=== PATIENT | male | born 1950 | race African-American/Black ===

== ENCOUNTER 2016-04-21 14:08 | Observation (INO) | payer OTHER ==
--- NOTE | 2016-04-21 14:18 | PDOC ---
History of Present Illness - History of Present Illness Initial Comments: 04/21/16 14:46 The patient is a 66 year old male with a past medical hx of IDDM, HTN who presents to the ED via EMS for evaluation of hyperglycemia. The patient states he has been eating a lot of candy since last night. He also reports he has been eating a lot of food. He reports his aide took his blood sugar levels this morning. She saw the level was very high and though he did not look well so called 911. He reports he feels fine while in the ED. The patient denies chest pain, SOB The patient denies headache, paresthesias, dizziness The patient denies nausea, vomiting, diarrhea PCP: Dr armani wellington <Mili Burris - Last Filed: 04/21/16 15:46> <Lucy Martell - Last Filed: 04/22/16 06:26> - General History Source: Patient Exam Limitations: No Limitations <Jess Terry - Last Filed: 04/23/16 11:39> - General Stated Complaint: HYPERGLYCEMIA Time Seen by Provider: 04/21/16 14:18 Past History <Mili Burris - Last Filed: 04/21/16 15:46> <Lucy Martell - Last Filed: 04/22/16 06:26> - Past Medical History Anemia: No Asthma: No Cancer: No Cardiac Disorders: Yes CVA: No COPD: No CHF: No DVT: No Dementia: No Diabetes: Yes Dialysis: No GI Disorders: No Disorders: No HTN: Yes Hypercholesterolemia: Yes Liver Disease: No Seizures: No Thyroid Disease: No - Surgical History Abdominal Surgery: No Appendectomy: No Cardiac Surgery: Yes (CARDIAC STENT) Cholecystectomy: No Lung Surgery: No Neurologic Surgery: No Orthopedic Surgery: No - Immunization History Immunization Up to Date: Yes - Psycho/Social/Smoking Cessation Hx Anxiety: No Suicidal Ideation: No Smoking Status: Yes Smoking History: Never smoked Have you smoked in the past 12 months: Yes Number of Cigarettes Smoked Daily: 4 Cigars Per Day: 0 'Breaking Loose' booklet given: 09/08/11 Hx Alcohol Use: No Drug/Substance Use Hx: No Substance Use Type: Alcohol, Cocaine, Marijuana Hx Substance Use Treatment: No <Jess Terry - Last Filed: 04/23/16 11:39> - Past Medical History Allergies/Adverse Reactions: Allergies Allergy/AdvReac Type Severity Reaction Status Date / Time No Known Allergies Allergy Verified 04/21/16 22:04 Home Medications: Ambulatory Orders Amlodipine Besylate [Norvasc -] 5 mg PO DAILY 07/16/13 Aspirin [ASA -] 81 mg PO DAILY 07/16/13 Carvedilol 3.125 mg PO DAILY 07/16/13 Furosemide [Lasix -] 40 mg PO DAILY 07/16/13 Lisinopril [Prinivil] 20 mg PO DAILY 07/16/13 Atorvastatin Ca [Lipitor] 40 mg PO HS #30 tablet 08/13/14 Fenofibric Acid [Trilipix -] 135 mg PO DAILY #30 cap 08/13/14 Hum Insulin NPH/Reg Insulin Hm [Novolin 70-30 100 Unit/ml Vial] 50 unit SQ BID 01/22/15 Naproxen [Naprosyn -] 500 mg PO BID PRN #20 tablet 03/10/15 Potassium Chloride [K-Dur] 20 meq PO BID #10 tab.er.prt 03/10/15 Review of Systems - Review of Systems Able to Perform ROS?: Yes Comments:: 04/21/16 14:47 GENERAL/CONSTITUTIONAL: No: fever, chills, weakness, loss of appetite. HEAD, EYES, EARS, NOSE AND THROAT: No: change in vision, ear pain, discharge, sore throat, throat swelling. CARDIOVASCULAR: No: chest pain, lightheadedness, palpitations, syncope RESPIRATORY: No: cough, shortness of breath, wheezing, hemoptysis, stridor. GASTROINTESTINAL: No: nausea, vomiting, abdominal cramping, diarrhea, rectal bleeding, constipation. GENITOURINARY: No: dysuria, hematuria, frequency, urgency, flank pain. MUSCULOSKELETAL: No: back pain, neck pain, joint pain, muscle swelling or pain SKIN: No: lesions, pallor, rash or easy bruising. NEUROLOGIC: No: headache, vertigo, paresthesias, weakness ENDOCRINE: No: unexplained weight gain or loss HEMATOLOGIC/LYMPHATIC: No: anemia, easy bleeding, swelling nodes <Mili Burris - Last Filed: 04/21/16 15:46> *Physical Exam - Vital Signs Last Vital Signs Temp Pulse Resp BP Pulse Ox 98.8 F 100 H 20 127/82 97 04/21/16 14:17 04/21/16 14:17 04/21/16 14:17 04/21/16 14:17 04/21/16 14:17 - Physical Exam Comments: 04/21/16 15:46 GENERAL: The patient is in no acute distress. HEAD: Normal with no signs of trauma. EYES: PERRLA, EOMI, sclera anicteric, conjunctiva clear. ENT: +Dry mucous membranes. Ears normal, nares patent, oropharynx clear without exudates. NECK: Normal range of motion, supple without lymphadenopathy, JVD, or masses. LUNGS: Breath sounds equal, clear to auscultation bilaterally. No wheezes, and no crackles. HEART:Regular rate and rhythm, normal S1 and S2 without murmur, rub or gallop. ABDOMEN: Soft, nontender, normoactive bowel sounds. No guarding, no rebound. EXTREMITIES: Normal range of motion, no edema. No clubbing or cyanosis. No erythema, or tenderness. NEUROLOGICAL: Cranial nerves II through XII grossly intact. Normal speech. No focal neurological deficits. MUSCULOSKELETAL: Back nontender to palpation, no CVA tenderness SKIN: Warm, Dry, normal turgor, no rashes or lesions noted. <Mili Burris - Last Filed: 04/21/16 15:46> - Vital Signs Last Vital Signs Temp Pulse Resp BP Pulse Ox 98.0 F 95 H 18 136/84 96 04/21/16 21:03 04/21/16 21:03 04/21/16 21:03 04/21/16 21:03 04/21/16 21:03 <Lucy Martell - Last Filed: 04/22/16 06:26> ED Treatment Course - LABORATORY CBC & Chemistry Diagram: 04/21/16 14:49 04/21/16 14:49 <Mili Burris - Last Filed: 04/21/16 15:46> - LABORATORY CBC & Chemistry Diagram: 04/21/16 14:49 04/21/16 14:49 - ADDITIONAL ORDERS Additional order review: Laboratory Results 04/21/16 04/21/16 04/21/16 22:20 20:09 15:52 Sodium Potassium Chloride Carbon Dioxide Anion Gap BUN Creatinine Creat Clearance w eGFR POC Glucometer 323.47170 > 400 Random Glucose Calcium Total Bilirubin AST ALT Alkaline Phosphatase Total Protein Albumin Urine Color Urine Appearance Urine pH Ur Specific [place] Urine Protein Urine Glucose (UA) Urine Ketones Urine Blood Urine Nitrite Urine Bilirubin Urine Urobilinogen Ur Leukocyte Esterase Acetone, Qual Negative 04/21/16 04/21/16 15:52 14:49 Sodium 135 L Potassium 3.7 Chloride 95 L Carbon Dioxide 27 Anion Gap 13 BUN 15 D Creatinine 1.2 Creat Clearance w eGFR > 60 POC Glucometer Random Glucose 571 H* D Calcium 9.5 Total Bilirubin 1.0 D AST 14 L D ALT 34 D Alkaline Phosphatase 150 H D Total Protein 7.2 Albumin 4.2 Urine Color Colorless Urine Appearance Clear Urine pH 5.0 Ur Specific [place] 1.022 Urine Protein Negative Urine Glucose (UA) 3+ H Urine Ketones Negative Urine Blood Negative Urine Nitrite Negative Urine Bilirubin Negative Urine Urobilinogen Negative Ur Leukocyte Esterase Negative Acetone, Qual 04/21/16 04/21/16 04/21/16 22:20 20:09 14:49 RBC 4.89 MCV 84.5 MCHC 33.0 RDW 14.7 MPV 9.1 D Neutrophils % 50.9 D Lymphocytes % 39.1 D Monocytes % 7.7 Eosinophils % 1.6 Basophils % 0.7 POC Glucometer 323.03265 > 400 - Medications Given in the ED: ED Medications Discontinued Medications Generic Name Dose Route Start Last Admin Trade Name Freq PRN Reason Stop Dose Admin Sodium Chloride 1,000 mls @ 125 mls/hr 04/21/16 14:19 04/21/16 15:03 Normal Saline - IV 04/21/16 22:18 125 mls/hr ASDIR STA Administration Insulin Human Regular 10 units 04/21/16 15:29 04/21/16 15:45 Novolin R Vial *Ivpush / Er / Icu Only* SQ 04/21/16 15:30 10 units ONCE ONE Administration Insulin Human Regular 10 units 04/21/16 18:29 04/21/16 18:38 Novolin R Vial *Ivpush / Er / Icu Only* SQ 04/21/16 18:30 10 units ONCE ONE Administration Insulin Human Regular 10 units 04/21/16 20:37 04/21/16 20:54 Novolin R Vial *Ivpush / Er / Icu Only* SQ 04/21/16 20:38 10 unit ONCE ONE Administration Potassium Chloride 40 meq 04/21/16 21:08 04/21/16 21:26 K-Dur - PO 04/21/16 21:09 40 meq ONCE ONE Administration Sodium Chloride 1,000 ml 04/21/16 22:14 04/21/16 22:28 Normal Saline - IV 04/21/16 22:15 1,000 ml ONCE ONE Administration <Lucy Martell - Last Filed: 04/22/16 06:26> - LABORATORY CBC & Chemistry Diagram: 04/23/16 06:20 04/23/16 06:20 <Jess Terry - Last Filed: 04/23/16 11:39> Medical Decision Making - Medical Decision Making 04/21/16 23:42 Pt was signed out to me. He has poorly controlled DM, as he eats a lot of sugar and candy; no DKA. No other complaints. After 1L saline and 20U regular insulin given IV by previous doctor, pt's blood glucose came down to 400s. I gave him another L saline and 10 U SQ regular insulin, and he ate a small turket sandwich in the ER. Blood sugar was 320s. Pt is stable for discharge, but he doesn't have his home kets, and he cannot get in touch with his daughter or neice to take him home, as one of them has the keys. <Lucy Martell - Last Filed: 04/22/16 06:26> - Medical Decision Making 04/21/16 14:18 A portion of this note was documented by scribe services under my direction. I have reviewed the details of the note, within reason, and agree with the documentation with the following case summary and management plan written by me. Nursing documentation reviewed and incorporated into medical decision making 04/21/16 16:17 66 yo M h/o IDDM, HTN, HLD, CVA with Left sided óscar paresis, medication non compliance Pt presents to the ER because his [employer] felt that he looked Ill The patient has no actual complaints besides being thirsty Since his stroke, he falls frequently He denies pain in any location currently Denies cough, dysuria, abd pain Apparently a few days ago, he asked the [employer] to get him treats for the home. She brought back a bag of candies that the patient has been eating. He states that he has been eating a large number of Tootsie Rolls, has not checked his blood glucose, does not know his medications or how he should be taking them. On examination: RRR, Lungs CTA No abd tenderness Dry mucous membranes DD: DKA, Hyperosmolar non ketotic state, Hyperglycemia, dehydration Will do labs including acetone Will hydrate Will give insulin Will re assess 04/21/16 16:33 Laboratory Tests 04/21/16 04/21/16 14:49 14:49 WBC 7.1 D Hgb 13.6 Hct 41.3 Plt Count 199 Neutrophils % 50.9 D Lymphocytes % 39.1 D Sodium 135 L Potassium 3.7 Chloride 95 L Carbon Dioxide 27 Anion Gap 13 BUN 15 D Creatinine 1.2 Random Glucose 571 H* D 04/21/16 17:07 Laboratory Tests 04/21/16 04/21/16 15:52 15:52 Urine Blood Negative Urine Nitrite Negative Ur Leukocyte Esterase Negative Acetone, Qual Negative Will repeat FS If improved, will discharge to home Pt got 1 L NS PT drank 2 liters or water 04/21/16 18:30 Fingerstick re checked "OVERRANGE" Will do additional fluids and Insulin 10 units Pt seen with and signed out to Dr Martell <Jess Terry - Last Filed: 04/23/16 11:39> *DC/Admit/Observation/Transfer - Attestations Scribe Attestion: 04/21/16 14:46 Documentation prepared by Mili Burris, acting as medical liaison for Jess Terry MD/DO. <Mili Burris - Last Filed: 04/21/16 15:46> - Discharge Dispostion Admit: No <Lucy Martell - Last Filed: 04/22/16 06:26> - Discharge Dispostion Admit: No <Jess Terry - Last Filed: 04/23/16 11:39> Diagnosis at time of Disposition: Hyperglycemia due to type 1 diabetes mellitus Diabetes mellitus, insulin dependent (IDDM), uncontrolled Qualifiers: Diabetes mellitus complication status: with other specified complication Qualified Code(s): E10.69 - Type 1 diabetes mellitus with other specified complication - Discharge Dispostion Condition at time of disposition: Fair - Patient Instructions
[2016-04-21] MEDS ORDERED: SODIUM CHLORIDE 1,000 ML IV STA (14:19)
[2016-04-21 14:25] VITALS: BMI 25.8
[2016-04-21 14:54] LABS: BASOPHIL 0.7 % (0-2.0); EOSINOPHIL 1.6 % (0-4.5); MCH 27.9 pg (25.7-33.7); MEAN CELL VOLUME 84.5 fl (80-96); MEAN PLT VOLUME 9.1 fl (7.5-11.1); NEUTROPHILS 50.9 % (42.8-82.8); PLATELET COUNT 199 K/MM3 (134-434); RDW 14.7 % (11.9-15.9); WHITE BLOOD COUNT 7.1 K/mm3 (4.0-10.0)
[2016-04-21 15:19] LABS: ALBUMIN 4.2 g/dl (3.4-5.0); ANION GAP 13 (8-16); CALCIUM 9.5 mg/dL (8.5-10.1); CO2 27 mmol/L (21-32); CREATININE 1.2 mg/dL (0.7-1.3); SGOT/AST 14 U/L (15-37); SGPT/ALT 34 U/L (12-78)
[2016-04-21 15:22] LABS: ALK PHOS 150 U/L (45-117); TOT PROT 7.2 g/dl (6.4-8.2)
[2016-04-21 15:25] LABS: GLUCOSE,RANDOM 571 mg/dL (74-106)
[2016-04-21] MEDS ORDERED: INSULIN REGULAR HUMAN 100 UNITS/ML *VIAL SQ ONE ×3 (15:29→20:37)
[2016-04-21] MEDS ORDERED: INSULIN REGULAR HUMAN 100 UNITS/ML *VIAL ONE ×3 (15:44→20:48)
[2016-04-21 16:50] LABS: URINE APPEARANCE CLEAR; URINE BILIRUBIN NEGATIVE (NEGATIVE); URINE BLOOD NEGATIVE (NEGATIVE); URINE COLOR COLORLESS; URINE GLUCOSE (UA) 3+ (NEGATIVE); URINE KETONE NEGATIVE (NEGATIVE); URINE LEUK ESTERASE NEGATIVE (NEGATIVE); URINE NITRITE NEGATIVE (NEGATIVE); URINE PROTEIN NEGATIVE (NEGATIVE); URINE UROBILINOGEN NEGATIVE E.U./dl (0.2-1.0)
[2016-04-21] MEDS ORDERED: POTASSIUM CHLORIDE TABS 20 MEQ TABLET.ER (FP) PO ONE ×2 (21:08→21:16)
[2016-04-21] MEDS ORDERED: SODIUM CHLORIDE 0.9% 1000 ML INFUS.BAG IV ONE (22:14)
--- NOTE | 2016-04-22 09:11 | PDOC ---
*Physical Exam - Vital Signs Last Vital Signs Temp Pulse Resp BP Pulse Ox 97.7 F 98 H 16 150/97 97 04/22/16 08:55 04/22/16 08:55 04/22/16 08:55 04/22/16 08:55 04/22/16 08:55 <Daija Martinez - Last Filed: 04/22/16 09:35> - Vital Signs Last Vital Signs Temp Pulse Resp BP Pulse Ox 97.8 F 84 17 154/82 95 04/22/16 02:57 04/22/16 02:57 04/22/16 02:57 04/22/16 02:57 04/22/16 02:57 - Physical Exam Comments: 04/22/16 09:08 SIGN IN Sign-out received from outgoing Emergency Physician Pt interviewed and examined Ancillary studies reviewed Transfer of care from Dr. Martell History as noted by Dr. Terry Laboratory Results - last 24 hr 04/21/16 04/21/16 04/21/16 14:49 14:49 15:52 WBC 7.1 D RBC 4.89 Hgb 13.6 Hct 41.3 MCV 84.5 MCHC 33.0 RDW 14.7 Plt Count 199 MPV 9.1 D Neutrophils % 50.9 D Lymphocytes % 39.1 D Monocytes % 7.7 Eosinophils % 1.6 Basophils % 0.7 Sodium 135 L Potassium 3.7 Chloride 95 L Carbon Dioxide 27 Anion Gap 13 BUN 15 D Creatinine 1.2 Creat Clearance w eGFR > 60 POC Glucometer Random Glucose 571 H* D Calcium 9.5 Total Bilirubin 1.0 D AST 14 L D ALT 34 D Alkaline Phosphatase 150 H D Total Protein 7.2 Albumin 4.2 Urine Color Colorless Urine Appearance Clear Urine pH 5.0 Ur Specific [place] 1.022 Urine Protein Negative Urine Glucose (UA) 3+ H Urine Ketones Negative Urine Blood Negative Urine Nitrite Negative Urine Bilirubin Negative Urine Urobilinogen Negative Ur Leukocyte Esterase Negative Acetone, Qual 04/21/16 04/21/16 04/21/16 15:52 20:09 22:20 WBC RBC Hgb Hct MCV MCHC RDW Plt Count MPV Neutrophils % Lymphocytes % Monocytes % Eosinophils % Basophils % Sodium Potassium Chloride Carbon Dioxide Anion Gap BUN Creatinine Creat Clearance w eGFR POC Glucometer > 400 323.48588 Random Glucose Calcium Total Bilirubin AST ALT Alkaline Phosphatase Total Protein Albumin Urine Color Urine Appearance Urine pH Ur Specific [place] Urine Protein Urine Glucose (UA) Urine Ketones Urine Blood Urine Nitrite Urine Bilirubin Urine Urobilinogen Ur Leukocyte Esterase Acetone, Qual Negative 04/22/16 09:10 Patient had multiple doses of insulin and IV fluid, sugar went from almost 600, down to 323 Most recent glucose 337 Patient still confused, and unable to ambulate Had an unwitnessed fall Evaluated after fall - no obvious injury Multiple attempts were made to contact - unable to contact-will admit to hospitalist 04/22/16 10:21 Case discussed with hospitalist-Will place in observation Impression -DM OOC <Linda Rose - Last Filed: 04/24/16 08:12> ED Treatment Course - LABORATORY CBC & Chemistry Diagram: 04/21/16 14:49 04/21/16 14:49 - ADDITIONAL ORDERS Additional order review: Laboratory Results 04/21/16 22:20 POC Glucometer 323.20809 04/21/16 04/21/16 04/21/16 22:20 20:09 14:49 RBC 4.89 MCV 84.5 MCHC 33.0 RDW 14.7 MPV 9.1 D Neutrophils % 50.9 D Lymphocytes % 39.1 D Monocytes % 7.7 Eosinophils % 1.6 Basophils % 0.7 POC Glucometer 323.64637 > 400 - Medications Given in the ED: ED Medications Discontinued Medications Generic Name Dose Route Start Last Admin Trade Name Freq PRN Reason Stop Dose Admin Sodium Chloride 1,000 mls @ 125 mls/hr 04/21/16 14:19 04/21/16 15:03 Normal Saline - IV 04/21/16 22:18 125 mls/hr ASDIR STA Administration Insulin Human Regular 10 units 04/21/16 15:29 04/21/16 15:45 Novolin R Vial *Ivpush / Er / Icu Only* SQ 04/21/16 15:30 10 units ONCE ONE Administration Insulin Human Regular 10 units 04/21/16 18:29 04/21/16 18:38 Novolin R Vial *Ivpush / Er / Icu Only* SQ 04/21/16 18:30 10 units ONCE ONE Administration Insulin Human Regular 10 units 04/21/16 20:37 04/21/16 20:54 Novolin R Vial *Ivpush / Er / Icu Only* SQ 04/21/16 20:38 10 unit ONCE ONE Administration Potassium Chloride 40 meq 04/21/16 21:08 04/21/16 21:26 K-Dur - PO 04/21/16 21:09 40 meq ONCE ONE Administration Sodium Chloride 1,000 ml 04/21/16 22:14 04/21/16 22:28 Normal Saline - IV 04/21/16 22:15 1,000 ml ONCE ONE Administration <Daija Martinez - Last Filed: 04/22/16 09:35> - LABORATORY CBC & Chemistry Diagram: 04/23/16 06:20 04/23/16 06:20 - ADDITIONAL ORDERS Additional order review: Laboratory Results 04/21/16 22:20 POC Glucometer 323.28929 04/21/16 04/21/16 04/21/16 22:20 20:09 14:49 RBC 4.89 MCV 84.5 MCHC 33.0 RDW 14.7 MPV 9.1 D Neutrophils % 50.9 D Lymphocytes % 39.1 D Monocytes % 7.7 Eosinophils % 1.6 Basophils % 0.7 POC Glucometer 323.29249 > 400 - Medications Given in the ED: ED Medications Discontinued Medications Generic Name Dose Route Start Last Admin Trade Name Freq PRN Reason Stop Dose Admin Sodium Chloride 1,000 mls @ 125 mls/hr 04/21/16 14:19 04/21/16 15:03 Normal Saline - IV 04/21/16 22:18 125 mls/hr ASDIR STA Administration Insulin Human Regular 10 units 04/21/16 15:29 04/21/16 15:45 Novolin R Vial *Ivpush / Er / Icu Only* SQ 04/21/16 15:30 10 units ONCE ONE Administration Insulin Human Regular 10 units 04/21/16 18:29 04/21/16 18:38 Novolin R Vial *Ivpush / Er / Icu Only* SQ 04/21/16 18:30 10 units ONCE ONE Administration Insulin Human Regular 10 units 04/21/16 20:37 04/21/16 20:54 Novolin R Vial *Ivpush / Er / Icu Only* SQ 04/21/16 20:38 10 unit ONCE ONE Administration Potassium Chloride 40 meq 04/21/16 21:08 04/21/16 21:26 K-Dur - PO 04/21/16 21:09 40 meq ONCE ONE Administration Sodium Chloride 1,000 ml 04/21/16 22:14 04/21/16 22:28 Normal Saline - IV 04/21/16 22:15 1,000 ml ONCE ONE Administration <Linda Rose - Last Filed: 04/24/16 08:12> Medical Decision Making - Medical Decision Making 04/22/16 09:[address] Aneta Abarca. 04/22/16 09:[address] Aneta Abarca. <Daija Martinez - Last Filed: 04/22/16 09:35> *DC/Admit/Observation/Transfer - Attestations Scribe Attestion: 04/22/16 09:35 Documentation prepared by Daija Martinez, acting as medical office secretary for Linda Rose MD. <Daija Martinez - Last Filed: 04/22/16 09:35> - Discharge Dispostion Admit: Yes <Linda Rose - Last Filed: 04/24/16 08:12> Diagnosis at time of Disposition: Hyperglycemia, Uncontrolled diabetes mellitus - Discharge Dispostion Condition at time of disposition: Stable - Referrals - Patient Instructions - Post Discharge Activity
[2016-04-22] MEDS ORDERED: SODIUM CHLORIDE 250 ML IV STA (10:33)
--- NOTE | 2016-04-22 10:39 | HP ---
CHIEF COMPLAINT: PCP: HISTORY OF PRESENT ILLNESS: 66 year old male with a past medical hx of IDDM, HTN brought to hospital for hyperglycemia. Initial glucose reading in the ER was 571mg/dl The patient states he has been eating a lot of candy since last night.He reports his aide took his blood sugar levels this morning. She saw the level was very high so called 911. Patient with no complaints except for mild abdominal pain. ER course was notable for: (1) insulin administation (2) IV fluids (3) Recent Travel: denies PAST MEDICAL HISTORY: HTN, IDDM, dylipidemia, CVA PAST SURGICAL HISTORY: right hand surgery Social History: Smoking: denies Alcohol:not currently using Drugs: denies using illicit drugs Family History: denied Allergies- NKDA HOME MEDICATIONS: Home Medications Medication Instructions Recorded Amlodipine Besylate [Norvasc -] 5 mg PO DAILY 07/16/13 Aspirin [ASA -] 81 mg PO DAILY 07/16/13 Carvedilol 3.125 mg PO DAILY 07/16/13 Furosemide [Lasix -] 40 mg PO DAILY 07/16/13 Lisinopril [Prinivil] 20 mg PO DAILY 07/16/13 Atorvastatin Ca [Lipitor] 40 mg PO HS #30 tablet 08/13/14 Fenofibric Acid [Trilipix -] 135 mg PO DAILY #30 cap 08/13/14 Hum Insulin NPH/Reg Insulin Hm 50 unit SQ BID 01/22/15 [Novolin 70-30 100 Unit/ml Vial] Naproxen [Naprosyn -] 500 mg PO BID PRN #20 tablet 03/10/15 Potassium Chloride [K-Dur] 20 meq PO BID #10 tab.er.prt 03/10/15 REVIEW OF SYSTEMS CONSTITUTIONAL: Absent: fever, chills, diaphoresis, generalized weakness, malaise, loss of appetite, weight change HEENT: Absent: rhinorrhea, nasal congestion, throat pain, throat swelling, difficulty swallowing, mouth swelling, ear pain, eye pain, visual changes CARDIOVASCULAR: Absent: chest pain, syncope, palpitations, irregular heart rate, lightheadedness , peripheral edema RESPIRATORY: Absent: cough, shortness of breath, dyspnea with exertion, orthopnea, wheezing, stridor, hemoptysis GASTROINTESTINAL: Absent: abdominal distension, nausea, vomiting, diarrhea, constipation, melena , hematochezia +abdominal pain GENITOURINARY: Absent: dysuria, frequency, urgency, hesitancy, hematuria, flank pain, genital pain MUSCULOSKELETAL: Absent: myalgia, arthralgia, joint swelling, back pain, neck pain SKIN: Absent: rash, itching, pallor HEMATOLOGIC/IMMUNOLOGIC: Absent: easy bleeding, easy bruising, lymphadenopathy, frequent infections ENDOCRINE: Absent: unexplained weight gain, unexplained weight loss, heat intolerance, cold intolerance NEUROLOGIC: Absent: headache, focal weakness, dizziness, seizure, mental status changes, bladder or bowel incontinence +unsteady gait PSYCHIATRIC: Absent: anxiety, depression, suicidal or homicidal ideation, hallucinations. PHYSICAL EXAMINATION Vital Signs - 24 hr 04/21/16 04/21/16 04/21/16 14:17 18:07 21:03 Temperature 98.8 F 98 F 98.0 F Pulse Rate 100 H Pulse Rate [ 88 95 H Right Radial] Respiratory 20 16 18 Rate Blood Pressure 127/82 Blood Pressure 122/86 136/84 [Left Arm] O2 Sat by Pulse 97 100 96 Oximetry (%) 04/22/16 04/22/16 04/22/16 02:57 07:19 08:55 Temperature 97.8 F 97.7 F 97.7 F Pulse Rate Pulse Rate [ 84 92 H 98 H Right Radial] Respiratory 17 17 16 Rate Blood Pressure Blood Pressure 154/82 151/93 150/97 [Left Arm] O2 Sat by Pulse 95 97 97 Oximetry (%) GENERAL: Awake, alert, and fully oriented, in no acute distress. HEAD: Normal with no signs of trauma. EYES: sclera anicteric, conjunctiva clear. EARS, NOSE, THROAT: Ears normal, nares patent, oropharynx clear without exudates. Moist mucous membranes. NECK: Normal range of motion, supple without lymphadenopathy, JVD, or masses. LUNGS: Breath sounds equal, clear to auscultation bilaterally. No wheezes, and no crackles. No accessory muscle use. HEART: tachycardia, normal S1 and S2 without murmur, rub or gallop. ABDOMEN: Soft, nontender, not distended, normoactive bowel sounds, no guarding, no rebound tenderness MUSCULOSKELETAL: Normal range of motion at all joints. No bony deformities or tenderness. UPPER EXTREMITIES: 2+ pulses, warm, well-perfused. No cyanosis. No clubbing. No peripheral edema. LOWER EXTREMITIES: 2+ pulses, warm, well-perfused. No peripheral edema. NEUROLOGICAL: Normal speech PSYCHIATRIC: Cooperative. Good eye contact. Appropriate mood and affect. SKIN: Warm, dry, normal turgor, no rashes or lesions noted. Laboratory Results - last 24 hr 04/21/16 04/21/16 04/21/16 14:49 14:49 15:52 WBC 7.1 D RBC 4.89 Hgb 13.6 Hct 41.3 MCV 84.5 MCHC 33.0 RDW 14.7 Plt Count 199 MPV 9.1 D Neutrophils % 50.9 D Lymphocytes % 39.1 D Monocytes % 7.7 Eosinophils % 1.6 Basophils % 0.7 Sodium 135 L Potassium 3.7 Chloride 95 L Carbon Dioxide 27 Anion Gap 13 BUN 15 D Creatinine 1.2 Creat Clearance w eGFR > 60 POC Glucometer Random Glucose 571 H* D Calcium 9.5 Total Bilirubin 1.0 D AST 14 L D ALT 34 D Alkaline Phosphatase 150 H D Total Protein 7.2 Albumin 4.2 Urine Color Colorless Urine Appearance Clear Urine pH 5.0 Ur Specific [place] 1.022 Urine Protein Negative Urine Glucose (UA) 3+ H Urine Ketones Negative Urine Blood Negative Urine Nitrite Negative Urine Bilirubin Negative Urine Urobilinogen Negative Ur Leukocyte Esterase Negative Acetone, Qual 04/21/16 04/21/16 04/21/16 15:52 20:09 22:20 WBC RBC Hgb Hct MCV MCHC RDW Plt Count MPV Neutrophils % Lymphocytes % Monocytes % Eosinophils % Basophils % Sodium Potassium Chloride Carbon Dioxide Anion Gap BUN Creatinine Creat Clearance w eGFR POC Glucometer > 400 323.26760 Random Glucose Calcium Total Bilirubin AST ALT Alkaline Phosphatase Total Protein Albumin Urine Color Urine Appearance Urine pH Ur Specific [place] Urine Protein Urine Glucose (UA) Urine Ketones Urine Blood Urine Nitrite Urine Bilirubin Urine Urobilinogen Ur Leukocyte Esterase Acetone, Qual Negative ASSESSMENT/PLAN: 66yo male with HTN, uncontrolled IDDM and DLP admitted for hyperglycemia 2/2 to noncompliance with medications and diet. Latest POC glucose was 323 mg/dl. 1) Uncontrolled DM -Novolog 70/30 50 units bid -aspart sliding scale -IVF hydration -diabetic diet 2) HTN -controlled -lisinsopril 20mg daily -carvedilol 3.125 mg bid -amlodipine 5mg daily 3) CVA history -ASA 81mg daily 4)dyslipidemia -continue atorvastatin 40mg daily DVT risk- low risk -b/l SCDs Visit type - Emergency Visit Emergency Visit: Yes ED Registration Date: 04/22/16 Care time: The patient presented to the Emergency Department on the above date and was hospitalized for further evaluation of their emergent condition. - New Patient This patient is new to me today: Yes Date on this admission: 04/22/16 - Critical Care Critical Care patient: No
--- NOTE | 2016-04-22 10:51 | PN ---
Teaching Attending Note Name of Resident: Danica Rosas ATTENDING PHYSICIAN STATEMENT I saw and evaluated the patient. I reviewed the resident's note and discussed the case with the resident. I agree with the resident's findings and plan as documented. SUBJECTIVE: OBJECTIVE: ASSESSMENT AND PLAN:
[2016-04-22] MEDS ORDERED: LISINOPRIL 20 MG TABLET (FP) PO ONE (11:27)
[2016-04-22] MEDS ORDERED: SODIUM CHLORIDE 1,000 ML IV SCH (11:30)
[2016-04-22] MEDS ORDERED: LISINOPRIL 20 MG TABLET (FP) ONE (11:58)
[2016-04-22] MEDS ORDERED: INSULIN SLIDING SCALE (NOVOLOG) 1 VIAL SQ SCH (16:30)
[2016-04-22] MEDS: INSULIN (NOVOLOG MIX 70/30) 100 UNITS/ML MDV SQ SCH (16:38)
[2016-04-22] MEDS: CARVEDILOL 3.125 MG TABLET (FP) PO SCH (21:24)
[2016-04-22] MEDS ORDERED: ATORVASTATIN CA 40 MG TABLET (FP) PO SCH (22:00)
[2016-04-23] MEDS ORDERED: amLODIPine BESYLATE 5 MG TABLET (FP) PO ONE (02:23)
[2016-04-23] MEDS: INSULIN (NOVOLOG MIX 70/30) 100 UNITS/ML MDV SQ SCH ×2 (06:50→16:34)
[2016-04-23 07:07] LABS: MCH 28.1 pg (25.7-33.7); MCHC 33.4 g/dl (32.0-35.9); MEAN CELL VOLUME 84.2 fl (80-96); MEAN PLT VOLUME 9.4 fl (7.5-11.1); PLATELET COUNT 169 K/MM3 (134-434); RDW 14.2 % (11.9-15.9); WHITE BLOOD COUNT 7.5 K/mm3 (4.0-10.0)
[2016-04-23 07:40] LABS: CALCIUM 8.8 mg/dL (8.5-10.1); CREATININE 0.7 mg/dL (0.7-1.3)
[2016-04-23] MEDS ORDERED: SODIUM CHLORIDE 1,000 ML IV SCH (08:16)
[2016-04-23] MEDS: CARVEDILOL 3.125 MG TABLET (FP) PO SCH ×2 (09:49→21:39)
[2016-04-23] MEDS: amLODIPine BESYLATE 5 MG TABLET (FP) PO SCH (09:49)
[2016-04-23] MEDS: LISINOPRIL 20 MG TABLET (FP) PO SCH (09:49)
[2016-04-23] MEDS: FUROSEMIDE 40 MG TABLET (FP) PO SCH (09:49)
[2016-04-23] MEDS: ASPIRIN 81 MG CHEWABLE TABLETS PO SCH (09:49)
[2016-04-23] MEDS: FENOFIBRIC ACID 135 MG CAP PO SCH (09:49)
[2016-04-23] MEDS ORDERED: ASPIRIN 81 MG CHEWABLE TABLETS PO SCH (10:00)
[2016-04-23] MEDS ORDERED: amLODIPine BESYLATE 5 MG TABLET (FP) PO SCH (10:00)
[2016-04-23] MEDS ORDERED: ACETAMINOPHEN 325 MG TABLET (FP) PO ONE (10:45)
[2016-04-23] MEDS ORDERED: INSULIN (NOVOLOG) ASPART 100 UNITS/ML 10ML VIAL SQ ONE (12:15)
[2016-04-23] MEDS: INSULIN SLIDING SCALE (NOVOLOG) 1 VIAL SQ SCH ×2 (16:35→21:38)
[2016-04-23] MEDS ORDERED: INSULIN (NOVOLOG MIX 70/30) 100 UNITS/ML MDV SQ ONE (16:42)
--- NOTE | 2016-04-23 17:48 | DS ---
Physical Exam: SUBJECTIVE: Patient seen and examined. He has some residual L sided rib pain, abd pain resolved. He is ready to go home. OBJECTIVE: Vital Signs Period Temp Pulse Resp BP Sys/Coates Pulse Ox Last 24 Hr 97.8 F-98.5 F 83-93 18-20 147-176/68-97 94 PHYSICAL EXAM Neuro: alert, oriented to president, person, daughter, place cn 2-12intact, L sided weakness, R +5/5 motor, L 4/5 motor + sensory HEENT: without teeth Pulm: CTAB CV: s1 s2 rrr no mrg Abd: s nt nd + bs Ext: Warm, no le edema Laboratory Results - last 24 hr 04/22/16 04/23/16 04/23/16 21:23 06:20 06:20 WBC 7.5 RBC 4.44 Hgb 12.5 Hct 37.4 MCV 84.2 MCHC 33.4 RDW 14.2 Plt Count 169 MPV 9.4 Sodium 143 Potassium 3.5 Chloride 108 H D Carbon Dioxide 29 Anion Gap 6 L BUN 11 D Creatinine 0.7 D POC Glucometer 196 Random Glucose 192 H D Calcium 8.8 HOSPITAL COURSE: Date of Admission:04/22/16 Date of Discharge: 04/23/16 Minutes to complete discharge: 35 Discharge Summary Reason For Visit: HYPERGLYCEMIA, DIABETES TYPE 1 Current Active Problems Diabetes mellitus, insulin dependent (IDDM), uncontrolled (Acute) Hyperglycemia due to type 1 diabetes mellitus (Acute) Hospital Course: Initial Hospital Course: 66 year old male with a past medical hx of IDDM, HTN brought to hospital for hyperglycemia. Initial glucose reading in the ER was 571mg/dl The patient states he has been eating a lot of candy since last night.He reports his aide took his blood sugar levels this morning. She saw the level was very high so called 911. Patient with no complaints except for mild abdominal pain. Subsequent Hospital Course/Progress Note/Discharge Summary: A/P: 66 year old male with HTN, uncontrolled IDDM and DLP admitted for hyperglycemia 2/2 to noncompliance with medications and diet 1. Uncontrolled DM II - Resolved s/p Fluids and novolog - Resume Novolog 70/30 50 units bid - Counseled pt on diet control 2. s/p fall in ED - Hip/pelvic xray and rib xrays negative for acute fx 3. HTN - Stable at d/c 129/86 - Resume Lisinopril 20mg daily - Resume Carvedilol 3.125 mg BID; - Resume Amlodipine 5mg daily 3. CVA history - ASA 81mg daily - Nursing Aid at home 4. HLD - Atorvastatin 40mg daily Dispo: - Home with above meds and PCP follow up Condition: Stable - Instructions Diet, Activity, Other Instructions: Please return to the ED for any new, persistent, worsening symptoms. Follow up with your medical doctor next week Stop eating candy and foods with high sugar content and carbohydrates Take your insulin regularly Resume home medications regularly and keep current list with you at all times Referrals: Yamil Jeffery MD [Staff Physician] - Disposition: HOME - Home Medications Comprehensive Discharge Medication List: Ambulatory Orders Amlodipine Besylate [Norvasc -] 5 mg PO DAILY 07/16/13 Aspirin [ASA -] 81 mg PO DAILY 07/16/13 Carvedilol 3.125 mg PO DAILY 07/16/13 Furosemide [Lasix -] 40 mg PO DAILY 07/16/13 Lisinopril [Prinivil] 20 mg PO DAILY 07/16/13 Atorvastatin Ca [Lipitor] 40 mg PO HS #30 tablet 08/13/14 Fenofibric Acid [Trilipix -] 135 mg PO DAILY #30 cap 08/13/14 Hum Insulin NPH/Reg Insulin Hm [Novolin 70-30 100 Unit/ml Vial] 50 unit SQ BID 01/22/15 Potassium Chloride [K-Dur] 20 meq PO BID #10 tab.[email or web address].prt 03/10/15 This patient is new to me today: Yes Date on this admission: 04/23/16 Emergency Visit: Yes ED Registration Date: 04/22/16 Care time: The patient presented to the Emergency Department on the above date and was hospitalized for further evaluation of their emergent condition. Critical Care patient: No - Discharge Referral Referred to [facility] Med P.C.: No
[2016-04-23] MEDS ORDERED: INSULIN (NOVOLOG) ASPART 100 UNITS/ML 10ML VIAL ONE (21:09)
[2016-04-23] MEDS ORDERED: ATORVASTATIN CA 40 MG TABLET (FP) PO SCH (22:00)
[2016-04-24] MEDS: INSULIN (NOVOLOG MIX 70/30) 100 UNITS/ML MDV SQ SCH (06:31)
[2016-04-24] MEDS: INSULIN SLIDING SCALE (NOVOLOG) 1 VIAL SQ SCH ×2 (06:31→11:29)
[2016-04-24] MEDS ORDERED: ACETAMINOPHEN 325 MG TABLET (FP) PO ONE (06:52)
[2016-04-24] MEDS: CARVEDILOL 3.125 MG TABLET (FP) PO SCH (09:29)
[2016-04-24] MEDS: LISINOPRIL 20 MG TABLET (FP) PO SCH (09:29)
[2016-04-24] MEDS: amLODIPine BESYLATE 5 MG TABLET (FP) PO SCH (09:29)
[2016-04-24] MEDS: FUROSEMIDE 40 MG TABLET (FP) PO SCH (09:29)
[2016-04-24] MEDS: FENOFIBRIC ACID 135 MG CAP PO SCH (09:30)
[2016-04-24] MEDS: ASPIRIN 81 MG CHEWABLE TABLETS PO SCH (09:30)
[2016-04-24 10:00] VITALS: TEMP 98.4
[2016-04-24 14:03] VITALS: BP 158/80; PULSE 83
== END 2016-04-24 14:35 | disposition home or self-care (01) ==
LOC: JER 14:08 → JERBED 04-22 10:22 → J5S 04-22 13:49
PROVIDERS: ADMIT Internal Medicine; ATTEND Nurse Practitioner Acute Care
DX: E10.65 Type 1 diabetes mellitus with hyperglycemia (principal); Z79.4 Long term (current) use of insulin; I10 Essential (primary) hypertension; E78.5 Hyperlipidemia, unspecified; Z86.73 Personal history of transient ischemic attack (TIA), and cerebral infarction without residual deficits; Z91.14 Patient's other noncompliance with medication regimen
CPT/HCPCS: 36415; 71101-TC; 73523-TC; 80048; 80053; 81003; 82009; 85025; 85027; 87086; 97116-GP; 97162-PG; 99285-25; G0378

== ENCOUNTER 2016-11-03 11:08 | Emergency (ER) | payer OTHER ==
[2016-11-03 11:25] VITALS: TEMP 98.6; BMI 30.7
[2016-11-03 11:57] LABS: BASOPHIL 1.1 % (0-2.0); EOSINOPHIL 1.9 % (0-4.5); MCHC 32.8 g/dl (32.0-35.9); MEAN CELL VOLUME 85.4 fl (80-96); MEAN PLT VOLUME 9.1 fl (7.5-11.1); NEUTROPHILS 42.7 % (42.8-82.8); PLATELET COUNT 173 K/MM3 (134-434); RDW 15.5 % (11.9-15.9); WHITE BLOOD COUNT 6.3 K/mm3 (4.0-10.0)
[2016-11-03 12:11] LABS: INR 0.99 (0.82-1.09); PROTHROMBIN TIME (PATIENT) 10.9 SEC (9.98-11.88)
[2016-11-03 12:13] LABS: ACTIVATED PTT 32.5 SECONDS (26.9-34.4)
[2016-11-03 12:22] LABS: ALBUMIN 3.9 g/dl (3.4-5.0); ANION GAP 12 (8-16); BILIRUBIN,TOTAL 0.5 mg/dL (0.2-1.0); CALCIUM 8.8 mg/dL (8.5-10.1); CO2 24 mmol/L (21-32); CREATININE 1.1 mg/dL (0.7-1.3); SGOT/AST 16 U/L (15-37); SGPT/ALT 35 U/L (12-78); TOT PROT 6.9 g/dl (6.4-8.2)
[2016-11-03 12:23] LABS: ALK PHOS 106 U/L (45-117)
[2016-11-03 12:30] LABS: GLUCOSE,RANDOM 406 mg/dL (74-106)
[2016-11-03 12:30] LABS: TROPONIN I 0.02 ng/ml (0.00-0.05)
[2016-11-03] MEDS ORDERED: SODIUM CHLORIDE 1,000 ML IV STA ×2 (12:58→13:55)
[2016-11-03 13:08] LABS: URINE APPEARANCE CLEAR; URINE BILIRUBIN NEGATIVE (NEGATIVE); URINE BLOOD NEGATIVE (NEGATIVE); URINE COLOR STRAW; URINE GLUCOSE (UA) 3+ (NEGATIVE); URINE KETONE NEGATIVE (NEGATIVE); URINE LEUK ESTERASE NEGATIVE (NEGATIVE); URINE NITRITE NEGATIVE (NEGATIVE); URINE PROTEIN NEGATIVE (NEGATIVE); URINE UROBILINOGEN NEGATIVE mg/dL (0.2-1.0)
[2016-11-03] MEDS ORDERED: POTASSIUM CHLORIDE TABS 20 MEQ TABLET.ER (FP) PO ONE ×2 (13:14→13:43)
[2016-11-03] MEDS ORDERED: INSULIN REGULAR HUMAN 100 UNITS/ML *VIAL SQ ONE (13:27)
[2016-11-03 13:49] LABS: VENOUS PH 7.37 (7.32-7.42)
[2016-11-03 13:51] LABS: VENOUS BLOOD GAS HCO3 28.8 meq/L (19-25)
--- NOTE | 2016-11-03 14:12 | PDOC ---
History of Present Illness <Blair James - Last Filed: 11/03/16 15:50> - History of Present Illness Initial Comments: 11/03/16 14:07 "The patient is a 66 year old male, with a significant past medical history of hypertension and diabetes mellitus, who presents to the emergency department complaining of intermittent right upper quadrant abdominal pain for approx. two days. The patient describes the abdominal pain as sharp and states nothing makes the pain better or worse. He reports no changes to appetite and reports normal bowel movements. He denies any recent nausea, vomit, diarrhea or constipation. He denies any recent fevers, chills, headache or dizziness. He denies any recent chest pain or shortness of breath. Allergies: NKA Past surgical history: None reported. Primary Care Physician: Dr. Yamil Jeffery " <Mikey Busch - Last Filed: 11/03/16 16:32> - General Chief Complaint: Pain Stated Complaint: ABD PAIN Time Seen by Provider: 11/03/16 11:24 Past History <Blair James - Last Filed: 11/03/16 15:50> - Past Medical History Anemia: No Asthma: No Cancer: No Cardiac Disorders: Yes CVA: No COPD: No CHF: No DVT: No Dementia: No Diabetes: Yes Dialysis: No GI Disorders: No Disorders: No HTN: Yes Hypercholesterolemia: Yes Liver Disease: No Seizures: No Thyroid Disease: No - Surgical History Abdominal Surgery: No Appendectomy: No Cardiac Surgery: Yes (CARDIAC STENT) Cholecystectomy: No Lung Surgery: No Neurologic Surgery: No Orthopedic Surgery: No - Immunization History Immunization Up to Date: Yes - Psycho/Social/Smoking Cessation Hx Anxiety: No Suicidal Ideation: No Smoking Status: Yes Smoking History: Never smoked Have you smoked in the past 12 months: Yes Number of Cigarettes Smoked Daily: 4 Cigars Per Day: 0 Information on smoking cessation initiated: No 'Breaking Loose' booklet given: 09/08/11 Hx Alcohol Use: No Drug/Substance Use Hx: No Substance Use Type: Alcohol, Cocaine, Marijuana Hx Substance Use Treatment: No <Mikey Busch - Last Filed: 11/03/16 16:32> - Past Medical History Allergies/Adverse Reactions: Allergies Allergy/AdvReac Type Severity Reaction Status Date / Time No Known Allergies Allergy Verified 11/03/16 11:22 Home Medications: Ambulatory Orders Amlodipine Besylate [Norvasc -] 5 mg PO DAILY 07/16/13 Aspirin [ASA -] 81 mg PO DAILY 07/16/13 Carvedilol 6.25 mg PO BID 07/16/13 Furosemide [Lasix -] 20 mg PO DAILY 07/16/13 Amlodipine Besylate [Norvasc -] 5 mg PO DAILY 11/03/16 Colchicine [Colcrys] 0.6 mg PO DAILY 11/03/16 Duloxetine HCl 30 mg PO DAILY 11/03/16 Duloxetine HCl 30 mg PO DAILY 11/03/16 Insulin Degludec [Tresiba Flextouch U-200] 40 unit SQ DAILY 11/03/16 Linagliptin/Metformin HCl [Jentadueto 2.5 mg-500 mg Tab] 1 each PO BID 11/03/16 Losartan/Hydrochlorothiazide [Hyzaar 50-12.5 Tablet] 1 each PO DAILY 11/03/16 Rosuvastatin Calcium [Crestor] 10 mg PO HS 11/03/16 Tamsulosin HCl 0.4 mg PO DAILY 11/03/16 Review of Systems - Review of Systems Comments:: 11/03/16 14:07 "GENERAL/CONSTITUTIONAL: No fever or chills. No weakness. HEAD, EYES, EARS, NOSE AND THROAT: No change in vision. No ear pain or discharge. No sore throat. CARDIOVASCULAR: No chest pain or shortness of breath. RESPIRATORY: No cough, wheezing, or hemoptysis. GASTROINTESTINAL: +Right upper quadrant abdominal pain. No nausea, vomiting, diarrhea or constipation. GENITOURINARY: No dysuria, frequency, or change in urination. MUSCULOSKELETAL: No joint or muscle swelling or pain. No neck or back pain. SKIN: No rash NEUROLOGIC: No headache, vertigo, loss of consciousness, or change in strength/ sensation. ENDOCRINE: No increased thirst. No abnormal weight change. HEMATOLOGIC/LYMPHATIC: No anemia, easy bleeding, or history of blood clots. ALLERGIC/IMMUNOLOGIC: No hives or skin allergy. " <Mikey Busch - Last Filed: 11/03/16 16:32> *Physical Exam - Vital Signs Last Vital Signs Temp Pulse Resp BP Pulse Ox 98.6 F 88 18 130/78 97 11/03/16 11:20 11/03/16 11:20 11/03/16 11:20 11/03/16 11:20 11/03/16 11:20 <Blair James - Last Filed: 11/03/16 15:50> - Vital Signs Last Vital Signs Temp Pulse Resp BP Pulse Ox 98.6 F 88 18 130/78 97 11/03/16 11:20 11/03/16 11:20 11/03/16 11:20 11/03/16 11:20 11/03/16 11:20 - Physical Exam Comments: 11/03/16 14:07 "GENERAL: Awake, alert, and fully oriented, in no acute distress HEAD: No signs of trauma EYES: PERRLA, EOMI, sclera anicteric, conjunctiva clear ENT: Auricles normal inspection, hearing grossly normal, nares patent, oropharynx clear without exudates. Moist mucosa NECK: Normal ROM, supple, no lymphadenopathy, JVD, or masses LUNGS: Breath sounds equal, clear to auscultation bilaterally. No wheezes, and no crackles HEART: Regular rate and rhythm, normal S1 and S2, no murmurs, rubs or gallops ABDOMEN: +Mild right upper quadrant abdominal tenderness. +Abdomen obese. Soft, normoactive bowel sounds. No guarding, no rebound. EXTREMITIES: Normal range of motion, no edema. No clubbing or cyanosis. No cords , erythema, or tenderness NEUROLOGICAL: Cranial nerves II through XII grossly intact. Normal speech, normal gait SKIN: Warm, Dry, normal turgor, no rashes or lesions noted. " <Mikey Busch - Last Filed: 11/03/16 16:32> ED Treatment Course - LABORATORY CBC & Chemistry Diagram: 11/03/16 11:45 11/03/16 11:45 - ADDITIONAL ORDERS Additional order review: Laboratory Results 11/03/16 11/03/16 11/03/16 13:23 12:30 11:45 PT with INR INR PTT (Actin FS) VBG pH 7.37 POC VBG pCO2 50.6 POC VBG pO2 31.0 Mixed VBG HCO3 28.8 H Sodium Potassium Chloride Carbon Dioxide Anion Gap BUN Creatinine Creat Clearance w eGFR Random Glucose Lactic Acid Calcium Total Bilirubin AST ALT Alkaline Phosphatase Creatine Kinase Troponin I Total Protein Albumin Lipase Urine Color Urine Appearance Urine pH Urine Protein Urine Glucose (UA) Urine Ketones Urine Blood Urine Nitrite Urine Bilirubin Urine Urobilinogen Acetone, Qual Trace Blood Type B POSITIVE Antibody Screen Negative 11/03/16 11/03/16 11/03/16 11:45 11:45 11:45 PT with INR 10.90 INR 0.99 PTT (Actin FS) 32.5 VBG pH POC VBG pCO2 POC VBG pO2 Mixed VBG HCO3 Sodium 135 L Potassium 3.5 Chloride 99 Carbon Dioxide 24 Anion Gap 12 BUN 17 D Creatinine 1.1 D Creat Clearance w eGFR > 60 Random Glucose 406 H* D Lactic Acid 2.5 H* Calcium 8.8 Total Bilirubin 0.5 D AST 16 ALT 35 Alkaline Phosphatase 106 D Creatine Kinase Troponin I Total Protein 6.9 Albumin 3.9 Lipase 200 Urine Color Urine Appearance Urine pH Urine Protein Urine Glucose (UA) Urine Ketones Urine Blood Urine Nitrite Urine Bilirubin Urine Urobilinogen Acetone, Qual Blood Type Antibody Screen 11/03/16 11/03/16 11:44 11:44 PT with INR INR PTT (Actin FS) VBG pH POC VBG pCO2 POC VBG pO2 Mixed VBG HCO3 Sodium Potassium Chloride Carbon Dioxide Anion Gap BUN Creatinine Creat Clearance w eGFR Random Glucose Lactic Acid Calcium Total Bilirubin AST ALT Alkaline Phosphatase Creatine Kinase 96 Troponin I 0.02 Total Protein Albumin Lipase Urine Color Straw Urine Appearance Clear Urine pH 6.0 Urine Protein Negative Urine Glucose (UA) 3+ H Urine Ketones Negative Urine Blood Negative Urine Nitrite Negative Urine Bilirubin Negative Urine Urobilinogen Negative Acetone, Qual Blood Type Antibody Screen 11/03/16 11:45 RBC 4.88 MCV 85.4 MCHC 32.8 RDW 15.5 MPV 9.1 Neutrophils % 42.7 L Lymphocytes % 46.2 H Monocytes % 8.1 Eosinophils % 1.9 Basophils % 1.1 - RADIOLOGY Radiograph Interpretation: 11/03/16 14:17 Exam#: Type/Exam [id number] US/Abdomen US -Limited History provided: right upper quadrant pain Real time examination of the abdomen demonstrates the following: The gallblader is normal in size and does contain a small calculus. There is no evidence of intra or extrahepatic biliary duct dilation. The liver is normal in size. It is hyperechoic in texture consistent with diffuse fatty infiltration. No discrete intrahepatic masses are identified. The pancrease is not well visualized due to overlying bowel gas. There is no evidence of hydronenephrosis or acute abnormalities of the right kidney. There is no evidence of AAA. The IVC is patent. Impression: Cholelithiasis and diffuse fatty infilatration of the liver. Report by: Sam Roman MD 11/03/16 1250 11/03/16 14:24 Exam#: Type/Exam [id number] RAD/Abdomen Flat - Upright - Lateral Abdomen: Obstruction. Imaging reveals a large amount of retained stool compatible with mild constipation and some air distended loops of bowels. A gross obstruction or free air is not seen. There are degenerative spine changes with wedging along with vascular calcifications. If symptoms persist, further imaging may be of help. Impression: No sign of a gross obstruction. Reported by: Elton Hurtado MD. - Medications Given in the ED: ED Medications Discontinued Medications Generic Name Dose Route Start Last Admin Trade Name Freq PRN Reason Stop Dose Admin Sodium Chloride 1,000 mls @ 1,000 mls/hr 11/03/16 12:58 11/03/16 13:34 Normal Saline - IV 11/03/16 13:57 1,000 mls/hr ASDIR STA Administration Insulin Human Regular 10 units 11/03/16 13:27 11/03/16 13:40 Novolin R Vial *For Ivpush Or Iv Drip Only* SQ 11/03/16 13:28 10 units ONCE ONE Administration Potassium Chloride 40 meq 11/03/16 13:14 11/03/16 13:49 K-Dur - PO 11/03/16 13:15 40 meq ONCE ONE Administration <Blair James - Last Filed: 11/03/16 15:50> - LABORATORY CBC & Chemistry Diagram: 11/03/16 11:45 11/03/16 11:45 - ADDITIONAL ORDERS Additional order review: Laboratory Results 11/03/16 11/03/16 11/03/16 13:23 12:30 11:45 PT with INR INR PTT (Actin FS) VBG pH 7.37 POC VBG pCO2 50.6 POC VBG pO2 31.0 Mixed VBG HCO3 28.8 H Sodium Potassium Chloride Carbon Dioxide Anion Gap BUN Creatinine Creat Clearance w eGFR Random Glucose Lactic Acid Calcium Total Bilirubin AST ALT Alkaline Phosphatase Creatine Kinase Troponin I Total Protein Albumin Lipase Urine Color Urine Appearance Urine pH Urine Protein Urine Glucose (UA) Urine Ketones Urine Blood Urine Nitrite Urine Bilirubin Urine Urobilinogen Acetone, Qual Trace Blood Type B POSITIVE Antibody Screen Negative 11/03/16 11/03/1611/03/17 11:45 11:45 11:45 PT with INR 10.90 INR 0.99 PTT (Actin FS) 32.5 VBG pH POC VBG pCO2 POC VBG pO2 Mixed VBG HCO3 Sodium 135 L Potassium 3.5 Chloride 99 Carbon Dioxide 24 Anion Gap 12 BUN 17 D Creatinine 1.1 D Creat Clearance w eGFR > 60 Random Glucose 406 H* D Lactic Acid 2.5 H* Calcium 8.8 Total Bilirubin 0.5 D AST 16 ALT 35 Alkaline Phosphatase 106 D Creatine Kinase Troponin I Total Protein 6.9 Albumin 3.9 Lipase 200 Urine Color Urine Appearance Urine pH Urine Protein Urine Glucose (UA) Urine Ketones Urine Blood Urine Nitrite Urine Bilirubin Urine Urobilinogen Acetone, Qual Blood Type Antibody Screen 11/03/16 11/03/16 11:44 11:44 PT with INR INR PTT (Actin FS) VBG pH POC VBG pCO2 POC VBG pO2 Mixed VBG HCO3 Sodium Potassium Chloride Carbon Dioxide Anion Gap BUN Creatinine Creat Clearance w eGFR Random Glucose Lactic Acid Calcium Total Bilirubin AST ALT Alkaline Phosphatase Creatine Kinase 96 Troponin I 0.02 Total Protein Albumin Lipase Urine Color Straw Urine Appearance Clear Urine pH 6.0 Urine Protein Negative Urine Glucose (UA) 3+ H Urine Ketones Negative Urine Blood Negative Urine Nitrite Negative Urine Bilirubin Negative Urine Urobilinogen Negative Acetone, Qual Blood Type Antibody Screen 11/03/16 11:45 RBC 4.88 MCV 85.4 MCHC 32.8 RDW 15.5 MPV 9.1 Neutrophils % 42.7 L Lymphocytes % 46.2 H Monocytes % 8.1 Eosinophils % 1.9 Basophils % 1.1 - RADIOLOGY Radiology Studies Ordered: Category Date Time Status ABDOMEN [id number] [RAD] Stat Radiology 11/03/16 11:32 Completed ABDOMEN US -LIMITED [US] Stat Ultrasound 11/03/16 11:33 Completed - Medications Given in the ED: ED Medications Discontinued Medications Generic Name Dose Route Start Last Admin Trade Name Freq PRN Reason Stop Dose Admin Sodium Chloride 1,000 mls @ 1,000 mls/hr 11/03/16 12:58 11/03/16 13:34 Normal Saline - IV 11/03/16 13:57 1,000 mls/hr ASDIR STA Administration Insulin Human Regular 10 units 11/03/16 13:27 11/03/16 13:40 Novolin R Vial *For Ivpush Or Iv Drip Only* SQ 11/03/16 13:28 10 units ONCE ONE Administration Potassium Chloride 40 meq 11/03/16 13:14 11/03/16 13:49 K-Dur - PO 11/03/16 13:15 40 meq ONCE ONE Administration <Mikey Busch - Last Filed: 11/03/16 16:32> Medical Decision Making - Medical Decision Making 11/03/16 15:[address] Yamil Jeffery 1:37 pm Page returned from Dr. Yamil Jeffery 1:54 pm <Blair James - Last Filed: 11/03/16 15:50> - Medical Decision Making 11/03/16 13:08 66 M with DM, HTN presenting with RUQ pain. Pt with no infectious signs or symptoms, very well appearing. Will r/o gallbladder pathology with RUQ sono. - Labs - RUQ sono 11/03/16 14:08 Pt with elevated blood glucose 400. Pt states that he has been compliant with his insulin and checks his sugars daily, which have been running around 400. Labs with trace ketones, anion gap of 12. Pt with no acidosis, normal AG, making DKA unlikely. Spoke with Dr. Jeffery, pt's PMD, who recommends increasing pt's tresiba by 6 units. He will follow up with patient in clinic on Saturday. 11/03/16 16:29 Pt with improving sugar s/p 2L NS and insulin. Pt reassessed - reports complete resolution of abdominal pain. He now reports that he feels well and is requesting to go home. Pt tolerated PO, eating entire meal tray in ER. Instructed pt to increase insulin per Dr. Jeffery's recommendations and to follow up in clinic on Saturday. <Mikey Busch - Last Filed: 11/03/16 16:32> *DC/Admit/Observation/Transfer - Attestations Scribe Attestion: 11/03/16 14:37 Documentation prepared by Blair James, acting as medical anthropologist for Mikey Busch MD. <Blair James - Last Filed: 11/03/16 15:50> - Attestations Physician Attestion: 11/03/16 16:32 I, Dr. Mikey Busch MD, attest that this document has been prepared under my direction and personally reviewed by me in its entirety. I further attest, that it accurately reflects all work, treatment, procedures and medical decision -making performed by me. <Mikey Busch - Last Filed: 11/03/16 16:32> Diagnosis at time of Disposition: Hyperglycemia - Discharge Dispostion Disposition: HOME Condition at time of disposition: Stable - Referrals Referrals: Yamil Jeffery MD [Primary Care Provider] - - Patient Instructions Printed Discharge Instructions: DI for Hyperglycemia -- Adult Additional Instructions: INCREASE the amount of insulin you're using. Instead of using 40 units of Tresiba, use 46 units every day. AVOID eating high-carb foods, as this will cause your blood sugar to be elevated. Follow up with Dr. Jeffery in clinic on Saturday. If you experience recurrent pain, shortness of breath, lightheadedness, vomiting , or any other concerning symptoms, return to the ER immediately.
[2016-11-03] MEDS ORDERED: INSULIN REGULAR HUMAN 100 UNITS/ML *VIAL IVPUSH ONE (15:21)
[2016-11-03 17:06] VITALS: BP 161/97; PULSE 76
--- NOTE | 2016-11-05 16:41 | EKG ---
Test Reason : Blood Pressure : / mmHG Vent. Rate : 084 BPM Atrial Rate : 084 BPM P-R Int : 182 ms QRS Dur : 122 ms QT Int : 410 ms P-R-T Axes : 058 -49 088 degrees QTc Int : 484 ms NORMAL SINUS RHYTHM LEFT ANTERIOR FASCICULAR BLOCK NONSPECIFIC T WAVE ABNORMALITY ABNORMAL ECG WHEN COMPARED WITH ECG OF 10-AUG-2014 14:46, QT HAS LENGTHENED VENT. RATE HAS INCREASED Confirmed by OPHELIA ESTES, JUNIE ([id number]) on 11/05/2016 4:41:18 PM Referred By: Confirmed By:JUNIE JACINTO MD
== END 2016-11-03 18:18 | disposition home or self-care (01) ==
LOC: JER 11:08
PROC: 3E0337Z Introduction of Electrolytic and Water Balance Substance into Peripheral Vein, Percutaneous Approach (ICD-10-PCS; principal; 2016-11-03)
PROC: 3E033VG Introduction of Insulin into Peripheral Vein, Percutaneous Approach (ICD-10-PCS; 2016-11-03)
PROC: 3E013VG Introduction of Insulin into Subcutaneous Tissue, Percutaneous Approach (ICD-10-PCS; 2016-11-03)
DX: E11.65 Type 2 diabetes mellitus with hyperglycemia (principal); Z79.4 Long term (current) use of insulin; I10 Essential (primary) hypertension; E78.00 Pure hypercholesterolemia, unspecified
CPT/HCPCS: 36415; 74020-TC; 76705-TC; 80053; 81003; 82009; 82803; 83605; 83690; 84484; 85025; 85610; 85730; 86850; 86900; 86901; 93005; 93010; 96361; 96372; 96374; 99283-25

== ENCOUNTER 2016-12-19 11:08 | Emergency (ER) | payer OTHER ==
[2016-12-19 11:23] VITALS: BMI 31.3
[2016-12-19] MEDS ORDERED: ONDANSETRON 4 MG/2 ML VIAL IVPB ONE (12:26)
[2016-12-19] MEDS ORDERED: morphine CARPU-JECT 4 MG/1 ML DISP.SYRIN IVPUSH ONE (12:26)
[2016-12-19] MEDS ORDERED: PANTOPRAZOLE SODIUM 40 MG in SODIUM CHLORIDE 100 ML IVPB ONE (12:26)
[2016-12-19] MEDS ORDERED: SODIUM CHLORIDE 1,000 ML IV STA (12:26)
--- NOTE | 2016-12-19 12:34 | PDOC ---
History of Present Illness - General Chief Complaint: Pain Stated Complaint: PAIN Time Seen by Provider: 12/19/16 11:58 - History of Present Illness Initial Comments: 12/19/16 12:30 "66 year old male, with significant past medical history of DM and HTN, who presents to the emergency room complaining of 3 weeks of intermittent epigastric pain that has progressively worsened. He describes the pain as sharp and burning that returned this morning. He denies any exacerbating or alleviating factors. Denies nausea, vomiting, diarrhea, fever, chills. He called his PCP and was told to come to the ED. The patient was seen in the ED on 11/03/16 for a similar complaint and had an US that revealed cholithiasis w/o cholecystitis. He notes that he visited Dr. Jeffery for a diabetes follow up in the office yesterday, but did not tell him about the epigastric pain because he was not experiencing it at that time. Allergies: NKA PMD: Dr. Yamil Jeffery " Past History - Past Medical History Allergies/Adverse Reactions: Allergies Allergy/AdvReac Type Severity Reaction Status Date / Time No Known Allergies Allergy Verified 12/19/16 11:23 Home Medications: Ambulatory Orders Aspirin [ASA -] 81 mg PO DAILY 07/16/13 Carvedilol 6.25 mg PO BID 07/16/13 Furosemide [Lasix -] 20 mg PO DAILY 07/16/13 Amlodipine Besylate [Norvasc -] 5 mg PO DAILY 11/03/16 Colchicine [Colcrys] 0.6 mg PO DAILY 11/03/16 Duloxetine HCl 30 mg PO DAILY 11/03/16 Insulin Degludec [Tresiba Flextouch U-200] 40 unit SQ DAILY 11/03/16 Linagliptin/Metformin HCl [Jentadueto 2.5 mg-500 mg Tab] 1 each PO BID 11/03/16 Losartan/Hydrochlorothiazide [Hyzaar 50-12.5 Tablet] 1 each PO DAILY 11/03/16 Rosuvastatin Calcium [Crestor] 10 mg PO HS 11/03/16 Tamsulosin HCl 0.4 mg PO DAILY 11/03/16 Linaclotide [Linzess] 72 mcg PO ASDIR 12/19/16 Pregabalin [Lyrica -] 50 mg PO HS 12/19/16 Anemia: No Asthma: No Cancer: No Cardiac Disorders: Yes CVA: No COPD: No CHF: No DVT: No Dementia: No Diabetes: Yes Dialysis: No GI Disorders: No Disorders: No HTN: Yes Hypercholesterolemia: Yes Liver Disease: No Seizures: No Thyroid Disease: No - Surgical History Abdominal Surgery: No Appendectomy: No Cardiac Surgery: Yes (CARDIAC STENT) Cholecystectomy: No Lung Surgery: No Neurologic Surgery: No Orthopedic Surgery: No - Immunization History Immunization Up to Date: Yes - Suicide/Smoking/Psychosocial Hx Smoking Status: Yes Smoking History: Never smoked Have you smoked in the past 12 months: Yes Number of Cigarettes Smoked Daily: 4 Cigars Per Day: 0 'Breaking Loose' booklet given: 09/08/11 Hx Alcohol Use: No Drug/Substance Use Hx: No Substance Use Type: None Hx Substance Use Treatment: No Abd/GI Specific PMHX - Complaint Specific PMHX GERD: No GI Ulcer Disease: No Review of Systems - Review of Systems Comments:: 12/19/16 12:31 "GENERAL/CONSTITUTIONAL: No fever or chills. No weakness. HEAD, EYES, EARS, NOSE AND THROAT: No change in vision. No ear pain or discharge. No sore throat. CARDIOVASCULAR: No chest pain or shortness of breath. RESPIRATORY: No cough, wheezing, or hemoptysis. GASTROINTESTINAL: +epigastric pain. No nausea, vomiting, diarrhea or constipation. GENITOURINARY: No dysuria, frequency, or change in urination. MUSCULOSKELETAL: No joint or muscle swelling or pain. No neck or back pain. SKIN: No rash NEUROLOGIC: No headache, vertigo, loss of consciousness, or change in strength/ sensation. ENDOCRINE: No increased thirst. No abnormal weight change. HEMATOLOGIC/LYMPHATIC: No anemia, easy bleeding, or history of blood clots. ALLERGIC/IMMUNOLOGIC: No hives or skin allergy. " *Physical Exam - Vital Signs Last Vital Signs Temp Pulse Resp BP Pulse Ox 98.0 F 90 20 130/98 100 12/19/16 11:20 12/19/16 11:20 12/19/16 11:20 12/19/16 11:20 12/19/16 11:20 - Physical Exam Comments: 12/19/16 12:31 "GENERAL: Awake, alert, and fully oriented, in no acute distress HEAD: No signs of trauma EYES: PERRLA, EOMI, sclera anicteric, conjunctiva clear ENT: Auricles normal inspection, hearing grossly normal, nares patent, oropharynx clear without exudates. Moist mucosa NECK: Nontender, no stepoffs, Normal ROM, supple, no lymphadenopathy, JVD, or masses LUNGS: Breath sounds equal, clear to auscultation bilaterally. No wheezes, and no crackles HEART: Regular rate and rhythm, normal S1 and S2, no murmurs, rubs or gallops ABDOMEN: Soft, mild epigastric TTP, normoactive bowel sounds. No guarding, no rebound. No masses EXTREMITIES: Normal range of motion, no edema. No clubbing or cyanosis. No cords , erythema, or tenderness NEUROLOGICAL: Cranial nerves II through XII intact. 5/5 strength and sensation in all extremities, Normal speech, normal gait SKIN: Warm, Dry, normal turgor, no rashes or lesions noted. " ED Treatment Course - LABORATORY CBC & Chemistry Diagram: 12/19/16 12:40 12/19/16 12:40 - RADIOLOGY Radiology Studies Ordered: Category Date Time Status ABDOMEN US [US] Stat Ultrasound 12/19/16 12:21 Ordered Medical Decision Making - Medical Decision Making 12/19/16 12:31 66 M with DM, HTN presenting with epigastric pain x 3 weeks. Was seen here previously and found to have cholelithiasis. Given intermittent recurrence of pain, pt likely has symptomatic cholelithiasis. Also consider gastritis vs PUD. Will repeat US to r/o cholecystitis. - Labs - RUQ sono - IVF, GI cocktail 12/19/16 17:39 RUQ sono with no gallstones visualized. CTAP obtained which reveals no acute pathology. Pt tolerating PO, pain now resolved. Clinically well appearing, vitals normal, stable for DC. I discussed the physical exam findings, ancillary test results and final diagnoses with the patient. I answered all of the patient's questions. The patient was satisfied with the care received and felt comfortable with the discharge plan and treatment plan. The patient agrees to follow up with the primary care physician within 24-72 hours. *DC/Admit/Observation/Transfer Diagnosis at time of Disposition: Abdominal pain - Discharge Dispostion Disposition: HOME - Referrals Referrals: Yamil Jeffery MD [Primary Care Provider] - Kenji Don MD [Staff Physician] - - Patient Instructions Printed Discharge Instructions: DI for Abdominal Pain-Adult Additional Instructions: Please call the number provided to make an appointment with GI clinic. You will need an endoscopy to further evaluate your abdominal pain. If you experience worsening pain, vomiting, fevers, or any other concerning symptoms, return to the ER immediately. - Attestations Physician Attestion: 12/19/16 17:41 I, Dr. Mikey Busch MD, attest that this document has been prepared under my direction and personally reviewed by me in its entirety. I further attest, that it accurately reflects all work, treatment, procedures and medical decision -making performed by me.
[2016-12-19 12:48] LABS: BASOPHIL 0.8 % (0-2.0); EOSINOPHIL 2.1 % (0-4.5); MCH 28.3 pg (25.7-33.7); MCHC 33.4 g/dl (32.0-35.9); MEAN CELL VOLUME 84.9 fl (80-96); MEAN PLT VOLUME 8.8 fl (7.5-11.1); NEUTROPHILS 49.2 % (42.8-82.8); PLATELET COUNT 171 K/MM3 (134-434); RDW 15.4 % (11.9-15.9); WHITE BLOOD COUNT 7.7 K/mm3 (4.0-10.0)
[2016-12-19] MEDS ORDERED: PANTOPRAZOLE SODIUM 100 ML IVPB ONE (12:55)
[2016-12-19] MEDS ORDERED: ONDANSETRON 4 MG/2 ML VIAL ONE (12:55)
[2016-12-19] MEDS ORDERED: morphine CARPU-JECT 8 MG/1 ML DISP.SYRIN ONE (12:55)
[2016-12-19 13:12] LABS: INR 1.02 (0.82-1.09); PROTHROMBIN TIME (PATIENT) 11.5 SEC (9.98-11.88)
[2016-12-19 13:24] LABS: ANION GAP 7 (8-16); BILIRUBIN,TOTAL 0.5 mg/dL (0.2-1.0); CALCIUM 8.2 mg/dL (8.5-10.1); CO2 28 mmol/L (21-32); CREATININE 1.1 mg/dL (0.7-1.3); GLUCOSE,RANDOM 274 mg/dL (74-106); SGOT/AST 16 U/L (15-37); SGPT/ALT 35 U/L (12-78); TOT PROT 6.8 g/dl (6.4-8.2)
[2016-12-19 13:26] LABS: ALK PHOS 86 U/L (45-117); CPK 113 IU/L (39-308); TROPONIN I 0.03 ng/ml (0.00-0.05)
[2016-12-19 13:36] LABS: URINE APPEARANCE CLEAR; URINE BILIRUBIN NEGATIVE (NEGATIVE); URINE BLOOD 1+ (NEGATIVE); URINE COLOR YELLOW; URINE GLUCOSE (UA) 3+ (NEGATIVE); URINE KETONE NEGATIVE (NEGATIVE); URINE NITRITE NEGATIVE (NEGATIVE); URINE UROBILINOGEN NEGATIVE mg/dL (0.2-1.0)
[2016-12-19 13:37] LABS: URINE PROTEIN 1+ (NEGATIVE)
[2016-12-19 14:21] LABS: URINE MUCUS RARE; URINE RBC 3 /hpf (0-3); URINE WBC 3 /hpf (3-5)
[2016-12-19 18:17] VITALS: BP 141/77; PULSE 82; TEMP 98.7
[2016-12-19 18:29] LABS: URINE LEUK ESTERASE Negative (NEGATIVE)
--- NOTE | 2016-12-20 17:07 | EKG ---
Test Reason : Blood Pressure : / mmHG Vent. Rate : 079 BPM Atrial Rate : 079 BPM P-R Int : 174 ms QRS Dur : 106 ms QT Int : 436 ms P-R-T Axes : 029 -40 128 degrees QTc Int : 499 ms POOR DATA QUALITY, INTERPRETATION MAY BE ADVERSELY AFFECTED SINUS RHYTHM WITH FUSION COMPLEXES LEFT AXIS DEVIATION MINIMAL VOLTAGE CRITERIA FOR LVH, MAY BE NORMAL VARIANT T WAVE ABNORMALITY, CONSIDER LATERAL ISCHEMIA PROLONGED QT ABNORMAL ECG WHEN COMPARED WITH ECG OF 03-NOV-2016 11:57, FUSION COMPLEXES ARE NOW PRESENT Confirmed by MARY LOW MD ([id number]) on 12/20/2016 5:07:02 PM Referred By: Confirmed By:MARY LOW MD
== END 2016-12-19 18:35 | disposition home or self-care (01) ==
LOC: JER 11:08
PROC: 3E033NZ Introduction of Analgesics, Hypnotics, Sedatives into Peripheral Vein, Percutaneous Approach (ICD-10-PCS; principal; 2016-12-19)
PROC: 3E033GC Introduction of Other Therapeutic Substance into Peripheral Vein, Percutaneous Approach (ICD-10-PCS; 2016-12-19)
PROC: 3E0337Z Introduction of Electrolytic and Water Balance Substance into Peripheral Vein, Percutaneous Approach (ICD-10-PCS; 2016-12-19)
DX: R10.9 Unspecified abdominal pain (principal); E11.9 Type 2 diabetes mellitus without complications; I10 Essential (primary) hypertension; Z79.4 Long term (current) use of insulin
CPT/HCPCS: 36415; 74177-TC; 76700-TC; 80053; 81003; 81015; 82550; 83605; 83690; 84484; 85025; 85610; 85730; 86850; 86900; 86901; 93005; 93010; 99284-25

== ENCOUNTER 2017-08-25 09:33 | Emergency (ER) | payer OTHER ==
[2017-08-25 09:45] VITALS: BMI 31.1
--- NOTE | 2017-08-25 09:47 | PDOC ---
History of Present Illness - General Chief Complaint: Chest Pain Stated Complaint: CHEST PAIN Past History - Past Medical History Allergies/Adverse Reactions: Allergies Allergy/AdvReac Type Severity Reaction Status Date / Time No Known Allergies Allergy Verified 12/19/16 11:23 Home Medications: Ambulatory Orders Aspirin [ASA -] 81 mg PO DAILY 07/16/13 Carvedilol 6.25 mg PO BID 07/16/13 Furosemide [Lasix -] 20 mg PO DAILY 07/16/13 Amlodipine Besylate [Norvasc -] 5 mg PO DAILY 11/03/16 Colchicine [Colcrys] 0.6 mg PO DAILY 11/03/16 Duloxetine HCl 30 mg PO DAILY 11/03/16 Insulin Degludec [Tresiba Flextouch U-200] 40 unit SQ DAILY 11/03/16 Linagliptin/Metformin HCl [Jentadueto 2.5 mg-500 mg Tab] 1 each PO BID 11/03/16 Losartan/Hydrochlorothiazide [Hyzaar 50-12.5 Tablet] 1 each PO DAILY 11/03/16 Rosuvastatin Calcium [Crestor] 10 mg PO HS 11/03/16 Tamsulosin HCl 0.4 mg PO DAILY 11/03/16 Linaclotide [Linzess] 72 mcg PO ASDIR 12/19/16 Pregabalin [Lyrica -] 50 mg PO HS 12/19/16 Anemia: No Asthma: No Cancer: No Cardiac Disorders: Yes CVA: No COPD: No CHF: No DVT: No Dementia: No Diabetes: Yes Dialysis: No GI Disorders: No Disorders: No HTN: Yes Hypercholesterolemia: Yes Liver Disease: No Seizures: No Thyroid Disease: No - Surgical History Abdominal Surgery: No Appendectomy: No Cardiac Surgery: Yes (CARDIAC STENT) Cholecystectomy: No Lung Surgery: No Neurologic Surgery: No Orthopedic Surgery: No - Immunization History Immunization Up to Date: Yes - Suicide/Smoking/Psychosocial Hx Smoking Status: Yes Smoking History: Current every day smoker Have you smoked in the past 12 months: Yes Number of Cigarettes Smoked Daily: 5 Cigars Per Day: 0 Information on smoking cessation initiated: No 'Breaking Loose' booklet given: 09/08/11 Hx Alcohol Use: No Drug/Substance Use Hx: No Substance Use Type: None Hx Substance Use Treatment: No *Physical Exam - Vital Signs Last Vital Signs Temp Pulse Resp BP Pulse Ox 97.9 F 80 20 110/84 99 07/08/18 09:43 08/25/17 09:43 08/25/17 09:43 08/25/17 09:43 08/25/17 09:43
--- NOTE | 2017-08-25 09:48 | PDOC ---
Attending Attestation - HPI HPI: 08/25/17 10:37 The patient is 67 year old male with past medical history of hypertension, IDDM , s/p CVA with residual left arm numbness, BIBA from intermediate for complaints of chest pain. The patient reports a fluctuating mild left lower anterior chest pain that is non-radiating and not accompanied by any shortness of breath, palpitations, diaphoresis, weakness, headache, LOC, or other neurological deficits. He reports that the onset began after he was sleeping on his left side and that pressing onto his left chest makes it worse. He reports the pain was relieved after taking advil. Denies any fevers, chills, or urinary complaints. - Physicial Exam PE: 08/25/17 10:37 GENERAL: Awake, alert, and fully oriented, in no acute distress HEAD: No signs of trauma EYES: PERRLA, EOMI, sclera anicteric, conjunctiva clear ENT: Auricles normal inspection, hearing grossly normal, nares patent, oropharynx clear without exudates. Moist mucosa NECK: Normal ROM, supple, no lymphadenopathy, JVD, or masses LUNGS: Breath sounds equal, clear to auscultation bilaterally. No wheezes, and no crackles HEART:(+) Left anterior chest wall tenderness that reproduces his pain. Regular rate and rhythm, normal S1 and S2, no murmurs, rubs or gallops ABDOMEN: Soft, nontender, normoactive bowel sounds. No guarding, no rebound. No masses EXTREMITIES: Normal range of motion, no edema. No clubbing or cyanosis. No cords, erythema, or tenderness NEUROLOGICAL: Cranial nerves II through XII grossly intact. Normal speech, normal gait SKIN: Warm, Dry, normal turgor, no rashes - Medical Decision Making 08/25/17 10:38 Documentation prepared by Ruthie Zaldivar, acting as back office medical assistant for Radha Schultz DO. <Ruthie Zaldivar - Last Filed: 08/25/17 10:50> - Resident Resident Name: Lucita Andrade - ED Attending Attestation I have performed the following: I have examined & evaluated the patient, The case was reviewed & discussed with the resident, I agree w/resident's findings & plan, Exceptions are as noted - Medical Decision Making 08/25/17 09:48 I, Dr. Radha Kurkowski, DO, attest that this document has been prepared under my direction and personally reviewed by me in its entirety. I further attest, that it accurately reflects all work, treatment, procedures and medical decision -making performed by me. 08/25/17 15:07 a/p: 67yo male with anterior chest wall pain -no radiation -pain resolved after advil at home -pt without pain upon arrival in the ED -pt in nad -atypical cp -will send labs, ekg -will monitor and reassess 08/25/17 15:09 repeat trop negative stable for d/c back to intermediate <Radha Schultz - Last Filed: 08/25/17 15:09> Heart Score/ECG Review - ECG Intrepretation Comment:: 08/25/17 10:06 sinus at 83, L axis, interventricular conduction delay, t wave inversions I, abnl ekg but unchanged from 12/19/16 <Radha Schultz - Last Filed: 08/25/17 15:09>
--- NOTE | 2017-08-25 09:57 | PDOC ---
History of Present Illness - General Chief Complaint: Chest Pain Stated Complaint: CHEST PAIN Time Seen by Provider: 08/25/17 09:47 History Source: Patient, EMS Exam Limitations: No Limitations - History of Present Illness Initial Comments: 08/25/17 09:59 This is a 67 YOM with h/o IDDM, HTN, HLD, and prior CVA (residual LUE numbness) who p/w left lower chest pain fluctuating for the past two days, acutely worsened earlier this morning but resolved by the time he arrived by ambulance to our ED. The patient denies any pain radiation or associated SOB, sweats, nausea, lightheadedness/dizziness, palpitations, abdominal pain, or other symptoms. He took Advil for his symptoms this morning. He denies recent fever, chills, vomiting, diarrhea, constipation, leg pain, new numbness/tingling/focal weakness, or other symptoms. He has had many prior episodes of similar pain but denies any heart problems. He saw his PCP 4 days ago and had his blood glucose checked to be in the 300s, and he does not check it at home but notes that he takes all of his medications as prescribed. Past History - Past Medical History Allergies/Adverse Reactions: Allergies Allergy/AdvReac Type Severity Reaction Status Date / Time No Known Allergies Allergy Verified 12/19/16 11:23 Home Medications: Ambulatory Orders Aspirin [ASA -] 81 mg PO DAILY 07/16/13 Carvedilol 6.25 mg PO BID 07/16/13 Furosemide [Lasix -] 20 mg PO DAILY 07/16/13 Amlodipine Besylate [Norvasc -] 5 mg PO DAILY 11/03/16 Colchicine [Colcrys] 0.6 mg PO DAILY 11/03/16 Duloxetine HCl 30 mg PO DAILY 11/03/16 Insulin Degludec [Tresiba Flextouch U-200] 40 unit SQ DAILY 11/03/16 Linagliptin/Metformin HCl [Jentadueto 2.5 mg-500 mg Tab] 1 each PO BID 11/03/16 Losartan/Hydrochlorothiazide [Hyzaar 50-12.5 Tablet] 1 each PO DAILY 11/03/16 Rosuvastatin Calcium [Crestor] 10 mg PO HS 11/03/16 Tamsulosin HCl 0.4 mg PO DAILY 11/03/16 Linaclotide [Linzess] 72 mcg PO ASDIR 12/19/16 Pregabalin [Lyrica -] 50 mg PO HS 12/19/16 Anemia: No Asthma: No Cancer: No Cardiac Disorders: Yes CVA: No COPD: No CHF: No DVT: No Dementia: No Diabetes: Yes Dialysis: No GI Disorders: No Disorders: No HTN: Yes Hypercholesterolemia: Yes Liver Disease: No Seizures: No Thyroid Disease: No - Surgical History Abdominal Surgery: No Appendectomy: No Cardiac Surgery: Yes (CARDIAC STENT) Cholecystectomy: No Lung Surgery: No Neurologic Surgery: No Orthopedic Surgery: No - Immunization History Immunization Up to Date: Yes - Suicide/Smoking/Psychosocial Hx Smoking Status: Yes Smoking History: Current every day smoker Have you smoked in the past 12 months: Yes Number of Cigarettes Smoked Daily: 5 Cigars Per Day: 0 Information on smoking cessation initiated: No 'Breaking Loose' booklet given: 09/08/11 Hx Alcohol Use: No Drug/Substance Use Hx: No Substance Use Type: None Hx Substance Use Treatment: No Cardiac Specific PMH - Complaint Specific PMHX Angina: No Cardiac Arrhythmia: No GERD: No Pacemaker: No Peripheral Vascular Disease: No Review of Systems - Review of Systems Able to Perform ROS?: Yes Constitutional: No: Chills, Fever, Unexplained wgt Loss HEENTM: No: Nose Congestion, Throat Pain Respiratory: No: Cough, Shortness of Breath Cardiac (ROS): Yes: Chest Pain. No: Palpitations ABD/GI: No: Constipated, Diarrhea, Nausea, Vomiting : No: Burning, Dysuria Musculoskeletal: No: Back Pain, Neck Pain Integumentary: No: Bruising, Rash Neurological: No: Headache, Numbness, Tingling, Weakness, Dizziness Endocrine: No: Unexplained Weight Gain, Unexplained Weight Loss *Physical Exam - Vital Signs Last Vital Signs Temp Pulse Resp BP Pulse Ox 98.1 F 72 18 122/72 98 08/25/17 15:05 08/25/17 15:05 08/25/17 15:05 08/25/17 15:05 08/25/17 15:05 - Physical Exam General Appearance: Yes: Nourished, Appropriately Dressed, Other (Well appearing and nontoxic adult male, answers appropriately). No: Apparent Distress HEENT: positive: EOMI, ZOEY, Normal ENT Inspection, Normal Voice, Hearing Grossly Normal. negative: Scleral Icterus (R), Scleral Icterus (L), Nasal Congestion Neck: positive: Trachea midline, Supple. negative: Tender, Rigid Respiratory/Chest: positive: Lungs Clear, Normal Breath Sounds. negative: Respiratory Distress, Crackles, Rhonchi, Stridor, Wheezing Cardiovascular: positive: Regular Rhythm, Regular Rate, S1, S2. negative: Edema , JVD, Murmur Gastrointestinal/Abdominal: positive: Normal Bowel Sounds, Soft, Protuberent ( but not tight). negative: Tender, Organomegaly, Pulsatile Mass, Guarding Musculoskeletal: positive: Normal Inspection. negative: CVA Tenderness, Decreased Range of Motion, Vertebral Tenderness Extremity: positive: Normal Capillary Refill, Normal Inspection, Normal Range of Motion. negative: Tender, Cyanosis Integumentary: positive: Normal Color, Dry, Warm, Other (vitiligo noted LLE). negative: Erythema, Rash, Bruising Neurologic: positive: music educator II-XII NML intact (grossly), Fully Oriented, Alert, Normal Mood/Affect, Normal Response, Motor Strength 5/5. negative: Facial Droop , Sensory Deficit, Confused, Disoriented Heart Score/ECG Review - History History: Slightly suspicious - Electrocardiogram EKG: Normal - Age Age: >/= 65 - Risk Factors Risk Factors Heart Score: Yes Hx Hypercholesterolemia, Yes Hx Hypertension, Yes Hx Diabetes Based on the list above the patient has:: >/=3 risk factors or Hx atherosclerotic disease - Troponin Troponin: </= normal limit - Score Heart Score - Total: 4 #1 Sinus rhythm, rate of 83, T-wave inversions in I and aVL which are old, poor R wave progression, no other new changes ED Treatment Course - LABORATORY CBC & Chemistry Diagram: 08/25/17 10:19 08/25/17 10:19 - ADDITIONAL ORDERS Additional order review: Laboratory Results 08/25/17 08/25/17 08/25/17 14:00 10:19 10:19 Sodium 140 Potassium 4.3 Chloride 103 Carbon Dioxide 30 Anion Gap 7 L BUN 21 H Creatinine 1.1 Creat Clearance w eGFR > 60 Random Glucose 117 H D Calcium 9.1 Total Bilirubin 0.9 AST 28 D ALT 35 Alkaline Phosphatase 72 Creatine Kinase 96 120 Troponin I 0.02 < 0.02 D Total Protein 7.7 Albumin 4.3 Lipase Cancelled 304 08/25/17 10:01 Sodium Potassium Chloride Carbon Dioxide Anion Gap BUN Creatinine Creat Clearance w eGFR Random Glucose Calcium Total Bilirubin AST ALT Alkaline Phosphatase Creatine Kinase Cancelled Troponin I Cancelled Total Protein Albumin Lipase 08/25/17 10:19 RBC 4.85 MCV 87.7 MCHC 33.0 RDW 15.4 MPV 9.2 Neutrophils % 60.4 D Lymphocytes % 30.9 D Monocytes % 5.8 Eosinophils % 1.9 Basophils % 1.0 - RADIOLOGY Radiology Studies Ordered: Category Date Time Status CXRPORT [CHEST X-RAY PORTABLE*] [RAD] Stat Radiology 08/25/17 09:58 Completed - Medications Given in the ED: ED Medications Discontinued Medications Generic Name Dose Route Start Last Admin Trade Name Freq PRN Reason Stop Dose Admin Aspirin 324 mg 08/25/17 10:07 08/25/17 10:30 Asa - PO 08/25/17 10:08 324 mg ONCE ONE Administration Sodium Chloride 1,000 ml 08/25/17 10:07 08/25/17 10:51 Normal Saline - IV 08/25/17 10:08 Not Given ONCE ONE Medical Decision Making - Medical Decision Making 08/25/17 10:06 Adult male Pt with h/o IDDM, HTN, HLD, CVA p/w chest pain. Initial Vital Signs Temp Pulse Resp BP Pulse Ox 97.9 F 80 20 110/84 99 08/25/17 09:43 08/25/17 09:43 08/25/17 09:43 08/25/17 09:43 08/25/17 09:43 Exam: Results as noted in Physical Exam section. DDX IBNLT: musculoskeletal, ACS, pericarditis, tamponade, aortic dissection, AAA , PTX, PE, esophageal tear, esophagitis (e.g. pill, infectious), esophageal stricture, esophageal FB, gastritis, PUD, pancreatitis, cholecystitis, cholangitis, colitis, bowel perforation, PNA/bronchitis, pleurisy, pleuritis, MVP, pulmonary HTN, panic/anxiety, etc. W/U ordered: CBCD CMP Lipase Troponin CK CKMB UA UCx EKG CXR. TX ordered: full dose ASA EKG: Reviewed; results as noted in ECG Review section. CXR: nothing acute; cardiomegaly Laboratory Tests 08/25/17 08/25/17 08/25/17 10:01 10:19 10:19 WBC 9.2 RBC 4.85 Hgb 14.0 Hct 42.5 MCV 87.7 MCH 29.0 MCHC 33.0 RDW 15.4 Plt Count 223 D MPV 9.2 Absolute Neuts (auto) 5.6 Neutrophils % 60.4 D Lymphocytes % 30.9 D Monocytes % 5.8 Eosinophils % 1.9 Basophils % 1.0 Nucleated RBC % 0 Sodium 140 Potassium 4.3 Chloride 103 Carbon Dioxide 30 Anion Gap 7 L BUN 21 H Creatinine 1.1 Creat Clearance w eGFR > 60 Random Glucose 117 H D Calcium 9.1 Total Bilirubin 0.9 AST 28 D ALT 35 Alkaline Phosphatase 72 Creatine Kinase Cancelled 120 Troponin I Cancelled < 0.02 D Total Protein 7.7 Albumin 4.3 Lipase 304 08/25/17 08/25/17 10:19 14:00 WBC RBC Hgb Hct MCV MCH MCHC RDW Plt Count MPV Absolute Neuts (auto) Neutrophils % Lymphocytes % Monocytes % Eosinophils % Basophils % Nucleated RBC % Sodium Potassium Chloride Carbon Dioxide Anion Gap BUN Creatinine Creat Clearance w eGFR Random Glucose Calcium Total Bilirubin AST ALT Alkaline Phosphatase Creatine Kinase 96 Troponin I 0.02 Total Protein Albumin Lipase Cancelled Reassessment: Patient feels comfortable going home, no residual pain, no complaints. Vital Signs Temperature 98.1 F 08/25/17 15:05 Pulse Rate 72 08/25/17 15:05 Respiratory Rate 18 08/25/17 15:05 Blood Pressure 122/72 08/25/17 15:05 O2 Sat by Pulse Oximetry (%) 98 08/25/17 15:05 DISCHARGE Repeat cardiac enzymes are negative. No new abnormal rhythms have been observed on the manager monitoring. On last reassessment VS are stable, Pts pain is resolved, and exam is benign. The Pts HEART score indicates they are low risk and do not require admission currently. The Pt is appropriate for discharge with close outpatient follow up. They are comfortable with this plan and will follow up with their PCP in 1-3 days. 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 Specific return precautions are discussed and they will come back to the ER if necessary. *DC/Admit/Observation/Transfer Diagnosis at time of Disposition: Chest pain Qualifiers: Chest pain type: unspecified Qualified Code(s): R07.9 - Chest pain, unspecified - Discharge Dispostion Disposition: HOME Condition at time of disposition: Stable Decision to Admit order: No - Referrals Referrals: Matthew Schafer MD [Staff Physician] - - Patient Instructions Printed Discharge Instructions: DI for Chest Pain Additional Instructions: You were seen in the ER for chest pain. We did lab work on your blood and urine , an electrocardiogram, and a chest x-ray, and we did not find any concerning abnormalities. Your symptoms improved before you arrive to the ED, but we still gave you aspirin in the ER. After our assessment, we do not believe you are having a medical emergency at this time, and we believe you are safe to go home. Take over the counter pain medications for your pain, as instructed on the medication label. Please follow up with your regular PCP doctor in 1-3 days. Call their clinic as soon as possible, tell them you were seen in the ER, and tell them you need an appointment. We are also giving you referral information for our on-call assistant professor in family studies and you should follow up with them as well. If you have any new or worsening symptoms, especially worsening chest pain , jaw pain, shoulder/arm pain, shortness of breath, sweats, nausea, loss of consciousness, palpitations, or other symptoms, please come back to the ER at any time (24 hours a day). If you are having severe or life threatening symptoms , or symptoms that make it unsafe to drive or have someone drive you, please call 911. Print Language: GREENLANDIC - Post Discharge Activity
[2017-08-25] MEDS ORDERED: SODIUM CHLORIDE 0.9% 500 ML INFUS.BAG IV ONE (10:07)
[2017-08-25] MEDS ORDERED: ASPIRIN 81 MG CHEWABLE TABLETS PO ONE (10:07)
--- NOTE | 2017-08-25 10:19 | EKG ---
Test Reason : Blood Pressure : / mmHG Vent. Rate : 083 BPM Atrial Rate : 083 BPM P-R Int : 184 ms QRS Dur : 122 ms QT Int : 408 ms P-R-T Axes : 050 -38 080 degrees QTc Int : 479 ms NORMAL SINUS RHYTHM LEFT AXIS DEVIATION NON-SPECIFIC INTRA-VENTRICULAR CONDUCTION DELAY T WAVE ABNORMALITY, CONSIDER LATERAL ISCHEMIA ABNORMAL ECG WHEN COMPARED WITH ECG OF 19-DEC-2016 13:06, FUSION COMPLEXES ARE NO LONGER PRESENT Confirmed by MARY LOW MD ([id number]) on 08/25/2017 10:19:34 AM Referred By: Confirmed By:MARY LOW MD
[2017-08-25] MEDS ORDERED: ASPIRIN 325 MG TABLET ONE (10:22)
[2017-08-25 10:24] LABS: EOS % 1.9 % (0-4.5); HEMATOCRIT 42.5 % (35.4-49); LYMPH % 30.9 % (8-40); MEAN CELL VOLUME 87.7 fl (80-96); MEAN PLT VOLUME 9.2 fl (7.5-11.1); MONO % 5.8 % (3.8-10.2); NEUT % 60.4 % (42.8-82.8); PLATELET COUNT 223 K/MM3 (134-434); RBC 4.85 M/mm3 (4.00-5.60); RDW 15.4 % (11.9-15.9); WHITE BLOOD COUNT 9.2 K/mm3 (4.0-10.0)
[2017-08-25 11:11] LABS: ALBUMIN 4.3 g/dl (3.4-5.0); ALK PHOS 72 U/L (45-117); ANION GAP 7 (8-16); BILIRUBIN,TOTAL 0.9 mg/dL (0.2-1.0); BLOOD UREA NITROGEN 21 mg/dL (7-18); CALCIUM 9.1 mg/dL (8.5-10.1); CHLORIDE 103 mmol/L (98-107); CO2 30 mmol/L (21-32); CREATININE 1.1 mg/dL (0.7-1.3); GLUCOSE,RANDOM 117 mg/dL (74-106); SGPT/ALT 35 U/L (12-78); SODIUM 140 mmol/L (136-145); TOT PROT 7.7 g/dl (6.4-8.2)
[2017-08-25 11:15] LABS: POTASSIUM 4.3 mmol/L (3.5-5.1); SGOT/AST 28 U/L (15-37)
[2017-08-25 12:30] LABS: LIPASE 304 U/L (73-393)
[2017-08-25 15:18] VITALS: BP 122/72; PULSE 72; TEMP 98.1
== END 2017-08-25 15:19 | disposition home or self-care (01) ==
LOC: JER 09:33
DX: R07.9 Chest pain, unspecified (principal); I25.10 Atherosclerotic heart disease of native coronary artery without angina pectoris; I10 Essential (primary) hypertension; Z95.5 Presence of coronary angioplasty implant and graft; E11.9 Type 2 diabetes mellitus without complications; Z79.84 Long term (current) use of oral hypoglycemic drugs; I69.854 Hemiplegia and hemiparesis following other cerebrovascular disease affecting left non-dominant side
CPT/HCPCS: 36415; 71045-TC-FY; 80053; 82550; 83690; 84484; 85025; 93005; 93010; 99285-25

== ENCOUNTER 2018-03-14 12:30 | Emergency (ER) | payer OTHER ==
[2018-03-14 12:39] VITALS: BP 139/87; PULSE 88; TEMP 98; BMI 28.2
--- NOTE | 2018-03-14 12:42 | PDOC ---
History of Present Illness - General Chief Complaint: Pain Stated Complaint: PAIN Time Seen by Provider: 03/14/18 12:41 History Source: Patient Past History - Past Medical History Allergies/Adverse Reactions: Allergies Allergy/AdvReac Type Severity Reaction Status Date / Time No Known Allergies Allergy Verified 03/14/18 12:33 Home Medications: Ambulatory Orders Aspirin [ASA -] 81 mg PO DAILY 07/16/13 Carvedilol 6.25 mg PO BID 07/16/13 Furosemide [Lasix -] 20 mg PO DAILY 07/16/13 Amlodipine Besylate [Norvasc -] 5 mg PO DAILY 11/03/16 Colchicine [Colcrys] 0.6 mg PO DAILY 11/03/16 Duloxetine HCl 30 mg PO DAILY 11/03/16 Insulin Degludec [Tresiba Flextouch U-200] 40 unit SQ DAILY 11/03/16 Linagliptin/Metformin HCl [Jentadueto 2.5 mg-500 mg Tab] 1 each PO BID 11/03/16 Losartan/Hydrochlorothiazide [Hyzaar 50-12.5 Tablet] 1 each PO DAILY 11/03/16 Rosuvastatin Calcium [Crestor] 10 mg PO HS 11/03/16 Tamsulosin HCl 0.4 mg PO DAILY 11/03/16 Linaclotide [Linzess] 72 mcg PO ASDIR 12/19/16 Pregabalin [Lyrica -] 50 mg PO HS 12/19/16 Anemia: No Asthma: No Cancer: No Cardiac Disorders: Yes CVA: No COPD: No CHF: No DVT: No Dementia: No Diabetes: Yes Dialysis: No GI Disorders: No Disorders: No HTN: Yes Hypercholesterolemia: Yes Liver Disease: No Seizures: No Thyroid Disease: No - Surgical History Abdominal Surgery: No Appendectomy: No Cardiac Surgery: Yes (CARDIAC STENT) Cholecystectomy: No Lung Surgery: No Neurologic Surgery: No Orthopedic Surgery: No - Immunization History Immunization Up to Date: Yes - Suicide/Smoking/Psychosocial Hx Smoking Status: Yes Smoking History: Current some day smoker Have you smoked in the past 12 months: Yes Number of Cigarettes Smoked Daily: 5 Cigars Per Day: 0 Information on smoking cessation initiated: Yes 'Breaking Loose' booklet given: 09/08/11 Hx Alcohol Use: Yes (1 or 2 a day) Drug/Substance Use Hx: No Substance Use Type: None Hx Substance Use Treatment: No Trauma Specific PMHX - Complaint Specific PMHX Arthritis: No *Physical Exam - Vital Signs Last Vital Signs Temp Pulse Resp BP Pulse Ox 98 F 88 16 139/87 99 03/14/18 12:33 03/14/18 12:33 03/14/18 12:33 03/14/18 12:33 03/14/18 12:33 Moderate Sedation - Procedure Monitoring Vital Signs: Procedure Monitoring Vital Signs Temperature 98 F 03/14/18 12:33 Pulse Rate 88 03/14/18 12:33 Respiratory Rate 16 03/14/18 12:33 Blood Pressure 139/87 03/14/18 12:33 O2 Sat by Pulse Oximetry (%) 99 03/14/18 12:33 ED Treatment Course - RADIOLOGY Radiology Studies Ordered: Category Date Time Status CHEST PA & LAT [RAD] Stat Radiology 03/14/18 12:42 Ordered RIBS BILATERAL [RAD] Stat Radiology 03/14/18 12:42 Ordered
--- NOTE | 2018-03-14 13:15 | PDOC ---
History of Present Illness - General Chief Complaint: Pain Stated Complaint: PAIN Time Seen by Provider: 03/14/18 12:41 History Source: Patient Exam Limitations: Clinical Condition - History of Present Illness Initial Comments: 03/14/18 13:41 Patient with history of hypertension, hyperlipidemia and insulin-dependent diabetes present with complaint of right rib pain status post slip while trying to grab his walker and falling on the walker last night. Patient report pain to right lower ribs which is worse with deep breathing and movement. Patient did not take anything for pain. Patient denies dizziness or loss of consciousness. Timing/Duration: 24 hours Past History - Past Medical History Allergies/Adverse Reactions: Allergies Allergy/AdvReac Type Severity Reaction Status Date / Time No Known Allergies Allergy Verified 03/14/18 12:33 Home Medications: Ambulatory Orders Aspirin [ASA -] 81 mg PO DAILY 07/16/13 Carvedilol 6.25 mg PO BID 07/16/13 Furosemide [Lasix -] 20 mg PO DAILY 07/16/13 Amlodipine Besylate [Norvasc -] 5 mg PO DAILY 11/03/16 Colchicine [Colcrys] 0.6 mg PO DAILY 11/03/16 Duloxetine HCl 30 mg PO DAILY 11/03/16 Insulin Degludec [Tresiba Flextouch U-200] 40 unit SQ DAILY 11/03/16 Linagliptin/Metformin HCl [Jentadueto 2.5 mg-500 mg Tab] 1 each PO BID 11/03/16 Losartan/Hydrochlorothiazide [Hyzaar 50-12.5 Tablet] 1 each PO DAILY 11/03/16 Rosuvastatin Calcium [Crestor] 10 mg PO HS 11/03/16 Tamsulosin HCl 0.4 mg PO DAILY 11/03/16 Linaclotide [Linzess] 72 mcg PO ASDIR 12/19/16 Pregabalin [Lyrica -] 50 mg PO HS 12/19/16 Methocarbamol [Robaxin -] 500 mg PO BID PRN #14 tablet 03/14/18 Naproxen 375 mg PO BID PRN #20 tablet 03/14/18 Anemia: No Asthma: No Cancer: No Cardiac Disorders: Yes CVA: No COPD: No CHF: No DVT: No Dementia: No Diabetes: Yes Dialysis: No GI Disorders: No Disorders: No HTN: Yes Hypercholesterolemia: Yes Liver Disease: No Seizures: No Thyroid Disease: No - Surgical History Abdominal Surgery: No Appendectomy: No Cardiac Surgery: Yes (CARDIAC STENT) Cholecystectomy: No Lung Surgery: No Neurologic Surgery: No Orthopedic Surgery: No - Immunization History Immunization Up to Date: Yes - Suicide/Smoking/Psychosocial Hx Smoking Status: Yes Smoking History: Current some day smoker Have you smoked in the past 12 months: Yes Number of Cigarettes Smoked Daily: 5 Cigars Per Day: 0 Information on smoking cessation initiated: Yes 'Breaking Loose' booklet given: 09/08/11 Hx Alcohol Use: Yes (1 or 2 a day) Drug/Substance Use Hx: No Substance Use Type: None Hx Substance Use Treatment: No Review of Systems - Review of Systems Able to Perform ROS?: Yes Is the patient limited Romanian proficient: No Constitutional: No: Weakness HEENTM: No: Blurred Vision, Recent change in vision, Double Vision Respiratory: No: Symptoms reported, Orthopnea, Shortness of Breath, SOB with Exertion, SOB at Rest, Stridor Cardiac (ROS): No: Symptoms Reported, Chest Pain, Lightheadedness ABD/GI: No: Nausea, Vomiting Musculoskeletal: Yes: See HPI, Muscle Pain (right lower ribs). No: Muscle Weakness All Other Systems: Reviewed and Negative *Physical Exam - Vital Signs Last Vital Signs Temp Pulse Resp BP Pulse Ox 98 F 88 16 139/87 99 03/14/18 12:33 03/14/18 12:33 03/14/18 12:33 03/14/18 12:33 03/14/18 12:33 - Physical Exam Comments: 03/14/18 13:43 GENERAL: Well developed, well nourished. Awake and alert. Morbid obese in mild acute distress. CARDIOVASCULAR: Regular rate and rhythm. No murmurs, rubs, or gallops. PULMONARY: No evidence of respiratory distress. Lungs clear to auscultation bilaterally. No wheezing, rales or rhonchi. ABDOMINAL: Soft. Non-tender. Non-distended. No rebound or guarding. No organomegaly. Normoactive bowel sounds MUSCULOSKELETAL :moderate point tenderness over lateral aspect of 10th-12th right thoracic ribs . No bruising or ecchymosis to skin. No bony deformities SKIN: Warm and dry. Normal capillary refill. no Bruising or ecchymosis to chest wall or ribs. NEUROLOGICAL: Alert, awake, appropriate. No motor deficits in the lower extremities. ambulating with walker PSYCHIATRIC: Cooperative. Good eye contact. Appropriate mood and affect. General Appearance: Yes: Nourished, Appropriately Dressed, Mild Distress Moderate Sedation - Procedure Monitoring Vital Signs: Procedure Monitoring Vital Signs Temperature 98 F 03/14/18 12:33 Pulse Rate 88 03/14/18 12:33 Respiratory Rate 16 03/14/18 12:33 Blood Pressure 139/87 03/14/18 12:33 O2 Sat by Pulse Oximetry (%) 99 03/14/18 12:33 Medical Decision Making - Medical Decision Making 03/14/18 13:46 Patient with history of insulin-dependent diabetes, hypertension and hyperlipidemia and morbid obesity present with complaint of right-sided rib pain to lower side status post slip and fall yesterday on a walker. Exam significant for moderate tenderness over lateral side of 10th to 12th right lower ribs. No ecchymosis or bruising to skin of ribs. X-ray of chest and rib series showed no acute fracture or pathology. Symptoms likely contusion. Toradol 60 mg IM given for pain. Patient is stable for discharge on NSAIDs and muscle relaxer with advised to apply heat compresses to area and PCP follow-up as needed. *DC/Admit/Observation/Transfer Diagnosis at time of Disposition: Contusion of rib on right side Qualifiers: Encounter type: initial encounter Qualified Code(s): S20.211A - Contusion of right front wall of thorax, initial encounter - Discharge Dispostion Disposition: HOME Condition at time of disposition: Stable Decision to Admit order: No - Prescriptions Prescriptions: Methocarbamol [Robaxin -] 500 mg PO BID PRN #14 tablet PRN Reason: ribs pain Naproxen 375 mg PO BID PRN #20 tablet PRN Reason: ribs pain - Referrals Referrals: Yamil Jeffery MD [Primary Care Provider] - - Patient Instructions Printed Discharge Instructions: DI for Rib Contusion Additional Instructions: Your x-ray shows no rib fracture. Take medication as prescribed as needed for pain. Apply heat to right rib area 2-3 times a day for 5-10 minutes as needed for pain. Follow-up with primary care as needed - Post Discharge Activity
[2018-03-14] MEDS ORDERED: KETOROLAC TROMETHAMINE 60 MG/2 ML VIAL IM ONE (13:32)
[2018-03-14] MEDS ORDERED: KETOROLAC TROMETHAMINE 60 MG/2 ML VIAL ONE (13:34)
== END 2018-03-14 13:45 | disposition home or self-care (01) ==
LOC: JERFT 12:30
PROC: 3E0233Z Introduction of Anti-inflammatory into Muscle, Percutaneous Approach (ICD-10-PCS; principal; 2018-03-14)
DX: S20.211A Contusion of right front wall of thorax, initial encounter (principal); W01.0XXA Fall on same level from slipping, tripping and stumbling without subsequent striking against object, initial encounter; Y93.01 Activity, walking, marching and hiking; Y92.038 Other place in apartment as the place of occurrence of the external cause; Y99.8 Other external cause status; I25.10 Atherosclerotic heart disease of native coronary artery without angina pectoris; I10 Essential (primary) hypertension; Z95.5 Presence of coronary angioplasty implant and graft; E11.9 Type 2 diabetes mellitus without complications; Z79.4 Long term (current) use of insulin; E78.00 Pure hypercholesterolemia, unspecified; F17.200 Nicotine dependence, unspecified, uncomplicated
CPT/HCPCS: 71046-TC-FY; 71111-TC-FY; 96372; 99281-25

== ENCOUNTER 2019-01-24 10:24 | Inpatient (IN) | payer OTHER ==
--- NOTE | 2019-01-24 10:35 | PDOC ---
History of Present Illness - General Chief Complaint: Shortness of Breath Stated Complaint: SOB Time Seen by Provider: 01/24/19 10:34 History Source: Patient Exam Limitations: No Limitations - History of Present Illness Initial Comments: 01/24/19 10:34 Yamil Luong is a 68M with PMH CHF, HTN, HLD, IDDM, COPD not on home oxygen or meds, presenting with SOB and weakness. Patient reports a week of weakness, and dyspnea at rest that is worsening over last night and today. Has known history of CHF and COPD, has been taking medications including lasix. Not on home oxygen. Denies fever/chills, N/V/C/D, appetite normal. Denies LE edema, shoes fit fine. Has non-productive cough that is worse than normal. Denies chest pain, palpitations, lightheadedness. Also reports some mild epigastric pain on and off, not at this time, has resolved, not worsened with meals. NKDA Home medications include carvedilol, amlodipine, HCTZ/Losartan. 0.5 ppd smoker Past History - Past Medical History Allergies/Adverse Reactions: Allergies Allergy/AdvReac Type Severity Reaction Status Date / Time No Known Allergies Allergy Verified 01/24/19 14:54 Home Medications: Ambulatory Orders Carvedilol 6.25 mg PO BID 07/16/13 Furosemide [Lasix -] 20 mg PO DAILY 07/16/13 Amlodipine Besylate [Norvasc -] 5 mg PO DAILY 11/03/16 Colchicine [Colcrys] 0.6 mg PO DAILY 11/03/16 Duloxetine HCl 30 mg PO DAILY 11/03/16 Insulin Degludec [Tresiba Flextouch U-200] 40 unit SQ DAILY 11/03/16 Linagliptin/Metformin HCl [Jentadueto 2.5 mg-500 mg Tab] 1 each PO BID 11/03/16 Losartan/Hydrochlorothiazide [Hyzaar 50-12.5 Tablet] 1 each PO DAILY 11/03/16 Rosuvastatin Calcium [Crestor] 10 mg PO HS 11/03/16 Linaclotide [Linzess] 72 mcg PO ASDIR 12/19/16 Anemia: No Asthma: No Cancer: No Cardiac Disorders: Yes CVA: No COPD: No CHF: No DVT: No Dementia: No Diabetes: Yes Dialysis: No GI Disorders: No Disorders: No HTN: Yes Hypercholesterolemia: Yes Liver Disease: No Seizures: No Thyroid Disease: No - Surgical History Abdominal Surgery: No Appendectomy: No Cardiac Surgery: Yes (CARDIAC STENT) Cholecystectomy: No Lung Surgery: No Neurologic Surgery: No Orthopedic Surgery: No - Immunization History Immunization Up to Date: Yes - Psycho Social/Smoking Cessation Hx Smoking Status: Yes Smoking History: Smoker current status UNK Have you smoked in the past 12 months: Yes Number of Cigarettes Smoked Daily: 5 Cigars Per Day: 0 'Breaking Loose' booklet given: 09/08/11 Hx Alcohol Use: Yes (1 or 2 a day) Drug/Substance Use Hx: No Substance Use Type: None Hx Substance Use Treatment: No Review of Systems - Review of Systems Able to Perform ROS?: Yes Constitutional: Yes: Weakness. No: Chills, Fever HEENTM: No: Difficulty Swallowing, Mouth Swelling Respiratory: Yes: Cough, Shortness of Breath. No: Wheezing, Productive cough Cardiac (ROS): Yes: Irregular Heart Rate, Lightheadedness. No: Chest Pain, Edema, Palpitations, Syncope ABD/GI: Yes: Other (abd pain epigastric). No: Constipated, Diarrhea, Nausea, Vomiting : No: Symptoms Reported Musculoskeletal: No: Symptoms Reported, Back Pain Integumentary: No: Symptoms Reported Neurological: No: Symptoms reported Endocrine: No: Symptoms Reported Hematologic/Lymphatic: No: Symptoms Reported All Other Systems: Reviewed and Negative *Physical Exam - Vital Signs Last Vital Signs Temp Pulse Resp BP Pulse Ox 97.8 F 87 24 H 125/81 92 L 01/24/19 10:28 01/24/19 10:28 01/24/19 10:28 01/24/19 10:28 01/24/19 10:28 - Physical Exam General Appearance: Yes: Nourished, Appropriately Dressed. No: Apparent Distress HEENT: positive: EOMI, ZOEY, Normal Voice, Symmetrical, Pharynx Normal. negative: Scleral Icterus (R), Scleral Icterus (L) Neck: positive: Trachea midline, Supple. negative: Tender, Lymphadenopathy (R) , Lymphadenopathy (L) Respiratory/Chest: positive: Lungs Clear, Normal Breath Sounds, Labored Respiration. negative: Chest Tender, Crackles, Rales, Rhonchi, Stridor, Wheezing Cardiovascular: positive: Tachycardia, Irregularly Irregular. negative: Edema, Murmur Gastrointestinal/Abdominal: positive: Normal Bowel Sounds, Flat, Soft. negative : Tender, Organomegaly, Pulsatile Mass, Guarding, Rebound Musculoskeletal: positive: Normal Inspection. negative: CVA Tenderness, Vertebral Tenderness Extremity: positive: Normal Capillary Refill, Normal Inspection, Normal Range of Motion. negative: Tender, Swelling, Calf Tenderness Integumentary: positive: Normal Color, Dry, Warm Neurologic: positive: Fully Oriented, Alert, Normal Mood/Affect, Normal Response Heart Score/ECG Review - History History: Moderately suspicious - Electrocardiogram EKG: Non specific repolarization disturbance - Age Age: >/= 65 - Risk Factors Risk Factors Heart Score: Yes Hx Hypertension, Yes Hx Diabetes, Yes Smoking History, Yes Hx Obesity Based on the list above the patient has:: >/=3 risk factors or Hx atherosclerotic disease - Troponin Troponin: 1-3x normal limit - Score Heart Score - Total: 7 ED Treatment Course - LABORATORY CBC & Chemistry Diagram: 01/24/19 11:05 01/24/19 11:05 Medical Decision Making - Medical Decision Making 01/24/19 10:34 Yamil Luong is a 68M with PMH CHF, CVA (2014) HTN, HLD, IDDM, COPD not on home oxygen or meds, presenting with SOB and weakness. Presentation consistent with CHF exacerbation vs. COPD exacerbation vs. PNA. Patient has no crackles or wheezing on exam, but has concerning history for both. Denies fever or other systemic symptoms. Has Afib on ECG from triage, could likely be contributer to SOB but no RVR, HR at 90. Not on home medications for rate control, unclear if on AC CMP CBC CP CXR ECG Coags Lipase BNP 01/24/19 12:36 CXR no evidence of infiltrates, pulmonary edema, or pleural effusions, grossly unchanged from prior CXR 11 months ago. ECG afib HR 107, QRS 104, QTc 536, no evidence of ischemic changes but TWI in AVL, V5-V6, consistent with prior ECG last year Labs notable for: - BNP 1900 - trop 0.06 01/24/19 15:28 Discussed case with libia Begum to admit to tele under her service. Patient given 40mg Lasix for presumed CHF exacerbation given no wheezing or PNA but patient still SOB on 2L NC, satting 97% Discharge - Discharge Information Problems reviewed: Yes Clinical Impression/Diagnosis: Dyspnea Qualifiers: Dyspnea type: shortness of breath Qualified Code(s): R06.02 - Shortness of breath; R06.00 - Dyspnea, unspecified; R06.01 - Orthopnea CHF exacerbation Qualifiers: Heart failure type: unspecified Qualified Code(s): I50.9 - Heart failure, unspecified Condition: Stable - Follow up/Referral Referrals: Yamil Jeffery MD [Primary Care Provider] - - Patient Discharge Instructions - Post Discharge Activity
[2019-01-24 11:28] LABS: EOS % 1.9 % (0-4.5); HEMATOCRIT 38.8 % (35.4-49); HEMOGLOBIN 12.8 GM/dL (11.7-16.9); LYMPH % 31.8 % (8-40); MCH 29.7 pg (25.7-33.7); MCHC 33.1 g/dl (32.0-35.9); MEAN CELL VOLUME 89.8 fl (80-96); MEAN PLT VOLUME 10.4 fl (7.5-11.1); MONO % 5.4 % (3.8-10.2); NEUT % 59.9 % (42.8-82.8); PLATELET COUNT 230 K/MM3 (134-434); RBC 4.32 M/mm3 (4.00-5.60); RDW 14.9 % (11.9-15.9); WHITE BLOOD COUNT 9.1 K/mm3 (4.0-10.0)
[2019-01-24 11:52] LABS: N-TERMINAL BNP 1920.1 pg/ml (5-125); PHOSPHOROUS 3.2 mg/dL (2.5-4.9)
[2019-01-24 12:08] LABS: INR 1.02 (0.83-1.09)
[2019-01-24 12:11] LABS: ACTIVATED PTT 31.1 SECONDS (25.2-36.5)
--- NOTE | 2019-01-24 12:32 | PDOC ---
Attending Attestation - Resident Resident Name: Abisai Terry - ED Attending Attestation I have performed the following: I have examined & evaluated the patient, The case was reviewed & discussed with the resident, I agree w/resident's findings & plan, Exceptions are as noted - HPI HPI: 01/24/19 16:02 68 years old past medical history significant for CHF hypertension hyperlipidemia insulin-dependent diabetes COPD not on home oxygen noncompliant with medications presents to the emergency department with weight gain shortness of breath and difficulty breathing symptoms are mild to moderate persistent constant gradually worsening active smoker - Physicial Exam PE: 01/24/19 16:02 Vitals: Triage Vital signs reviewed General Appearance: No acute distress, well nourished well developed, Head: Atraumatic, Chest Wall: Nontender Cardiac: Regular rate and rhythym, no murmurs, no rubs, no gallops, Lungs: Crackles at the bases Abdomen: Soft, non distended, normal bowel sounds, non tender to palpation Extremities: Full range of motion to all extremities, no cyanosis, clubbing, or edema Skin: Warm and dry, no rashes or lesions, no rash, no petechiae Psych: Normal mood, normal affect - Medical Decision Making 01/24/19 16:10 60 years old with shortness of breath history and examination consistent with CHF exacerbation We will diurese slightly elevated troponin likely demand will observe for CHF/ chest pain EKG demonstrates atrial fibrillation left axis deviation T wave inversions laterally Interpreted by me 01/24/19 17:05
[2019-01-24 13:09] LABS: ALBUMIN 3.9 g/dl (3.4-5.0); BILIRUBIN,TOTAL 0.8 mg/dL (0.2-1); BLOOD UREA NITROGEN 11.6 mg/dL (7-18); CALCIUM 8.3 mg/dL (8.5-10.1); CREATININE 1.1 mg/dL (0.55-1.3); POTASSIUM 3.3 mmol/L (3.5-5.1); TOT PROT 6.4 g/dl (6.4-8.2)
[2019-01-24] MEDS ORDERED: FUROSEMIDE 40 MG/4 ML INJECTABLE VIAL IVPUSH ONE (14:53)
[2019-01-24] MEDS ORDERED: FUROSEMIDE 40 MG/4 ML INJECTABLE VIAL ONE (15:27)
[2019-01-24 16:34] LABS: EPI CELLS 0.6 /HPF (0-5/HPF); HYALINE CASTS 5 /lpf (0-8); PH,URINE 5.5 (5.0-8.0); URINE APPEARANCE CLEAR; URINE BACTERIA 3.4 /hpf (NEGATIVE); URINE BILIRUBIN NEGATIVE (NEGATIVE); URINE COLOR YELLOW; URINE GLUCOSE (UA) NEGATIVE (NEGATIVE); URINE KETONE NEGATIVE (NEGATIVE); URINE LEUK ESTERASE NEGATIVE (NEGATIVE); URINE NITRITE NEGATIVE (NEGATIVE); URINE PROTEIN 2+ (NEGATIVE); URINE RBC 3 /hpf (0-4); URINE UROBILINOGEN 0.2 mg/dL (0.2-1.0); URINE WBC 1 /hpf (0-5)
[2019-01-25] MEDS ORDERED: metFORMIN HCL 500 MG TABLET (FP) ONE (06:23)
[2019-01-25] MEDS: metFORMIN HCL 500 MG TABLET (FP) PO SCH ×2 (06:31→16:56)
[2019-01-25] MEDS: INSULIN SLIDING SCALE (NOVOLOG) 1 VIAL SQ SCH ×4 (06:31→22:03)
[2019-01-25 06:41] LABS: BASO % 0.7 % (0-2.0); EOS % 2.4 % (0-4.5); HEMATOCRIT 38.2 % (35.4-49); HEMOGLOBIN 12.9 GM/dL (11.7-16.9); LYMPH % 38.5 % (8-40); MCH 29.9 pg (25.7-33.7); MCHC 33.7 g/dl (32.0-35.9); MEAN CELL VOLUME 88.6 fl (80-96); MEAN PLT VOLUME 9.9 fl (7.5-11.1); MONO % 6.6 % (3.8-10.2); NEUT % 51.8 % (42.8-82.8); PLATELET COUNT 252 K/MM3 (134-434); RBC 4.31 M/mm3 (4.00-5.60); RDW 14.9 % (11.9-15.9); WHITE BLOOD COUNT 8.4 K/mm3 (4.0-10.0)
[2019-01-25 07:11] LABS: ALBUMIN 3.8 g/dl (3.4-5.0); BILIRUBIN,TOTAL 0.9 mg/dL (0.2-1); BLOOD UREA NITROGEN 13.9 mg/dL (7-18); CALCIUM 8.6 mg/dL (8.5-10.1); CREATININE 1.1 mg/dL (0.55-1.3); POTASSIUM 3.5 mmol/L (3.5-5.1); TOT PROT 6.7 g/dl (6.4-8.2)
[2019-01-25] MEDS: TAMSULOSIN HCL 0.4 MG CAP PO SCH (09:20)
[2019-01-25] MEDS: ASPIRIN 81 MG CHEWABLE TABLETS PO SCH (09:59)
[2019-01-25] MEDS: DULoxetine HCL 30 MG CAPSULE.DR PO SCH (09:59)
[2019-01-25] MEDS: CARVEDILOL 6.25 MG TABLET (FP) PO SCH ×2 (09:59→21:58)
[2019-01-25] MEDS: SACUBITRIL/VALSARTAN 24 MG-26 MG TABLET PO SCH ×2 (09:59→21:59)
[2019-01-25] MEDS: FUROSEMIDE 40 MG/4 ML INJECTABLE VIAL IVPUSH SCH (10:00)
[2019-01-25] MEDS ORDERED: HEPARIN NA (PORCINE) 5,000 UNITS/ML 1ML VIAL SQ SCH (10:00)
[2019-01-25] MEDS: amLODIPine BESYLATE 5 MG TABLET (FP) PO SCH (10:00)
--- NOTE | 2019-01-25 10:20 | CON.CARD ---
Consult Consult Specialty:: Cardiology (Coverage for Dr. Wang and Dr. Schafer) Referred by:: Dr. Abarca Reason for Consultation:: Cardiac evaluation - History of Present Illness Chief Complaint: Shortness of breath History of Present Illness: Patient is a 68 year old male with underlying history of CAD (non-obstructive), HTN, hypercholesterolemia, DM and COPD who presented to ED with shortness of breath and weakness. Previous echocardiography in 2014 revealed normal LV systolic function, moderate bilateral atrial dilatation. He denies chest pain or palpitations at this time. He denies paroxysmal nocturnal dyspnea or orthopnea. He denies fever or chills. He denies nausea. vomiting, diarrhea or abdominal pain. He denies headache or lightheadedness. He complains of nonproductive cough. - History Source History Provided By: Patient, Family Member, Medical Record Limitations to Obtaining History: Clinical Condition - Past Medical History Cardio/Vascular: Yes: CAD (non-obstructive CAD on cath [facility] 03/27/13), HTN, Hyperlipdemia Pulmonary: Yes: Other (COPD) Renal/: Yes: Renal Inusuff Endocrine: Yes: Diabetes Mellitus - Alcohol/Substance Use Hx Alcohol Use: Yes (1 or 2 a day) History of Substance Use: reports: Cocaine - Smoking History Smoking history: Current some day smoker Have you smoked in the past 12 months: Yes Aproximately how many cigarettes per day: 5 - Social History Usual Living Arrangement: Alone Occupation: retired History of Recent Travel: No Home Medications - Allergies Allergies/Adverse Reactions: Allergies Allergy/AdvReac Type Severity Reaction Status Date / Time No Known Allergies Allergy Verified 01/24/19 14:54 - Home Medications Home Medications: Ambulatory Orders Carvedilol 6.25 mg PO BID 07/16/13 Furosemide [Lasix -] 20 mg PO DAILY 07/16/13 Amlodipine Besylate [Norvasc -] 5 mg PO DAILY 11/03/16 Colchicine [Colcrys] 0.6 mg PO DAILY 11/03/16 Duloxetine HCl 30 mg PO DAILY 11/03/16 Insulin Degludec [Tresiba Flextouch U-200] 40 unit SQ DAILY 11/03/16 Linagliptin/Metformin HCl [Jentadueto 2.5 mg-500 mg Tab] 1 each PO BID 11/03/16 Rosuvastatin Calcium [Crestor] 10 mg PO HS 11/03/16 Linaclotide [Linzess] 72 mcg PO ASDIR 12/19/16 Aspirin [ASA -] 81 mg PO DAILY 01/24/19 Fluticasone Propionate [Flovent Diskus] 2 spray IH DAILY 01/24/19 Sacubitril/Valsartan [Entresto 24 mg-26 mg Tablet] 1 each PO BID 01/24/19 Tamsulosin HCl [Flomax] 0.4 mg PO DAILY 01/24/19 Review of Systems - Review of Systems Constitutional: denies: Chills, Fever Cardiovascular: reports: Shortness of Breath. denies: Chest Pain, Palpitations Respiratory: reports: Cough, SOB, SOB on Exertion. denies: Hemoptysis, Orthopnea, PND Gastrointestinal: denies: Abdominal Pain, Constipation, Diarrhea, Melena, Nausea , Rectal Bleeding, Vomiting Neurological: denies: Dizziness, Headache, Seizure, Syncope Vital Signs: Vital Signs Temperature 98.1 F 01/25/19 09:58 Pulse Rate 86 01/25/19 09:58 Respiratory Rate 18 01/25/19 09:58 Blood Pressure 119/85 01/25/19 09:58 O2 Sat by Pulse Oximetry (%) 98 01/25/19 09:58 Eyes: Yes: PERRL HENT: Yes: Atraumatic Neck: Yes: Supple Respiratory: Yes: Diminished Gastrointestinal: Yes: Normal Bowel Sounds, Soft. No: Tenderness Cardiovascular: Yes: Tachycardia, Pulse Irregular JVD: No PMI: Non-Displaced Heart Sounds: Yes: S1, S2 Murmur: Yes: Systolic Murmur, Grade 1 Edema: No - Other Data Labs, Other Data: CBC, BMP 01/25/19 05:55 01/25/19 05:55 INR, PTT INR 1.02 (0.83-1.09) 01/24/19 11:05 Troponin, BNP 01/24/19 01/24/19 01/25/19 11:05 11:05 02:30 Troponin I 0.06 H 0.05 B-Natriuretic Peptide 1920.1 H Cancelled Laboratory Results - last 24 hr 01/25/19 01/25/19 01/25/19 02:30 05:55 05:55 WBC 8.4 RBC 4.31 Hgb 12.9 Hct 38.2 MCV 88.6 MCH 29.9 MCHC 33.7 RDW 14.9 Plt Count 252 MPV 9.9 Absolute Neuts (auto) 4.4 Neutrophils % 51.8 Lymphocytes % 38.5 D Monocytes % 6.6 Eosinophils % 2.4 Basophils % 0.7 Nucleated RBC % 0 Sodium 143 Potassium 3.5 Chloride 106 Carbon Dioxide 30 Anion Gap 7 L BUN 13.9 Creatinine 1.1 Est GFR (CKD-EPI)AfAm 79.52 Est GFR (CKD-EPI)NonAf 68.61 POC Glucometer Random Glucose 141 H Calcium 8.6 Total Bilirubin 0.9 AST 10 L ALT 26 Alkaline Phosphatase 62 Creatine Kinase 110 Troponin I 0.05 Total Protein 6.7 Albumin 3.8 Atrial fibrillation with RVR, nonspecific ST-T abnormality Imaging - Results Chest X-ray: Report Reviewed (Small effusion at base, cardiomegaly) EKG: Report Reviewed Problem List - Problems (1) Atrial fibrillation Code(s): I48.91 - UNSPECIFIED ATRIAL FIBRILLATION (2) HTN (hypertension) Code(s): I10 - ESSENTIAL (PRIMARY) HYPERTENSION (3) Hypercholesterolemia Code(s): E78.00 - PURE HYPERCHOLESTEROLEMIA, UNSPECIFIED (4) Diabetes mellitus Code(s): E11.9 - TYPE 2 DIABETES MELLITUS WITHOUT COMPLICATIONS (5) CHF exacerbation Code(s): I50.9 - HEART FAILURE, UNSPECIFIED Qualifiers: Heart failure type: unspecified Qualified Code(s): I50.9 - Heart failure, unspecified (6) Dyspnea Code(s): R06.00 - DYSPNEA, UNSPECIFIED Qualifiers: Dyspnea type: shortness of breath Qualified Code(s): R06.02 - Shortness of breath; R06.00 - Dyspnea, unspecified; R06.01 - Orthopnea Assessment/Plan 1. Clinical presentation c/w acute on chronic LV failure likely diastolic +/- ? systolic 2. HTN 3. Hypercholesterolemia 4. DM 5. COPD 6. AF PLAN: 1. Prior cardiac record on chart dates back to 2014 when he was seen by Dr. Mckeon. At that time he was not on Entresto, but currently is on medication list which suggests possible LV systolic dysfunction with at least class II NYHA heart failure. Cardiac record between 2014 and now is not available for review. 2. Currently on Carvedilol 6.25 mg BID, Entresto 24/26 mg BID, Amlodipine 5 mg QD 3. IV diuretics - IV Furosemide and monitor renal function and electrolytes 4. Continue Rosuvastatin 10 mg QHS 5. Ideally needs anticoagulation in view of AF [id number] score of 5. Add Eliquis 5 mg BID 6. Discontinue ASA 7. Echocardiography to assess LV/RV and valvular function Dr. Wang is to resume care on Saturday Yang Cruz MD
--- NOTE | 2019-01-25 16:17 | HP ---
Admitting History and Physical - Admission History of Present Illness: Patient is a 68 year old male with underlying history of CAD (non-obstructive), HTN, hypercholesterolemia, DM and COPD who presented to ED with shortness of breath and weakness wc responderd to trestment w/ O2. Previous echocardiography in 2014 revealed normal LV systolic function, moderate bilateral atrial dilatation. He denies chest pain or palpitations at this time. - Past Medical History Cardiovascular: Yes: CAD (non-obstructive CAD on cath [facility] 03/27/13), HTN, Hyperlipdemia Pulmonary: Yes: Other (COPD) Renal/: Yes: Renal Inusuff (?acute vs chronic) Endocrine: Yes: Diabetes Mellitus - Smoking History Smoking history: Smoker current status UNK Have you smoked in the past 12 months: Yes Aproximately how many cigarettes per day: 5 - Alcohol/Substance Use Hx Alcohol Use: Yes (1 or 2 a day) History of Substance Use: reports: Cocaine - Social History Occupation: retired History of Recent Travel: No Home Medications - Allergies Allergies/Adverse Reactions: Allergies Allergy/AdvReac Type Severity Reaction Status Date / Time No Known Allergies Allergy Verified 01/24/19 14:54 - Home Medications Home Medications: Ambulatory Orders Carvedilol 6.25 mg PO BID 07/16/13 Furosemide [Lasix -] 20 mg PO DAILY 07/16/13 Amlodipine Besylate [Norvasc -] 5 mg PO DAILY 11/03/16 Colchicine [Colcrys] 0.6 mg PO DAILY 11/03/16 Duloxetine HCl 30 mg PO DAILY 11/03/16 Insulin Degludec [Tresiba Flextouch U-200] 40 unit SQ DAILY 11/03/16 Linagliptin/Metformin HCl [Jentadueto 2.5 mg-500 mg Tab] 1 each PO BID 11/03/16 Rosuvastatin Calcium [Crestor] 10 mg PO HS 11/03/16 Linaclotide [Linzess] 72 mcg PO ASDIR 12/19/16 Aspirin [ASA -] 81 mg PO DAILY 01/24/19 Fluticasone Propionate [Flovent Diskus] 2 spray IH DAILY 01/24/19 Sacubitril/Valsartan [Entresto 24 mg-26 mg Tablet] 1 each PO BID 01/24/19 Tamsulosin HCl [Flomax] 0.4 mg PO DAILY 01/24/19 Family Medical History Family History: Unremarkable Review of Systems - Review of Systems Constitutional: reports: No Symptoms Eyes: reports: No Symptoms HENT: reports: No Symptoms Neck: reports: No Symptoms Cardiovascular: reports: Shortness of Breath Respiratory: reports: SOB Gastrointestinal: reports: No Symptoms Genitourinary: reports: No Symptoms Physical Examination Vital Signs: Vital Signs Temperature 98 F 01/25/19 12:24 Pulse Rate 66 01/25/19 12:24 Respiratory Rate 18 01/25/19 12:24 Blood Pressure 111/64 01/25/19 12:24 O2 Sat by Pulse Oximetry (%) 100 01/25/19 12:24 Constitutional: Yes: Well Nourished Eyes: Yes: WNL HENT: Yes: WNL Neck: Yes: WNL, Supple Cardiovascular: Yes: WNL, Regular Rate and Rhythm Respiratory: Yes: Diminished Gastrointestinal: Yes: WNL, Normal Bowel Sounds, Soft Musculoskeletal: Yes: WNL Extremities: Yes: WNL Edema: LLE: Trace, RLE: Trace Neurological: Yes: WNL, Alert, Oriented ...Motor Strength: WNL Labs: CBC, BMP 01/25/19 05:55 01/25/19 05:55 Problem List - Problems (1) CHF exacerbation Assessment/Plan: Cont IV lasix Check echo Serial cpk/troponin to r/o ACS Cardio consult Cont entresto Code(s): I50.9 - HEART FAILURE, UNSPECIFIED Qualifiers: Heart failure type: unspecified Qualified Code(s): I50.9 - Heart failure, unspecified (2) Atrial fibrillation Assessment/Plan: Heart rate controlled Cont eliquis Code(s): I48.91 - UNSPECIFIED ATRIAL FIBRILLATION (3) Diabetes mellitus Assessment/Plan: Cont sliding scale w/ coverage Cont metformin Code(s): E11.9 - TYPE 2 DIABETES MELLITUS WITHOUT COMPLICATIONS (4) HTN (hypertension) Assessment/Plan: BP stable Cont norvasce/coreg/asa Code(s): I10 - ESSENTIAL (PRIMARY) HYPERTENSION (5) Hypercholesterolemia Code(s): E78.00 - PURE HYPERCHOLESTEROLEMIA, UNSPECIFIED (6) COPD (chronic obstructive pulmonary disease) Code(s): J44.9 - CHRONIC OBSTRUCTIVE PULMONARY DISEASE, UNSPECIFIED
[2019-01-25 18:46] VITALS: BMI 32.1
--- NOTE | 2019-01-25 21:13 | EKG ---
Test Reason : Blood Pressure : / mmHG Vent. Rate : 107 BPM Atrial Rate : 120 BPM P-R Int : 000 ms QRS Dur : 104 ms QT Int : 402 ms P-R-T Axes : 000 -31 105 degrees QTc Int : 536 ms ATRIAL FIBRILLATION WITH RAPID VENTRICULAR RESPONSE WITH PREMATURE VENTRICULAR OR ABERRANTLY CONDUCTED COMPLEXES LEFT AXIS DEVIATION T WAVE ABNORMALITY, CONSIDER LATERAL ISCHEMIA PROLONGED QT ABNORMAL ECG WHEN COMPARED WITH ECG OF 25-AUG-2017 09:48, ATRIAL FIBRILLATION HAS REPLACED SINUS RHYTHM T WAVE VARIATION VENT. RATE HAS INCREASED Confirmed by JUNIE JACINTO MD ([id number]) on 01/25/2019 9:12:52 PM Referred By: Confirmed By:JUNIE JACINTO MD
[2019-01-25] MEDS: APIXABAN 5 MG TABLET PO SCH (21:58)
[2019-01-25] MEDS: ROSUVASTATIN CA 10 MG TABLET (FP) PO SCH (21:58)
[2019-01-26] MEDS: metFORMIN HCL 500 MG TABLET (FP) PO SCH ×2 (06:16→17:03)
[2019-01-26] MEDS: INSULIN SLIDING SCALE (NOVOLOG) 1 VIAL SQ SCH ×4 (06:20→21:28)
[2019-01-26] MEDS: TAMSULOSIN HCL 0.4 MG CAP PO SCH (08:57)
--- NOTE | 2019-01-26 09:51 | PN ---
Progress Note, Physician History of Present Illness: Patient is a 68 year old male with underlying history of CAD (non-obstructive), HTN, hypercholesterolemia, DM and COPD who presented to ED with shortness of breath and weakness. Previous echocardiography in 2014 revealed normal LV systolic function, moderate bilateral atrial dilatation. He denies chest pain or palpitations at this time. He denies paroxysmal nocturnal dyspnea or orthopnea. He denies fever or chills. He denies nausea. vomiting, diarrhea or abdominal pain. He denies headache or lightheadedness. He complains of nonproductive cough. - Current Medication List Current Medications: Active Medications Amlodipine Besylate (Norvasc -) 5 mg PO DAILY ON [facility] OF [facility] Last Admin: 01/25/19 10:00 Dose: 5 mg Apixaban (Eliquis -) 5 mg PO BID ON [facility] OF [facility] Last Admin: 01/25/19 21:58 Dose: 5 mg Aspirin (Asa -) 81 mg PO DAILY ON [facility] OF [facility] Last Admin: 01/25/19 09:59 Dose: 81 mg Carvedilol (Coreg -) 6.25 mg PO BID ON [facility] OF [facility] Last Admin: 01/25/19 21:58 Dose: 6.25 mg Duloxetine HCl (Cymbalta -) 30 mg PO DAILY ON [facility] Last Admin: 01/25/19 09:59 Dose: 30 mg Furosemide (Lasix Injection -) 40 mg IVPUSH DAILY ON [facility] OF [facility] Last Admin: 01/25/19 10:00 Dose: 40 mg Insulin Aspart (Novolog Vial Sliding Scale -) 1 vial SQ [facility] ON LICENSE OF [facility]; Protocol Last Admin: 01/26/19 06:20 Dose: 2 units Metformin HCl (Glucophage -) 1,000 mg PO BID@0700,1630 ON [facility] OF [facility] Last Admin: 01/26/19 06:16 Dose: 1,000 mg Rosuvastatin Calcium (Crestor -) 10 mg PO HS [facility] Last Admin: 01/25/19 21:58 Dose: 10 mg Sacubitril/Valsartan (Entresto 24 Mg-26 Mg Tablet) 1 tab PO BID ON [facility] OF [facility] Last Admin: 01/25/19 21:59 Dose: 1 tab Tamsulosin HCl (Flomax -) 0.4 mg PO DAILY@0830 [facility] Last Admin: 01/26/19 08:57 Dose: 0.4 mg - Objective Vital Signs: Vital Signs Temperature 98.1 F 01/26/19 05:32 Pulse Rate 103 H 01/26/19 05:32 Respiratory Rate 22 H 01/26/19 05:32 Blood Pressure 129/94 01/26/19 05:32 O2 Sat by Pulse Oximetry (%) 96 01/25/19 20:15 Eyes: Yes: WNL, Conjunctiva Clear, EOM Intact HENT: Yes: WNL, Atraumatic, Normocephalic Neck: Yes: WNL, Supple, Trachea Midline Cardiovascular: Yes: WNL, Pulse Irregular Respiratory: Yes: WNL, Regular, CTA Bilaterally Gastrointestinal: Yes: WNL, Normal Bowel Sounds Genitourinary: Yes: WNL Musculoskeletal: Yes: WNL Extremities: Yes: WNL Edema: No Integumentary: Yes: WNL Neurological: Yes: WNL, Alert, Oriented ...Motor Strength: WNL Psychiatric: Yes: WNL Labs: CBC, BMP 01/25/19 05:55 01/25/19 05:55 INR, PTT INR 1.02 (0.83-1.09) 01/24/19 11:05 Problem List - Problems (1) Atrial fibrillation Code(s): I48.91 - UNSPECIFIED ATRIAL FIBRILLATION (2) CHF exacerbation Code(s): I50.9 - HEART FAILURE, UNSPECIFIED Qualifiers: Heart failure type: unspecified Qualified Code(s): I50.9 - Heart failure, unspecified (3) COPD (chronic obstructive pulmonary disease) Code(s): J44.9 - CHRONIC OBSTRUCTIVE PULMONARY DISEASE, UNSPECIFIED (4) Diabetes mellitus Code(s): E11.9 - TYPE 2 DIABETES MELLITUS WITHOUT COMPLICATIONS (5) Dyspnea Code(s): R06.00 - DYSPNEA, UNSPECIFIED Qualifiers: Dyspnea type: shortness of breath Qualified Code(s): R06.02 - Shortness of breath; R06.00 - Dyspnea, unspecified; R06.01 - Orthopnea (6) HTN (hypertension) Code(s): I10 - ESSENTIAL (PRIMARY) HYPERTENSION (7) Hypercholesterolemia Code(s): E78.00 - PURE HYPERCHOLESTEROLEMIA, UNSPECIFIED (8) Abdominal pain Code(s): R10.9 - UNSPECIFIED ABDOMINAL PAIN (9) Ankle pain, left Code(s): M25.572 - PAIN IN LEFT ANKLE AND JOINTS OF LEFT FOOT Qualifiers: Chronicity: acute Qualified Code(s): M25.572 - Pain in left ankle and joints of left foot (10) Chest pain Code(s): R07.9 - CHEST PAIN, UNSPECIFIED Qualifiers: Chest pain type: unspecified Qualified Code(s): R07.9 - Chest pain, unspecified (11) Contusion of rib on right side Code(s): S20.211A - CONTUSION OF RIGHT FRONT WALL OF THORAX, INITIAL ENCOUNTER Qualifiers: Encounter type: initial encounter Qualified Code(s): S20.211A - Contusion of right front wall of thorax, initial encounter (12) Dehydration Code(s): E86.0 - DEHYDRATION (13) Diabetes mellitus out of control Code(s): E11.65 - TYPE 2 DIABETES MELLITUS WITH HYPERGLYCEMIA (14) Elbow pain, right Code(s): M25.521 - PAIN IN RIGHT ELBOW (15) Ding catheter problem Code(s): T83.9XXA - UNSP COMPLICATION OF GENITOURINARY PROSTH DEV/GRFT, INIT Qualifiers: Encounter type: initial encounter Qualified Code(s): T83.9XXA - Unspecified complication of genitourinary prosthetic device, implant and graft, initial encounter (16) Hand laceration Code(s): S61.419A - LACERATION WITHOUT FOREIGN BODY OF UNSP HAND, INIT ENCNTR Qualifiers: Encounter type: initial encounter Laterality: right Qualified Code(s): S61.411A - Laceration without foreign body of right hand, initial encounter (17) Hyperglycemia Code(s): R73.9 - HYPERGLYCEMIA, UNSPECIFIED (18) Hypokalemia Code(s): E87.6 - HYPOKALEMIA (19) Pre-syncope Code(s): R55 - SYNCOPE AND COLLAPSE (20) Sore throat Code(s): J02.9 - ACUTE PHARYNGITIS, UNSPECIFIED (21) Sore throat symptom Code(s): J02.9 - ACUTE PHARYNGITIS, UNSPECIFIED (22) Tendon injury Code(s): [id number] - Assessment/Plan 1. Clinical presentation c/w acute on chronic LV failure likely diastolic +/- ? systolic 2. HTN 3. Hypercholesterolemia 4. DM 5. COPD 6. AF PLAN: 1. Prior cardiac record on chart dates back to 2014 when he was seen by Dr. Mckeon. At that time he was not on Entresto, but currently is on medication list which suggests possible LV systolic dysfunction with at least class II NYHA heart failure. Cardiac record between 2015 and now is not available for review. 2. Currently on Carvedilol 6.25 mg BID, Entresto 24/26 mg BID, Amlodipine 5 mg QD 3. IV diuretics - IV Furosemide and monitor renal function and electrolytes 4. Continue Rosuvastatin 10 mg QHS 5. Ideally needs anticoagulation in view of AF [id number] score of 5. Add Eliquis 5 mg BID 6. Discontinue ASA 7. Echocardiography to assess LV/RV and valvular function cc time 36 min
[2019-01-26] MEDS: amLODIPine BESYLATE 5 MG TABLET (FP) PO SCH (09:59)
[2019-01-26] MEDS: APIXABAN 5 MG TABLET PO SCH ×2 (09:59→21:26)
[2019-01-26] MEDS: SACUBITRIL/VALSARTAN 24 MG-26 MG TABLET PO SCH ×2 (10:00→21:26)
[2019-01-26] MEDS: ASPIRIN 81 MG CHEWABLE TABLETS PO SCH (10:00)
[2019-01-26] MEDS: DULoxetine HCL 30 MG CAPSULE.DR PO SCH (10:00)
[2019-01-26] MEDS: FUROSEMIDE 40 MG/4 ML INJECTABLE VIAL IVPUSH SCH (10:01)
[2019-01-26] MEDS: CARVEDILOL 6.25 MG TABLET (FP) PO SCH ×2 (10:01→21:26)
--- NOTE | 2019-01-26 16:50 | ECHO ---
Name: BREANA DUMONT Exam:Adult Echocardiogram Study Date: 01/26/2019 09:09 AM Age: 68 yrs Reason For Study: CHF Height: 68 in Weight: 212 lb BSA: 2.1 m2 MMode/2D Measurements & Calculations IVSd: 1.0 cm Ao root diam: 2.8 cm LVIDd: 5.8 cm LA dimension: 4.8 cm LVIDs: 4.7 cm LVPWd: 1.3 cm EDV(Teich): 164.7 ml LVOT diam: 2.0 cm ESV(Teich): 100.9 ml LAV (MOD-bp): 83.5 ml Doppler Measurements & Calculations MV E max feliz: 91.7 cm/sec Ao V2 max: 137.1 cm/sec MV A max feliz: 53.8 cm/sec Ao max P.5 mmHg MV E/A: 1.7 MV dec time: 0.29 sec DONOVAN(V,D): 1.9 cm2 LV V1 max P.5 mmHg MR max feliz: 407.4 cm/sec LV V1 max: 78.6 cm/sec MR max P.6 mmHg PA V2 max: 122.2 cm/sec Med Peak E' Feliz: 4.1 cm/sec PA max P.0 mmHg Med E/e': 22.2 Lat Peak E' Feliz: 13.6 cm/sec Lat E/e': 6.7 Procedure A complete two-dimensional transthoracic echocardiogram was performed (2D, M-mode, Doppler and color flow Doppler). Left Ventricle The left ventricle is mildly dilated. Left ventricular systolic function is severely reduced. Ejectio n Fraction = 30-35%. Diastolic dysfunction, Grade II (pseudonormalization pattern). Ratio E/E'= 22. The re is moderate to severe global hypokinesis of the left ventricle. Right Ventricle The right ventricle is normal size. The right ventricular systolic function is normal. Atria The left atrium is mildly dilated. LA volume index is 40 ml/m2. Right atrial size is normal. Mitral Valve There is mild mitral valve thickening. There is mild mitral annular calcification. There is moderate mitral regurgitation. Tricuspid Valve The tricuspid valve is normal in structure and function. No tricuspid regurgitation. Aortic Valve There is mild aortic sclerosis.;. No aortic regurgitation is present. Pulmonic Valve The pulmonic valve is not well visualized. Great Vessels The aortic root is normal size. Pericardium/Pleura There is no pericardial effusion. Interpretation Summary The left ventricle is mildly dilated. Left ventricular systolic function is severely reduced. There is moderate to severe global hypokinesis of the left ventricle. Ejection Fraction = 30-35%. Diastolic dysfunction, Grade II (pseudonormalization pattern). Ratio E/E'= 22 c/w elevated filling pressure The right ventricular systolic function is normal. The left atrium is mildly dilated. Right atrial size is normal. There is mild mitral valve thickening. There is mild mitral annular calcification. There is moderate mitral regurgitation. There is mild aortic sclerosis.; There is no pericardial effusion. Yang Cruz MD 01/26/2019 04:49 PM
[2019-01-26] MEDS: ROSUVASTATIN CA 10 MG TABLET (FP) PO SCH (21:26)
--- NOTE | 2019-01-26 22:05 | PN ---
Progress Note, Physician History of Present Illness: Pt denies any SOB - Current Medication List Current Medications: Active Medications Amlodipine Besylate (Norvasc -) 5 mg PO DAILY [facility] Last Admin: 01/26/19 09:59 Dose: 5 mg Apixaban (Eliquis -) 5 mg PO BID [facility] Last Admin: 01/26/19 21:26 Dose: 5 mg Aspirin (Asa -) 81 mg PO DAILY [facility] Last Admin: 01/26/19 10:00 Dose: 81 mg Carvedilol (Coreg -) 6.25 mg PO BID [facility] Last Admin: 01/26/19 21:26 Dose: 6.25 mg Duloxetine HCl (Cymbalta -) 30 mg PO DAILY [facility] Last Admin: 01/26/19 10:00 Dose: 30 mg Furosemide (Lasix Injection -) 40 mg IVPUSH DAILY [facility] Last Admin: 01/26/19 10:01 Dose: 40 mg Insulin Aspart (Novolog Vial Sliding Scale -) 1 vial SQ [facility]; Protocol Last Admin: 01/26/19 21:28 Dose: 2 units Metformin HCl (Glucophage -) 1,000 mg PO BID@0700,1630 [facility] Last Admin: 01/26/19 17:03 Dose: 1,000 mg Rosuvastatin Calcium (Crestor -) 10 mg PO HS [facility] Last Admin: 01/26/19 21:26 Dose: 10 mg Sacubitril/Valsartan (Entresto 24 Mg-26 Mg Tablet) 1 tab PO BID [facility] Last Admin: 01/26/19 21:26 Dose: 1 tab Tamsulosin HCl (Flomax -) 0.4 mg PO DAILY@0830 [facility] Last Admin: 01/26/19 08:57 Dose: 0.4 mg - Objective Vital Signs: Vital Signs Temperature 98.3 F 01/26/19 18:00 Pulse Rate 103 H 01/26/19 18:00 Respiratory Rate 22 H 01/26/19 18:00 Blood Pressure 132/92 01/26/19 18:00 O2 Sat by Pulse Oximetry (%) 96 01/26/19 09:00 Cardiovascular: Yes: WNL, Regular Rate and Rhythm Respiratory: Yes: WNL, Regular, CTA Bilaterally Gastrointestinal: Yes: WNL, Normal Bowel Sounds, Soft Edema: No Labs: CBC, BMP 01/25/19 05:55 01/25/19 05:55 INR, PTT INR 1.02 (0.83-1.09) 01/24/19 11:05 Problem List - Problems (1) CHF exacerbation Assessment/Plan: Cont IV lasix CPK/troponin are negative Cont entresto Code(s): I50.9 - HEART FAILURE, UNSPECIFIED Qualifiers: Heart failure type: unspecified Qualified Code(s): I50.9 - Heart failure, unspecified (2) Atrial fibrillation Assessment/Plan: Heart rate controlled Cont eliquis Code(s): I48.91 - UNSPECIFIED ATRIAL FIBRILLATION (3) Diabetes mellitus Assessment/Plan: Cont sliding scale w/ coverage Cont metformin Code(s): E11.9 - TYPE 2 DIABETES MELLITUS WITHOUT COMPLICATIONS (4) HTN (hypertension) Assessment/Plan: BP stable Cont norvasce/coreg/asa Code(s): I10 - ESSENTIAL (PRIMARY) HYPERTENSION (5) Hypercholesterolemia Code(s): E78.00 - PURE HYPERCHOLESTEROLEMIA, UNSPECIFIED (6) COPD (chronic obstructive pulmonary disease) Code(s): J44.9 - CHRONIC OBSTRUCTIVE PULMONARY DISEASE, UNSPECIFIED
[2019-01-27] MEDS: metFORMIN HCL 500 MG TABLET (FP) PO SCH ×2 (07:17→17:16)
[2019-01-27] MEDS: INSULIN SLIDING SCALE (NOVOLOG) 1 VIAL SQ SCH ×4 (07:18→21:35)
[2019-01-27] MEDS: CARVEDILOL 6.25 MG TABLET (FP) PO SCH ×2 (10:26→21:33)
[2019-01-27] MEDS: ASPIRIN 81 MG CHEWABLE TABLETS PO SCH (10:26)
[2019-01-27] MEDS: TAMSULOSIN HCL 0.4 MG CAP PO SCH (10:26)
[2019-01-27] MEDS: APIXABAN 5 MG TABLET PO SCH ×2 (10:26→21:32)
[2019-01-27] MEDS: amLODIPine BESYLATE 5 MG TABLET (FP) PO SCH (10:27)
[2019-01-27] MEDS: SACUBITRIL/VALSARTAN 24 MG-26 MG TABLET PO SCH ×2 (10:27→21:33)
[2019-01-27] MEDS: DULoxetine HCL 30 MG CAPSULE.DR PO SCH (10:27)
[2019-01-27] MEDS: FUROSEMIDE 40 MG/4 ML INJECTABLE VIAL IVPUSH SCH (10:27)
--- NOTE | 2019-01-27 12:34 | PN ---
Progress Note, Physician Chief Complaint: Pt A&Ox3; sitting up at bedside; no chest pain, dyspnea, dizziness, or palpitations. History of Present Illness: 68 years old black man with past medical history significant for severe systolic CHF (nonischemic cardiomyopathy; cardiac angiogram done 2018; pt refused ICD), hypertension hyperlipidemia, insulin-diabetes, COPD not on home oxygen, current cigarette smoker (has reduced to 1/4 ppd), ?gout (on Colchicine as outpt), noncompliant with medications, now presents to the emergency department with weight gain, shortness of breath; symptoms are mild to moderate , persistent, gradually worsening. - Current Medication List Current Medications: Active Medications Amlodipine Besylate (Norvasc -) 5 mg PO DAILY [facility] Last Admin: 01/27/19 10:27 Dose: 5 mg Apixaban (Eliquis -) 5 mg PO BID [facility] Last Admin: 01/27/19 10:26 Dose: 5 mg Aspirin (Asa -) 81 mg PO DAILY [facility] Last Admin: 01/27/19 10:26 Dose: 81 mg Carvedilol (Coreg -) 6.25 mg PO BID [facility] Last Admin: 01/27/19 10:26 Dose: 6.25 mg Duloxetine HCl (Cymbalta -) 30 mg PO DAILY [facility] Last Admin: 01/27/19 10:27 Dose: 30 mg Furosemide (Lasix Injection -) 40 mg IVPUSH DAILY [facility] Last Admin: 01/27/19 10:27 Dose: 40 mg Insulin Aspart (Novolog Vial Sliding Scale -) 1 vial SQ [facility]; Protocol Last Admin: 01/27/19 07:18 Dose: 4 units Metformin HCl (Glucophage -) 1,000 mg PO BID@0700,1630 [facility] Last Admin: 01/27/19 07:17 Dose: 1,000 mg Rosuvastatin Calcium (Crestor -) 10 mg PO HS [facility] Last Admin: 01/26/19 21:26 Dose: 10 mg Sacubitril/Valsartan (Entresto 24 Mg-26 Mg Tablet) 1 tab PO BID [facility] Last Admin: 01/27/19 10:27 Dose: 1 tab Tamsulosin HCl (Flomax -) 0.4 mg PO DAILY@0830 [facility] Last Admin: 01/27/19 10:26 Dose: 0.4 mg - Objective Vital Signs: Vital Signs Temperature 98.5 F 01/26/19 22:00 Pulse Rate 95 H 01/27/19 08:42 Respiratory Rate 20 01/27/19 08:42 Blood Pressure 97/70 01/27/19 08:42 O2 Sat by Pulse Oximetry (%) 97 01/27/19 08:40 Constitutional: Yes: No Distress, Anxious Eyes: Yes: WNL HENT: Yes: WNL Neck: Yes: WNL Cardiovascular: Yes: S1 (varies in intensity), S2 Respiratory: Yes: Regular Gastrointestinal: Yes: Soft, Abdomen, Obese ...Rectal Exam: Yes: Deferred Genitourinary: No: Anuria Breast(s): Yes: WNL Musculoskeletal: Yes: WNL Extremities: Yes: WNL Edema: No Peripheral Pulses WNL: Yes Integumentary: Yes: WNL Psychiatric: Yes: Alert, Oriented Labs: CBC, BMP 01/25/19 05:55 01/25/19 05:55 INR, PTT INR 1.02 (0.83-1.09) 01/24/19 11:05 - ....Imaging Chest X-ray: Image Reviewed EKG: Image Reviewed Other: Image Reviewed (telemetry: AF; periods of RVR) Problem List - Problems (1) Hypertriglyceridemia Code(s): E78.1 - PURE HYPERGLYCERIDEMIA (2) Acute on chronic systolic and diastolic heart failure, NYHA class 3 Assessment/Plan: As communicated with his captain/check airman, Dr. Zonia Lipscomb, pt has nonischemic cardiomyopathy with LVEF 20% on 2018 coronary angiogram; he refused ICD, but is scheduled to see EP later this month. Continue carvedilol, Entresto. Will lower dose of furosemide (and change to PO), and start spironolactone 25 mg daily. If pt remains stable, he may be followed up as outpatient from cardiac standpoint (Dr. Lipscomb will see him at [facility]'s office on 01/29/2019 if necessary). Code(s): I50.43 - ACUTE ON CHRONIC COMBINED SYSTOLIC AND DIASTOLIC HRT FAIL (3) Atrial fibrillation Assessment/Plan: ?New onset. On carvedilol for systolic CHF, HR control. On apixaban for anticoagulation. Pt's captain/check airman, Dr. Lipscomb, informed. Code(s): I48.91 - UNSPECIFIED ATRIAL FIBRILLATION (4) COPD (chronic obstructive pulmonary disease) Code(s): J44.9 - CHRONIC OBSTRUCTIVE PULMONARY DISEASE, UNSPECIFIED (5) Diabetes mellitus Code(s): E11.9 - TYPE 2 DIABETES MELLITUS WITHOUT COMPLICATIONS (6) HTN (hypertension) Code(s): I10 - ESSENTIAL (PRIMARY) HYPERTENSION (7) Hypercholesterolemia Assessment/Plan: f/u lipid profile; plan on statin even if "normal" values because of DM. Hx hypertriglyceridemia; may require fibrate. F?u TFTs. Code(s): E78.00 - PURE HYPERCHOLESTEROLEMIA, UNSPECIFIED (8) Dehydration Code(s): E86.0 - DEHYDRATION (9) Diabetes mellitus out of control Code(s): E11.65 - TYPE 2 DIABETES MELLITUS WITH HYPERGLYCEMIA (10) Clark cardiac risk >20% in next 10 years Assessment/Plan: If not done recently, will require coronary artery evaluation when stable. Addendum: pt's captain/check airman states he has nonobstructive CAD on 2018 coronary angiogram; he refused ICD at that time, but will see EP in the near future and reconsider his decision. Code(s): Z91.89 - OTH PERSONAL RISK FACTORS, NOT ELSEWHERE CLASSIFIED
[2019-01-27] MEDS ORDERED: SPIRONOLACTONE 25 MG TABLET (FP) PO ONE (13:49)
[2019-01-27] MEDS: ROSUVASTATIN CA 10 MG TABLET (FP) PO SCH (21:33)
--- NOTE | 2019-01-27 23:40 | PN ---
Progress Note, Physician - Current Medication List Current Medications: Active Medications Apixaban (Eliquis -) 5 mg PO BID [facility] Last Admin: 01/27/19 21:32 Dose: 5 mg Aspirin (Asa -) 81 mg PO DAILY [facility] Last Admin: 01/27/19 10:26 Dose: 81 mg Carvedilol (Coreg -) 6.25 mg PO BID [facility] Last Admin: 01/27/19 21:33 Dose: 6.25 mg Duloxetine HCl (Cymbalta -) 30 mg PO DAILY [facility] Last Admin: 01/27/19 10:27 Dose: 30 mg Furosemide (Lasix -) 20 mg PO DAILY [facility] Insulin Aspart (Novolog Vial Sliding Scale -) 1 vial SQ [facility]; Protocol Last Admin: 01/27/19 21:35 Dose: 2 units Metformin HCl (Glucophage -) 1,000 mg PO BID@0700,1630 [facility] Last Admin: 01/27/19 17:16 Dose: 1,000 mg Rosuvastatin Calcium (Crestor -) 10 mg PO HS [facility] Last Admin: 01/27/19 21:33 Dose: 10 mg Sacubitril/Valsartan (Entresto 24 Mg-26 Mg Tablet) 1 tab PO BID [facility] Last Admin: 01/27/19 21:33 Dose: 1 tab Spironolactone (Aldactone -) 25 mg PO DAILY [facility] Tamsulosin HCl (Flomax -) 0.4 mg PO DAILY@0830 [facility] Last Admin: 01/27/19 10:26 Dose: 0.4 mg - Objective Vital Signs: Vital Signs Temperature 99.0 F 01/27/19 18:00 Pulse Rate 85 01/27/19 19:51 Respiratory Rate 24 H 01/27/19 19:51 Blood Pressure 117/82 01/27/19 19:51 O2 Sat by Pulse Oximetry (%) 96 01/27/19 19:45 Labs: CBC, BMP 01/25/19 05:55 01/25/19 05:55 INR, PTT INR 1.02 (0.83-1.09) 01/24/19 11:05 Problem List - Problems (1) CHF exacerbation Code(s): I50.9 - HEART FAILURE, UNSPECIFIED Qualifiers: Heart failure type: unspecified Qualified Code(s): I50.9 - Heart failure, unspecified (2) Atrial fibrillation Code(s): I48.91 - UNSPECIFIED ATRIAL FIBRILLATION (3) Diabetes mellitus Code(s): E11.9 - TYPE 2 DIABETES MELLITUS WITHOUT COMPLICATIONS (4) HTN (hypertension) Code(s): I10 - ESSENTIAL (PRIMARY) HYPERTENSION (5) Hypercholesterolemia Code(s): E78.00 - PURE HYPERCHOLESTEROLEMIA, UNSPECIFIED (6) COPD (chronic obstructive pulmonary disease) Code(s): J44.9 - CHRONIC OBSTRUCTIVE PULMONARY DISEASE, UNSPECIFIED
[2019-01-28] MEDS: metFORMIN HCL 500 MG TABLET (FP) PO SCH ×2 (06:48→16:52)
[2019-01-28] MEDS: INSULIN SLIDING SCALE (NOVOLOG) 1 VIAL SQ SCH ×3 (06:48→17:19)
[2019-01-28] MEDS: SACUBITRIL/VALSARTAN 24 MG-26 MG TABLET PO SCH ×2 (06:49→09:01)
[2019-01-28] MEDS ORDERED: CARVEDILOL 12.5 MG TABLET (FP) PO SCH ×3 (07:00)
[2019-01-28] MEDS: DULoxetine HCL 30 MG CAPSULE.DR PO SCH (09:04)
[2019-01-28] MEDS: TAMSULOSIN HCL 0.4 MG CAP PO SCH (09:04)
[2019-01-28] MEDS: APIXABAN 5 MG TABLET PO SCH (09:04)
[2019-01-28] MEDS: ASPIRIN 81 MG CHEWABLE TABLETS PO SCH (09:04)
[2019-01-28] MEDS ORDERED: FUROSEMIDE 20 MG TABLET (FP) PO SCH (10:00)
[2019-01-28] MEDS ORDERED: SPIRONOLACTONE 25 MG TABLET (FP) PO SCH (10:00)
--- NOTE | 2019-01-28 10:48 | PN ---
Progress Note, Physician History of Present Illness: Patient is a 68 year old male with underlying history of CAD (non-obstructive), HTN, hypercholesterolemia, DM and COPD who presented to ED with shortness of breath and weakness. Previous echocardiography in 2014 revealed normal LV systolic function, moderate bilateral atrial dilatation. He denies chest pain or palpitations at this time. He denies paroxysmal nocturnal dyspnea or orthopnea. He denies fever or chills. He denies nausea. vomiting, diarrhea or abdominal pain. He denies headache or lightheadedness. He complains of nonproductive cough. - Current Medication List Current Medications: Active Medications Apixaban (Eliquis -) 5 mg PO BID [facility] Last Admin: 01/28/19 09:04 Dose: 5 mg Aspirin (Asa -) 81 mg PO DAILY [facility] Last Admin: 01/28/19 09:04 Dose: 81 mg Carvedilol (Coreg -) 12.5 mg PO BID [facility] Last Admin: 01/28/19 07:01 Dose: 12.5 mg Duloxetine HCl (Cymbalta -) 30 mg PO DAILY [facility] Last Admin: 01/28/19 09:04 Dose: 30 mg Furosemide (Lasix -) 20 mg PO DAILY [facility] Last Admin: 01/28/19 09:04 Dose: 20 mg Insulin Aspart (Novolog Vial Sliding Scale -) 1 vial SQ [facility]; Protocol Last Admin: 01/28/19 06:48 Dose: 2 units Metformin HCl (Glucophage -) 1,000 mg PO BID@0700,1630 [facility] Last Admin: 01/28/19 06:48 Dose: 1,000 mg Rosuvastatin Calcium (Crestor -) 10 mg PO HS [facility] Last Admin: 01/27/19 21:33 Dose: 10 mg Sacubitril/Valsartan (Entresto 24 Mg-26 Mg Tablet) 1 tab PO BID [facility] Last Admin: 01/28/19 09:01 Dose: Not Given Spironolactone (Aldactone -) 25 mg PO DAILY [facility] Last Admin: 01/28/19 09:04 Dose: 25 mg Tamsulosin HCl (Flomax -) 0.4 mg PO DAILY@0830 [facility] Last Admin: 01/28/19 09:04 Dose: 0.4 mg - Objective Vital Signs: Vital Signs Temperature 98.3 F 01/28/19 08:00 Pulse Rate 92 H 01/28/19 08:00 Respiratory Rate 20 01/28/19 09:00 Blood Pressure 113/69 01/28/19 08:00 O2 Sat by Pulse Oximetry (%) 96 01/28/19 09:00 Eyes: Yes: WNL, Conjunctiva Clear, EOM Intact HENT: Yes: WNL, Atraumatic, Normocephalic Neck: Yes: WNL, Supple, Trachea Midline Cardiovascular: Yes: WNL, Regular Rate and Rhythm Respiratory: Yes: WNL, Regular, CTA Bilaterally Gastrointestinal: Yes: WNL, Normal Bowel Sounds Genitourinary: Yes: WNL Musculoskeletal: Yes: WNL Extremities: Yes: WNL Edema: No Integumentary: Yes: WNL Neurological: Yes: WNL, Alert, Oriented ...Motor Strength: WNL Psychiatric: Yes: WNL Labs: CBC, BMP 01/25/19 05:55 01/25/19 05:55 INR, PTT INR 1.02 (0.83-1.09) 01/24/19 11:05 Problem List - Problems (1) Atrial fibrillation Code(s): I48.91 - UNSPECIFIED ATRIAL FIBRILLATION (2) CHF exacerbation Code(s): I50.9 - HEART FAILURE, UNSPECIFIED Qualifiers: Heart failure type: unspecified Qualified Code(s): I50.9 - Heart failure, unspecified (3) COPD (chronic obstructive pulmonary disease) Code(s): J44.9 - CHRONIC OBSTRUCTIVE PULMONARY DISEASE, UNSPECIFIED (4) Diabetes mellitus Code(s): E11.9 - TYPE 2 DIABETES MELLITUS WITHOUT COMPLICATIONS (5) Dyspnea Code(s): R06.00 - DYSPNEA, UNSPECIFIED Qualifiers: Dyspnea type: shortness of breath Qualified Code(s): R06.02 - Shortness of breath; R06.00 - Dyspnea, unspecified; R06.01 - Orthopnea (6) HTN (hypertension) Code(s): I10 - ESSENTIAL (PRIMARY) HYPERTENSION (7) Hypercholesterolemia Code(s): E78.00 - PURE HYPERCHOLESTEROLEMIA, UNSPECIFIED (8) Abdominal pain Code(s): R10.9 - UNSPECIFIED ABDOMINAL PAIN (9) Ankle pain, left Code(s): M25.572 - PAIN IN LEFT ANKLE AND JOINTS OF LEFT FOOT Qualifiers: Chronicity: acute Qualified Code(s): M25.572 - Pain in left ankle and joints of left foot (10) Chest pain Code(s): R07.9 - CHEST PAIN, UNSPECIFIED Qualifiers: Chest pain type: unspecified Qualified Code(s): R07.9 - Chest pain, unspecified (11) Contusion of rib on right side Code(s): S20.211A - CONTUSION OF RIGHT FRONT WALL OF THORAX, INITIAL ENCOUNTER Qualifiers: Encounter type: initial encounter Qualified Code(s): S20.211A - Contusion of right front wall of thorax, initial encounter (12) Dehydration Code(s): E86.0 - DEHYDRATION (13) Diabetes mellitus out of control Code(s): E11.65 - TYPE 2 DIABETES MELLITUS WITH HYPERGLYCEMIA (14) Elbow pain, right Code(s): M25.521 - PAIN IN RIGHT ELBOW (15) Ding catheter problem Code(s): T83.9XXA - UNSP COMPLICATION OF GENITOURINARY PROSTH DEV/GRFT, INIT Qualifiers: Encounter type: initial encounter Qualified Code(s): T83.9XXA - Unspecified complication of genitourinary prosthetic device, implant and graft, initial encounter (16) Hand laceration Code(s): S61.419A - LACERATION WITHOUT FOREIGN BODY OF UNSP HAND, INIT ENCNTR Qualifiers: Encounter type: initial encounter Laterality: right Qualified Code(s): S61.411A - Laceration without foreign body of right hand, initial encounter (17) Hyperglycemia Code(s): R73.9 - HYPERGLYCEMIA, UNSPECIFIED (18) Hypokalemia Code(s): E87.6 - HYPOKALEMIA (19) Pre-syncope Code(s): R55 - SYNCOPE AND COLLAPSE (20) Sore throat Code(s): J02.9 - ACUTE PHARYNGITIS, UNSPECIFIED (21) Sore throat symptom Code(s): J02.9 - ACUTE PHARYNGITIS, UNSPECIFIED (22) Tendon injury Code(s): [id number] - Assessment/Plan - Problems (1) Hypertriglyceridemia Code(s): E78.1 - PURE HYPERGLYCERIDEMIA (2) Acute on chronic systolic and diastolic heart failure, NYHA class 3 Assessment/Plan: As communicated with his heel seat filler, Dr. Zonia Lipscomb, pt has nonischemic cardiomyopathy with LVEF 20% on 2018 coronary angiogram; he refused ICD, but is scheduled to see EP MD later this month. Continue carvedilol, Entresto. Will lower dose of furosemide (and change to PO), and start spironolactone 25 mg daily. If pt remains stable, he may be followed up as outpatient from cardiac standpoint (Dr. Lipscomb will see him at [facility]'s office on 01/29/2019 if necessary). Code(s): I50.43 - ACUTE ON CHRONIC COMBINED SYSTOLIC AND DIASTOLIC HRT FAIL (3) Atrial fibrillation Assessment/Plan: ?New onset. On carvedilol for systolic CHF, HR control. On apixaban for anticoagulation. Pt's heel seat filler, Dr. Lipscomb, informed. Code(s): I48.91 - UNSPECIFIED ATRIAL FIBRILLATION (4) COPD (chronic obstructive pulmonary disease) Code(s): J44.9 - CHRONIC OBSTRUCTIVE PULMONARY DISEASE, UNSPECIFIED (5) Diabetes mellitus Code(s): E11.9 - TYPE 2 DIABETES MELLITUS WITHOUT COMPLICATIONS (6) HTN (hypertension) Code(s): I10 - ESSENTIAL (PRIMARY) HYPERTENSION (7) Hypercholesterolemia Assessment/Plan: f/u lipid profile; plan on statin even if "normal" values because of DM. Hx hypertriglyceridemia; may require fibrate. F?u TFTs. Code(s): E78.00 - PURE HYPERCHOLESTEROLEMIA, UNSPECIFIED (8) Dehydration Code(s): E86.0 - DEHYDRATION (9) Diabetes mellitus out of control Code(s): E11.65 - TYPE 2 DIABETES MELLITUS WITH HYPERGLYCEMIA (10) Mc[place]osh cardiac risk >20% in next 10 years Assessment/Plan: If not done recently, will require coronary artery evaluation when stable. nonobstructive CAD on 2018 coronary angiogram; he refused ICD at that time, but will see EP in the near future and reconsider his decision. Code(s): Z91.89 - OTH PERSONAL RISK FACTORS, NOT ELSEWHERE CLASSIFIED cc time spent 37 min
[2019-01-28 12:21] VITALS: TEMP 98.5
[2019-01-28 14:23] VITALS: BP 135/99; PULSE 101
== END 2019-01-28 17:30 | disposition home or self-care (01) | DRG 293 ==
LOC: JER 10:24 → JERBED 13:31 → J2W 01-25 19:26
PROVIDERS: ADMIT Internal Medicine; ATTEND Internal Medicine
DX: I11.0 Hypertensive heart disease with heart failure (principal); I50.43 Acute on chronic combined systolic (congestive) and diastolic (congestive) heart failure; J44.9 Chronic obstructive pulmonary disease, unspecified; I48.91 Unspecified atrial fibrillation; E86.0 Dehydration; I42.8 Other cardiomyopathies; I25.10 Atherosclerotic heart disease of native coronary artery without angina pectoris; E78.1 Pure hyperglyceridemia; E11.65 Type 2 diabetes mellitus with hyperglycemia
CPT/HCPCS: 36415; 71046-TC-FY; 80053; 80061; 81003; 82550; 82962; 83036; 83721; 83880; 84100; 84443; 84484; 85025; 85610; 85730; 87086; 93005; 93010; 93306-TC; 99285-25; J1644

== ENCOUNTER 2019-01-31 07:27 | Inpatient (IN) | payer OTHER ==
[2019-01-31] MEDS ORDERED: FUROSEMIDE 40 MG/4 ML INJECTABLE VIAL IVPUSH ONE ×2 (07:37→07:38)
[2019-01-31] MEDS ORDERED: NITROGLYCERIN SUBLINGUAL 1/150 0.4 MG TAB SL ONE (07:37)
[2019-01-31] MEDS ORDERED: DEXAMETHASONE SOD PHOSPHATE 10 MG/1 ML VIAL ONE (07:43)
[2019-01-31] MEDS ORDERED: ALBUTEROL SO4 2.5/IPRATROPIUM 0.5 INH SOL 3 ML VIAL.NEB. NEB ONE (07:43)
[2019-01-31] MEDS ORDERED: NITROGLYCERIN SUBLINGUAL 1/150 0.4 MG TAB ONE (08:00)
[2019-01-31] MEDS ORDERED: FUROSEMIDE 40 MG/4 ML INJECTABLE VIAL ONE (08:00)
--- NOTE | 2019-01-31 08:04 | PDOC ---
History of Present Illness - General Chief Complaint: Wheezing Stated Complaint: WHEEZING Time Seen by Provider: 01/31/19 07:29 History Source: Patient, EMS Exam Limitations: No Limitations - History of Present Illness Initial Comments: 01/31/19 07:45 68M with a PMH of CHF, HTN, HLD, IDDM, COPD who presents to the ER with difficulty breathing. Pt was recently discharged from our facility and states that his breathing worsened overnight. He denies CP but admits to worsening SOB and orthopnea. He states that he woke up at 0300 to take his medications. Denies fever, chills, nausea, vomiting, abd pain. Past History - Past Medical History Allergies/Adverse Reactions: Allergies Allergy/AdvReac Type Severity Reaction Status Date / Time No Known Allergies Allergy Verified 01/31/19 07:38 Home Medications: Ambulatory Orders Carvedilol 6.25 mg PO BID 07/16/13 Furosemide [Lasix -] 20 mg PO DAILY 07/16/13 Amlodipine Besylate [Norvasc -] 5 mg PO DAILY 11/03/16 Duloxetine HCl 30 mg PO DAILY 11/03/16 Insulin Degludec [Tresiba Flextouch U-200] 40 unit SQ DAILY 11/03/16 Linagliptin/Metformin HCl [Jentadueto 2.5 mg-500 mg Tab] 1 each PO BID 11/03/16 Rosuvastatin Calcium [Crestor] 10 mg PO HS 11/03/16 Linaclotide [Linzess] 72 mcg PO ASDIR 12/19/16 Aspirin [ASA -] 81 mg PO DAILY 01/24/19 Fluticasone Propionate [Flovent Diskus] 2 spray IH DAILY 01/24/19 Sacubitril/Valsartan [Entresto 24 mg-26 mg Tablet] 1 each PO BID 01/24/19 Tamsulosin HCl [Flomax] 0.4 mg PO DAILY 01/24/19 Apixaban [Eliquis -] 5 mg PO BID #60 tablet 01/27/19 Furosemide [Lasix -] 20 mg PO DAILY #30 tablet 01/27/19 Spironolactone [Aldactone -] 25 mg PO DAILY #30 tablet 01/27/19 Anemia: No Asthma: No Cancer: No Cardiac Disorders: Yes CVA: Yes (stroke 2014) COPD: No CHF: Yes DVT: No Dementia: No Diabetes: Yes Dialysis: No GI Disorders: No Disorders: No HTN: Yes Hypercholesterolemia: Yes Liver Disease: No Seizures: No Thyroid Disease: No - Surgical History Abdominal Surgery: No Appendectomy: No Cardiac Surgery: Yes (CARDIAC STENT) Cholecystectomy: No Lung Surgery: No Neurologic Surgery: No Orthopedic Surgery: No - Immunization History Immunization Up to Date: Yes - Psycho Social/Smoking Cessation Hx Smoking Status: Yes Smoking History: Never smoked Have you smoked in the past 12 months: No Number of Cigarettes Smoked Daily: 5 Cigars Per Day: 0 Information on smoking cessation initiated: No 'Breaking Loose' booklet given: 09/08/11 Hx Alcohol Use: No Drug/Substance Use Hx: No Substance Use Type: Cocaine Hx Substance Use Treatment: No Review of Systems - Review of Systems Able to Perform ROS?: Yes Comments:: 01/31/19 11:46 GENERAL/CONSTITUTIONAL: No fever or chills. No weakness. HEAD, EYES, EARS, NOSE AND THROAT: No change in vision. No ear pain or discharge. No sore throat. CARDIOVASCULAR: No chest pain, palpitations, or lightheadedness. RESPIRATORY: + for SOB. No cough or hemoptysis. GASTROINTESTINAL: No abdominal pain, nausea, vomiting, diarrhea, or constipation. GENITOURINARY: No dysuria, frequency, hematuria, or change in urination. MUSCULOSKELETAL: No joint or muscle swelling or pain. No neck or back pain. SKIN: No rash or lesions. NEUROLOGIC: No headache, numbness, tingling, focal weakness, loss of consciousness, or change in strength/sensation. Is the patient limited Hungarian proficient: No *Physical Exam - Vital Signs Last Vital Signs Temp Pulse Resp BP Pulse Ox 97.3 F L 82 26 H 145/79 97 01/31/19 07:35 01/31/19 07:35 01/31/19 07:35 01/31/19 07:35 01/31/19 07:35 - Physical Exam 01/31/19 11:47 GENERAL: Well developed, well nourished. Awake and alert. No acute distress. HEENT: Normocephalic, atraumatic. Hearing grossly normal. Moist mucous membranes. PERRLA, EOMI. No conjunctival pallor. Sclera are non-icteric. NECK: Supple. Full ROM. No JVD. CARDIOVASCULAR: Regular rate and rhythm. No murmurs, rubs, or gallops. PULMONARY: Mild respiratory distress. Diffuse rhonchi with decreased lung sounds in RLL. ABDOMINAL: Soft. Non-tender. Protuberant. No rebound or guarding. GENITOURINARY: No CVA tenderness bilaterally. MUSCULOSKELETAL: Normal range of motion at all joints. No bony deformities or tenderness. EXTREMITIES: No cyanosis. No clubbing. No edema. No calf tenderness or swelling. SKIN: Warm and dry. Normal capillary refill. No rashes. No jaundice. NEUROLOGICAL: Alert, awake, appropriate. Cranial nerves 2-12 grossly intact. Normal speech. Gait is normal without ataxia. PSYCHIATRIC: Cooperative. Good eye contact. Appropriate mood and affect. ED Treatment Course - LABORATORY CBC & Chemistry Diagram: 02/01/19 06:10 02/01/19 06:10 Medical Decision Making - Medical Decision Making 01/31/19 11:48 68 M with MMP who presents with mild respiratory distress. POCUS shows b/l pleural effusions. Pt given duonebs and steroids en route via EMS. Giving IV home lasix dose and bipap. Pt improved on bipap and admitted to Dr. Abarca. BNP elevated. CXR confirming POCUS findings. Pt with stable vitals and CHF exacerbation. Discharge - Discharge Information Problems reviewed: Yes Clinical Impression/Diagnosis: COPD (chronic obstructive pulmonary disease) Qualifiers: COPD type: unspecified COPD Qualified Code(s): J44.9 - Chronic obstructive pulmonary disease, unspecified CHF exacerbation Qualifiers: Heart failure type: unspecified Qualified Code(s): I50.9 - Heart failure, unspecified Condition: Guarded - Admission Yes - Follow up/Referral - Patient Discharge Instructions - Post Discharge Activity
--- NOTE | 2019-01-31 08:10 | PDOC ---
Attending Attestation - Resident Resident Name: Neville Dickson - ED Attending Attestation I have performed the following: I have examined & evaluated the patient, The case was reviewed & discussed with the resident, I agree w/resident's findings & plan, Exceptions are as noted - HPI HPI: 01/31/19 08:08 68-year-old male history of CAD COPD hypertension CHF here today complaining of worsening shortness of breath. Patient states he was recently mid to the hospital discharged on 1211 about 3 AM this morning suddenly felt worsening shortness of breath did take his medications which include at home p.o. dose of Lasix 20 mg at that time. Called the ambulance on ambulance arrival he was given a DuoNeb and Decadron 10 mg. Was initially found to be with increased work of breathing or respiratory distress per EMS report. Following duo nebs and steroids his work of breathing did improve denies any fevers or chills denies new cough no history of PE or DVT does have leg swelling denies any current chest pain - Physicial Exam PE: 01/31/19 08:09 Patient is awake alert does have increased work of breathing mild distress. Diffuse crackles and rhonchorous breath sounds at the bilateral bases decreased at the bases as well increased work of breathing with accessory muscle use heart is regular tachycardia no murmurs rubs or gallops abdomen is soft distended nontender extremities are warm well perfused there is no noted peripheral edema 2+ DP pulses bilaterally patient is awake alert and oriented x3
[2019-01-31 08:41] LABS: BASO % 0.7 % (0-2.0); EOS % 1.2 % (0-4.5); HEMOGLOBIN 11.8 GM/dL (11.7-16.9); LYMPH % 13.9 % (8-40); MCH 29.3 pg (25.7-33.7); MCHC 32.6 g/dl (32.0-35.9); MEAN CELL VOLUME 89.7 fl (80-96); MEAN PLT VOLUME 10.1 fl (7.5-11.1); MONO % 3.5 % (3.8-10.2); NEUT % 80.7 % (42.8-82.8); PLATELET COUNT 212 K/MM3 (134-434); RBC 4.02 M/mm3 (4.00-5.60); RDW 15.3 % (11.9-15.9); WHITE BLOOD COUNT 10.6 K/mm3 (4.0-10.0)
[2019-01-31 09:13] LABS: ALBUMIN 3.6 g/dl (3.4-5.0); BILIRUBIN,TOTAL 0.5 mg/dL (0.2-1); CALCIUM 8.2 mg/dL (8.5-10.1); CREATININE 1.1 mg/dL (0.55-1.3); N-TERMINAL BNP 1235.8 pg/ml (5-125); POTASSIUM 4.3 mmol/L (3.5-5.1); TOT PROT 6.6 g/dl (6.4-8.2)
--- NOTE | 2019-01-31 10:16 | EKG ---
Test Reason : Blood Pressure : / mmHG Vent. Rate : 095 BPM Atrial Rate : 095 BPM P-R Int : 180 ms QRS Dur : 106 ms QT Int : 418 ms P-R-T Axes : 045 -43 102 degrees QTc Int : 525 ms SINUS RHYTHM WITH PREMATURE SUPRAVENTRICULAR COMPLEXES AND WITH OCCASIONAL PREMATURE VENTRICULAR COMPLEXES LEFT AXIS DEVIATION T WAVE ABNORMALITY, CONSIDER LATERAL ISCHEMIA PROLONGED QT ABNORMAL ECG WHEN COMPARED WITH ECG OF 24-JAN-2019 10:30, SINUS RHYTHM HAS REPLACED ATRIAL FIBRILLATION T WAVE INVERSION LESS EVIDENT IN LATERAL LEADS Confirmed by MARY LOW MD ([id number]) on 01/31/2019 10:16:33 AM Referred By: Confirmed By:MARY LOW MD
--- NOTE | 2019-01-31 23:46 | HP ---
Admitting History and Physical - Admission History of Present Illness: Pt is a 68 y/o male with PMH significant for nonischemic cardiomyopthy ( severely reduced LVEF), COPD, HTN, Afib, CAD, BPH, sleep apnea, and anxiety. Pt presents to the ED complaining of worsening shortness of breath. Patient states he was recently admitted to the hospital and discharged on 01/28/19. At about 3 AM in the morning pt suddenly felt worsening shortness of breath did take his medications which included Lasix 20 mg at that time. EMS was called and he was given a DuoNeb and Decadron 10 mg. Pt was initially found to be with increased work of breathing or respiratory distress per EMS report. Following duo nebs and steroids his work of breathing did improve. In the ED CXR shwoed congestive changes w/ pleural effusions and elevated BNP. - Past Medical History Cardiovascular: Yes: AFIB, CAD, CHF, HTN, Hyperlipdemia Pulmonary: Yes: COPD, Sleep Apnea Renal/: Yes: Renal Inusuff (?acute vs chronic) Endocrine: Yes: Diabetes Mellitus - Smoking History Smoking history: Never smoked Have you smoked in the past 12 months: No Aproximately how many cigarettes per day: 5 - Alcohol/Substance Use Hx Alcohol Use: No History of Substance Use: reports: Cocaine - Social History Occupation: retired History of Recent Travel: No Home Medications - Allergies Allergies/Adverse Reactions: Allergies Allergy/AdvReac Type Severity Reaction Status Date / Time No Known Allergies Allergy Verified 01/31/19 07:38 - Home Medications Home Medications: Ambulatory Orders Carvedilol 6.25 mg PO BID 07/16/13 Furosemide [Lasix -] 20 mg PO DAILY 07/16/13 Amlodipine Besylate [Norvasc -] 5 mg PO DAILY 11/03/16 Duloxetine HCl 30 mg PO DAILY 11/03/16 Insulin Degludec [Tresiba Flextouch U-200] 40 unit SQ DAILY 11/03/16 Linagliptin/Metformin HCl [Jentadueto 2.5 mg-500 mg Tab] 1 each PO BID 11/03/16 Rosuvastatin Calcium [Crestor] 10 mg PO HS 11/03/16 Linaclotide [Linzess] 72 mcg PO ASDIR 12/19/16 Aspirin [ASA -] 81 mg PO DAILY 01/24/19 Fluticasone Propionate [Flovent Diskus] 2 spray IH DAILY 01/24/19 Sacubitril/Valsartan [Entresto 24 mg-26 mg Tablet] 1 each PO BID 01/24/19 Tamsulosin HCl [Flomax] 0.4 mg PO DAILY 01/24/19 Apixaban [Eliquis -] 5 mg PO BID #60 tablet 01/27/19 Furosemide [Lasix -] 20 mg PO DAILY #30 tablet 01/27/19 Spironolactone [Aldactone -] 25 mg PO DAILY #30 tablet 01/27/19 Family Medical History Family History: Unremarkable Review of Systems - Review of Systems Constitutional: reports: No Symptoms Eyes: reports: No Symptoms HENT: reports: No Symptoms Neck: reports: No Symptoms Cardiovascular: reports: Shortness of Breath Respiratory: reports: SOB Gastrointestinal: reports: No Symptoms Genitourinary: reports: No Symptoms Physical Examination Vital Signs: Vital Signs Temperature 97.8 F 01/31/19 18:00 Pulse Rate 90 01/31/19 22:16 Respiratory Rate 19 01/31/19 22:16 Blood Pressure 144/86 01/31/19 22:16 O2 Sat by Pulse Oximetry (%) 97 01/31/19 22:16 Constitutional: Yes: Well Nourished Eyes: Yes: WNL HENT: Yes: WNL Neck: Yes: WNL, Supple Cardiovascular: Yes: WNL, Regular Rate and Rhythm Respiratory: Yes: Rales Gastrointestinal: Yes: WNL, Normal Bowel Sounds, Soft, Abdomen, Obese Musculoskeletal: Yes: WNL Extremities: Yes: WNL Edema: LLE: Trace, RLE: Trace Neurological: Yes: WNL, Alert, Oriented ...Motor Strength: WNL Labs: CBC, BMP 01/31/19 08:25 01/31/19 08:25 Problem List - Problems (1) Acute on chronic congestive heart failure Assessment/Plan: Cont IV lasix Monitor serial cpk/troponin Cardio consult Monitor electrolytes Code(s): I50.9 - HEART FAILURE, UNSPECIFIED (2) CAD (coronary artery disease) Assessment/Plan: Monitor serail cpk/troponin Cont asa Code(s): I25.10 - ATHSCL HEART DISEASE OF [place] CORONARY ARTERY W/O ANG PCTRS (3) Atrial fibrillation Assessment/Plan: Heart rate controlled Cont eleiquis Code(s): I48.91 - UNSPECIFIED ATRIAL FIBRILLATION (4) COPD (chronic obstructive pulmonary disease) Assessment/Plan: Cont duoneb Pulmonary consult Code(s): J44.9 - CHRONIC OBSTRUCTIVE PULMONARY DISEASE, UNSPECIFIED (5) HTN (hypertension) Assessment/Plan: BP stable Cont norvasc/coreg Code(s): I10 - ESSENTIAL (PRIMARY) HYPERTENSION (6) Tobacco abuse Code(s): Z72.0 - TOBACCO USE (7) Obesity Code(s): E66.9 - OBESITY, UNSPECIFIED (8) Anxiety Assessment/Plan: Due to depression Cont cymbalta Code(s): F41.9 - ANXIETY DISORDER, UNSPECIFIED
[2019-02-01] MEDS: SACUBITRIL/VALSARTAN 24 MG-26 MG TABLET PO SCH ×3 (01:14→22:27)
[2019-02-01] MEDS: ALBUTEROL SO4 2.5/IPRATROPIUM 0.5 INH SOL 3 ML VIAL.NEB. NEB PRN ×3 (03:08→20:55)
[2019-02-01 03:16] VITALS: BMI 32.2
[2019-02-01 06:53] LABS: BASO % 0.2 % (0-2.0); HEMATOCRIT 34.4 % (35.4-49); HEMOGLOBIN 11.4 GM/dL (11.7-16.9); LYMPH % 16.4 % (8-40); MCH 29.5 pg (25.7-33.7); MCHC 33.2 g/dl (32.0-35.9); MEAN CELL VOLUME 88.8 fl (80-96); MEAN PLT VOLUME 10.1 fl (7.5-11.1); NEUT % 77.4 % (42.8-82.8); PLATELET COUNT 226 K/MM3 (134-434); RBC 3.87 M/mm3 (4.00-5.60); RDW 15.1 % (11.9-15.9); WHITE BLOOD COUNT 10.3 K/mm3 (4.0-10.0)
[2019-02-01 07:42] LABS: ALBUMIN 3.6 g/dl (3.4-5.0); BILIRUBIN,TOTAL 0.6 mg/dL (0.2-1); BLOOD UREA NITROGEN 19.9 mg/dL (7-18); CALCIUM 8.4 mg/dL (8.5-10.1); CREATININE 1.2 mg/dL (0.55-1.3); POTASSIUM 3.9 mmol/L (3.5-5.1); TOT PROT 6.6 g/dl (6.4-8.2)
[2019-02-01] MEDS ORDERED: FUROSEMIDE 40 MG/4 ML INJECTABLE VIAL ONE (07:52)
[2019-02-01] MEDS: FUROSEMIDE 40 MG/4 ML INJECTABLE VIAL IVPUSH SCH ×2 (07:57→10:05)
[2019-02-01] MEDS ORDERED: SPIRONOLACTONE 25 MG TABLET (FP) PO SCH (10:00)
[2019-02-01] MEDS ORDERED: PT OWN MED DRAWER 7, Y5N ONE (10:07)
[2019-02-01] MEDS: APIXABAN 5 MG TABLET PO SCH ×2 (10:24→21:40)
[2019-02-01] MEDS: ASPIRIN 81 MG CHEWABLE TABLETS PO SCH (10:24)
[2019-02-01] MEDS: DULoxetine HCL 30 MG CAPSULE.DR PO SCH (10:24)
[2019-02-01] MEDS: CARVEDILOL 6.25 MG TABLET (FP) PO SCH ×2 (10:24→21:40)
[2019-02-01] MEDS: amLODIPine BESYLATE 5 MG TABLET (FP) PO SCH (10:25)
--- NOTE | 2019-02-01 12:56 | PN ---
Progress Note (short form) - Note Progress Note: PULMONARY CONSULTATION DICTATED 02/01/19 IMP ACUTE RESPIRATORY FAILURE ACUTE ON CHRONIC SYSTOLIC/DIASTOLIC CHF SEVERE LV SYSTOLIC DYSFUNCTION,MODERATE -SEVERE GLOBAL HYPOKINESIA LVEF 30 -35% ASHD NON-OBSTRUCTIVE + TROPONIN LIKELY DEMAND ISCHEMIA ,R/O NSTEMI PAF COPD IDDM H/O CVA HTN HLD ANEMIA SMOKER SUSPECTED [place] PLAN LASIX ,ALDACTONE ENTRESO ELIQUIS NIPPV NEEDED SUPPLEMENTAL O2 TO MAINTAIN O2 SAT 90% OR GREATER INHALED BRONCHODILATORS STRICT I+OS F/U CHEST X-RAYS MONITOR LYTES TREND TROPONINS DAILY WTS SMOKING CESSATION COUNSELED OUTPATIENT PFTS OUTPATIENT SLEEP STUDIES CHEST CT DR MARCH Problem List - Problems (1) Tobacco abuse Code(s): Z72.0 - TOBACCO USE (2) Tobacco abuse counseling Code(s): Z71.6 - TOBACCO ABUSE COUNSELING (3) Acute on chronic systolic and diastolic heart failure, NYHA class 3 Code(s): I50.43 - ACUTE ON CHRONIC COMBINED SYSTOLIC AND DIASTOLIC HRT FAIL (4) Atrial fibrillation Code(s): I48.91 - UNSPECIFIED ATRIAL FIBRILLATION (5) CHF exacerbation Code(s): I50.9 - HEART FAILURE, UNSPECIFIED Qualifiers: Heart failure type: unspecified Qualified Code(s): I50.9 - Heart failure, unspecified (6) COPD (chronic obstructive pulmonary disease) Code(s): J44.9 - CHRONIC OBSTRUCTIVE PULMONARY DISEASE, UNSPECIFIED (7) Diabetes mellitus Code(s): E11.9 - TYPE 2 DIABETES MELLITUS WITHOUT COMPLICATIONS (8) Dyspnea Code(s): R06.00 - DYSPNEA, UNSPECIFIED Qualifiers: Dyspnea type: shortness of breath Qualified Code(s): R06.02 - Shortness of breath; R06.00 - Dyspnea, unspecified; R06.01 - Orthopnea (9) HTN (hypertension) Code(s): I10 - ESSENTIAL (PRIMARY) HYPERTENSION (10) Hypercholesterolemia Code(s): E78.00 - PURE HYPERCHOLESTEROLEMIA, UNSPECIFIED (11) Acute respiratory failure Code(s): J96.00 - ACUTE RESPIRATORY FAILURE, UNSP W HYPOXIA OR HYPERCAPNIA (12) Troponin level elevated Code(s): R79.89 - OTHER SPECIFIED ABNORMAL FINDINGS OF BLOOD CHEMISTRY
--- NOTE | 2019-02-01 13:19 | CON.CARD ---
Consult Consult Specialty:: cardiology Reason for Consultation:: sudden shortness of breath; severe systolic CHF ( nonischemic cardiomyopathy) - History of Present Illness Chief Complaint: Pt A&Ox3; SOB; no chest pain History of Present Illness: 68-year-old black male with PMhistory of nonischemic ccardiomyopthy (severely reduced LVEF),COPD hypertension, obesity, sedentary lifestyle, sleep apnea, anxiety, here today complaining of worsening shortness of breath. Patient states he was recently mid to the hospital discharged on 1211 about 3 AM this morning suddenly felt worsening shortness of breath did take his medications which include at home p.o. dose of Lasix 20 mg at that time. Called the ambulance on ambulance arrival he was given a DuoNeb and Decadron 10 mg. Was initially found to be with increased work of breathing or respiratory distress per EMS report. Following duo nebs and steroids his work of breathing did improve denies any fevers or chills denies new cough no history of PE or DVT does have leg swelling denies any current chest pain Former cocaine + alcohol and cigarettes (reduced the latter to 1/4 ppd) - - History Source History Provided By: Patient, Family Member, Medical Record Limitations to Obtaining History: No Limitations - Past Medical History Cardio/Vascular: Yes: CAD (non-obstructive CAD on cath [facility] 03/27/13), HTN, Hyperlipdemia Pulmonary: Yes: Other (COPD) Gastrointestinal: Yes: Other (truncal obesity) Renal/: Yes: Renal Inusuff (?acute vs chronic) Endocrine: Yes: Diabetes Mellitus - Past Surgical History Additional Surgical History: coronary angiogram (nonobstrucitve CAD) - Alcohol/Substance Use Hx Alcohol Use: Yes History of Substance Use: reports: Cocaine - Smoking History Smoking history: Current every day smoker Have you smoked in the past 12 months: Yes Aproximately how many cigarettes per day: 5 If you are a former smoker, when did you quit?: 01/30/2019 - Social History Usual Living Arrangement: Alone Occupation: retired History of Recent Travel: No Home Medications - Allergies Allergies/Adverse Reactions: Allergies Allergy/AdvReac Type Severity Reaction Status Date / Time No Known Allergies Allergy Verified 01/31/19 07:38 - Home Medications Home Medications: Ambulatory Orders Carvedilol 6.25 mg PO BID 05/29/14 Furosemide [Lasix -] 20 mg PO DAILY 07/16/13 Amlodipine Besylate [Norvasc -] 5 mg PO DAILY 11/03/16 Duloxetine HCl 30 mg PO DAILY 11/03/16 Insulin Degludec [Tresiba Flextouch U-200] 40 unit SQ DAILY 11/03/16 Linagliptin/Metformin HCl [Jentadueto 2.5 mg-500 mg Tab] 1 each PO BID 11/03/16 Rosuvastatin Calcium [Crestor] 10 mg PO HS 11/03/16 Linaclotide [Linzess] 72 mcg PO ASDIR 12/19/16 Aspirin [ASA -] 81 mg PO DAILY 01/24/19 Fluticasone Propionate [Flovent Diskus] 2 spray IH DAILY 01/24/19 Sacubitril/Valsartan [Entresto 24 mg-26 mg Tablet] 1 each PO BID 01/24/19 Tamsulosin HCl [Flomax] 0.4 mg PO DAILY 01/24/19 Apixaban [Eliquis -] 5 mg PO BID #60 tablet 01/27/19 Furosemide [Lasix -] 20 mg PO DAILY #30 tablet 01/27/19 Spironolactone [Aldactone -] 25 mg PO DAILY #30 tablet 01/27/19 Family Medical History Family History: Denies Review of Systems - Review of Systems Constitutional: reports: No Symptoms - Risk Factors Known Risk Factors: Yes: Age, Diabetes Mellitus, Gender, Hypercholesterolemia, Hypertension, Physical Inactivity, Race, Smoking, Other (severe systolic LV dysfunction) Vital Signs: Vital Signs Temperature 98.0 F 02/01/19 08:05 Pulse Rate 103 H 02/01/19 08:05 Respiratory Rate 28 H 02/01/19 09:00 Blood Pressure 139/91 02/01/19 08:57 O2 Sat by Pulse Oximetry (%) 99 02/01/19 09:00 Constitutional: Yes: Anxious Eyes: Yes: WNL - Other Data Labs, Other Data: CBC, BMP 02/01/19 06:10 02/01/19 06:10 Troponin, BNP 02/01/19 02/01/19 00:52 06:10 Troponin I 0.05 0.06 H Troponin, BNP 02/01/19 02/01/19 00:52 06:10 Troponin I 0.05 0.06 H Imaging - Results Chest X-ray: Image Reviewed EKG: Image Reviewed Other: Image Reviewed (telemetry: NSR; occasional PVCs) Problem List - Problems (1) Obesity Code(s): E66.9 - OBESITY, UNSPECIFIED (2) Anxiety Code(s): F41.9 - ANXIETY DISORDER, UNSPECIFIED (3) Sedentary lifestyle Code(s): Z91.89 - OTH PERSONAL RISK FACTORS, NOT ELSEWHERE CLASSIFIED (4) Acute respiratory failure Code(s): J96.00 - ACUTE RESPIRATORY FAILURE, UNSP W HYPOXIA OR HYPERCAPNIA (5) Tobacco abuse Code(s): Z72.0 - TOBACCO USE (6) Troponin level elevated Code(s): R79.89 - OTHER SPECIFIED ABNORMAL FINDINGS OF BLOOD CHEMISTRY (7) Acute on chronic systolic and diastolic heart failure, NYHA class 3 Assessment/Plan: +)JVD; congestive changes on CXR. BP elevated on admissikon, and likely a major contributer to pt's acute systolic CHF. Continue carvedilol, Entresto. IV Furosemide 40 mg bid. Increase spironolactone to 50 mg qd. F/u BP, HR, BUN/Cr, electrolytes, daily weight, Is and Os. Code(s): I50.43 - ACUTE ON CHRONIC COMBINED SYSTOLIC AND DIASTOLIC HRT FAIL (8) Atrial fibrillation Code(s): I48.91 - UNSPECIFIED ATRIAL FIBRILLATION (9) COPD (chronic obstructive pulmonary disease) Code(s): J44.9 - CHRONIC OBSTRUCTIVE PULMONARY DISEASE, UNSPECIFIED (10) Diabetes mellitus Code(s): E11.9 - TYPE 2 DIABETES MELLITUS WITHOUT COMPLICATIONS (11) HTN (hypertension) Code(s): I10 - ESSENTIAL (PRIMARY) HYPERTENSION (12) Hypercholesterolemia Code(s): E78.00 - PURE HYPERCHOLESTEROLEMIA, UNSPECIFIED
[2019-02-01] MEDS ORDERED: SPIRONOLACTONE 25 MG TABLET (FP) PO ONE (13:45)
[2019-02-01 14:08] LABS: ARTERIAL BLD GAS O2 SATURATION 98.3 % (95-98); ARTERIAL BLOOD GAS BASE EXCESS -2.1 meq/l (-2-2); ARTERIAL BLOOD GAS PCO2 36.6 mmHg (35-45); ARTERIAL BLOOD GAS PO2 118 mmHg (80-100); ARTERIAL BLOOD GAS pH 7.39 (7.35-7.45)
[2019-02-01 14:09] LABS: ALLENS TEST POSITIVE
--- NOTE | 2019-02-01 14:12 | PN ---
Progress Note, Physician Chief Complaint: Pt A&Ox3; still dyspneic. History of Present Illness: 68-year-old black male with PMhistory of nonischemic ccardiomyopthy (severely reduced LVEF),COPD hypertension, obesity, sedentary lifestyle, sleep apnea, anxiety, here today complaining of worsening shortness of breath. Patient states he was recently mid to the hospital discharged on 1211 about 3 AM this morning suddenly felt worsening shortness of breath did take his medications which include at home p.o. dose of Lasix 20 mg at that time. Called the ambulance on ambulance arrival he was given a DuoNeb and Decadron 10 mg. Was initially found to be with increased work of breathing or respiratory distress per EMS report. Following duo nebs and steroids his work of breathing did improve denies any fevers or chills denies new cough no history of PE or DVT does have leg swelling denies any current chest pain Former cocaine + alcohol and cigarettes (reduced the latter to 1/4 ppd) - - Current Medication List Current Medications: Active Medications Albuterol/Ipratropium (Duoneb -) 1 amp NEB Q6H PRN PRN Reason: SHORTNESS OF BREATH Last Admin: 02/01/19 08:08 Dose: 1 amp Amlodipine Besylate (Norvasc -) 5 mg PO DAILY [facility] Last Admin: 02/01/19 10:25 Dose: 5 mg Apixaban (Eliquis -) 5 mg PO BID [facility] Last Admin: 02/01/19 10:24 Dose: 5 mg Aspirin (Asa -) 81 mg PO DAILY [facility] Last Admin: 02/01/19 10:24 Dose: 81 mg Carvedilol (Coreg -) 6.25 mg PO BID [facility] Last Admin: 02/01/19 10:24 Dose: 6.25 mg Duloxetine HCl (Cymbalta -) 30 mg PO DAILY [facility] Last Admin: 02/01/19 10:24 Dose: 30 mg Furosemide (Lasix Injection -) 40 mg IVPUSH DAILY [facility] Last Admin: 02/01/19 10:05 Dose: Not Given Mometasone Furoate (Asmanex 220mcg -) 1 puff IH HS [facility] Rosuvastatin Calcium (Crestor -) 10 mg PO HS [facility] Sacubitril/Valsartan (Entresto 24 Mg-26 Mg Tablet) 1 tab PO BID [facility] Last Admin: 02/01/19 10:26 Dose: Not Given Spironolactone (Aldactone -) 50 mg PO DAILY [facility] - Objective Vital Signs: Vital Signs Temperature 98.0 F 02/01/19 08:05 Pulse Rate 103 H 02/01/19 08:05 Respiratory Rate 28 H 02/01/19 09:00 Blood Pressure 139/91 02/01/19 08:57 O2 Sat by Pulse Oximetry (%) 99 02/01/19 09:00 Constitutional: Yes: Calm Eyes: Yes: WNL HENT: Yes: WNL Respiratory: Yes: Regular Labs: CBC, BMP 02/01/19 06:10 02/01/19 06:10 Problem List - Problems (1) Obesity Code(s): E66.9 - OBESITY, UNSPECIFIED (2) Anxiety Code(s): F41.9 - ANXIETY DISORDER, UNSPECIFIED (3) Sedentary lifestyle Code(s): Z91.89 - OTH PERSONAL RISK FACTORS, NOT ELSEWHERE CLASSIFIED (4) Acute respiratory failure Code(s): J96.00 - ACUTE RESPIRATORY FAILURE, UNSP W HYPOXIA OR HYPERCAPNIA (5) Tobacco abuse Code(s): Z72.0 - TOBACCO USE (6) Troponin level elevated Code(s): R79.89 - OTHER SPECIFIED ABNORMAL FINDINGS OF BLOOD CHEMISTRY (7) Acute on chronic systolic and diastolic heart failure, NYHA class 3 Code(s): I50.43 - ACUTE ON CHRONIC COMBINED SYSTOLIC AND DIASTOLIC HRT FAIL (8) Atrial fibrillation Code(s): I48.91 - UNSPECIFIED ATRIAL FIBRILLATION (9) COPD (chronic obstructive pulmonary disease) Code(s): J44.9 - CHRONIC OBSTRUCTIVE PULMONARY DISEASE, UNSPECIFIED Qualifiers: COPD type: unspecified COPD Qualified Code(s): J44.9 - Chronic obstructive pulmonary disease, unspecified (10) Diabetes mellitus Code(s): E11.9 - TYPE 2 DIABETES MELLITUS WITHOUT COMPLICATIONS (11) HTN (hypertension) Code(s): I10 - ESSENTIAL (PRIMARY) HYPERTENSION (12) Hypercholesterolemia Code(s): E78.00 - PURE HYPERCHOLESTEROLEMIA, UNSPECIFIED
[2019-02-01] MEDS ORDERED: FUROSEMIDE 40 MG/4 ML INJECTABLE VIAL IVPUSH ONE (14:13)
[2019-02-01] MEDS: ROSUVASTATIN CA 10 MG TABLET (FP) PO SCH (21:40)
[2019-02-01] MEDS: MOMETASONE FUROATE 220 MCG/IH INHALER IH SCH (21:40)
--- NOTE | 2019-02-01 22:08 | PN ---
Progress Note, Physician - Current Medication List Current Medications: Active Medications Albuterol/Ipratropium (Duoneb -) 1 amp NEB Q6H PRN PRN Reason: SHORTNESS OF BREATH Last Admin: 02/01/19 20:55 Dose: 1 amp Amlodipine Besylate (Norvasc -) 5 mg PO DAILY [facility] Last Admin: 02/01/19 10:25 Dose: 5 mg Apixaban (Eliquis -) 5 mg PO BID [facility] Last Admin: 02/01/19 21:40 Dose: 5 mg Aspirin (Asa -) 81 mg PO DAILY [facility] Last Admin: 02/01/19 10:24 Dose: 81 mg Carvedilol (Coreg -) 6.25 mg PO BID [facility] Last Admin: 02/01/19 21:40 Dose: 6.25 mg Duloxetine HCl (Cymbalta -) 30 mg PO DAILY [facility] Last Admin: 02/01/19 10:24 Dose: 30 mg Furosemide (Lasix Injection -) 40 mg IVPUSH BID@0600,1400 [facility] Mometasone Furoate (Asmanex 220mcg -) 1 puff IH HS [facility] Last Admin: 02/01/19 21:40 Dose: 1 puff Rosuvastatin Calcium (Crestor -) 10 mg PO [facility] Last Admin: 02/01/19 21:40 Dose: 10 mg Sacubitril/Valsartan (Entresto 24 Mg-26 Mg Tablet) 1 tab PO BID [facility] Last Admin: 02/01/19 10:26 Dose: Not Given Spironolactone (Aldactone -) 50 mg PO DAILY [facility] - Objective Vital Signs: Vital Signs Temperature 98.0 F 02/01/19 18:00 Pulse Rate 90 02/01/19 18:00 Respiratory Rate 22 H 02/01/19 18:00 Blood Pressure 139/69 02/01/19 18:00 O2 Sat by Pulse Oximetry (%) 97 02/01/19 20:48 Constitutional: Yes: Well Nourished HENT: Yes: WNL Neck: Yes: WNL, Supple Cardiovascular: Yes: WNL, Regular Rate and Rhythm Respiratory: Yes: Diminished Gastrointestinal: Yes: WNL, Normal Bowel Sounds, Soft, Abdomen, Obese Edema: LLE: Trace, RLE: Trace Labs: CBC, BMP 02/01/19 06:10 02/01/19 06:10 Problem List - Problems (1) Acute on chronic congestive heart failure Assessment/Plan: Cont IV lasix Monitor serial cpk/troponin Cardio consult Monitor electrolytes Code(s): I50.9 - HEART FAILURE, UNSPECIFIED (2) CAD (coronary artery disease) Assessment/Plan: Monitor serail cpk/troponin Cont asa Code(s): I25.10 - ATHSCL HEART DISEASE OF [place] CORONARY ARTERY W/O ANG PCTRS (3) Atrial fibrillation Assessment/Plan: Heart rate controlled Cont eleiquis Code(s): I48.91 - UNSPECIFIED ATRIAL FIBRILLATION (4) COPD (chronic obstructive pulmonary disease) Assessment/Plan: Cont duoneb Pulmonary consult Code(s): J44.9 - CHRONIC OBSTRUCTIVE PULMONARY DISEASE, UNSPECIFIED (5) HTN (hypertension) Assessment/Plan: BP stable Cont norvasc/coreg Code(s): I10 - ESSENTIAL (PRIMARY) HYPERTENSION (6) Tobacco abuse Code(s): Z72.0 - TOBACCO USE (7) Obesity Code(s): E66.9 - OBESITY, UNSPECIFIED (8) Anxiety Code(s): F41.9 - ANXIETY DISORDER, UNSPECIFIED
[2019-02-02] MEDS: FUROSEMIDE 40 MG/4 ML INJECTABLE VIAL IVPUSH SCH ×2 (05:29→14:40)
[2019-02-02] MEDS: ALBUTEROL SO4 2.5/IPRATROPIUM 0.5 INH SOL 3 ML VIAL.NEB. NEB PRN (08:04)
[2019-02-02] MEDS ORDERED: PT OWN MED DRAWER 7, Y5N ONE (09:52)
[2019-02-02] MEDS: DULoxetine HCL 30 MG CAPSULE.DR PO SCH (10:07)
[2019-02-02] MEDS: APIXABAN 5 MG TABLET PO SCH ×2 (10:07→22:39)
[2019-02-02] MEDS: ASPIRIN 81 MG CHEWABLE TABLETS PO SCH (10:07)
[2019-02-02] MEDS: SACUBITRIL/VALSARTAN 24 MG-26 MG TABLET PO SCH ×2 (10:07→22:39)
[2019-02-02] MEDS: amLODIPine BESYLATE 5 MG TABLET (FP) PO SCH (10:07)
[2019-02-02] MEDS: SPIRONOLACTONE 25 MG TABLET (FP) PO SCH (10:07)
[2019-02-02] MEDS: CARVEDILOL 6.25 MG TABLET (FP) PO SCH ×2 (10:08→22:39)
--- NOTE | 2019-02-02 10:39 | PN ---
Progress Note, Physician History of Present Illness: 68-year-old black male with PMhistory of nonischemic ccardiomyopthy (severely reduced LVEF),COPD hypertension, obesity, sedentary lifestyle, sleep apnea, anxiety, here today complaining of worsening shortness of breath. Patient states he was recently mid to the hospital discharged on 1211 about 3 AM this morning suddenly felt worsening shortness of breath did take his medications which include at home p.o. dose of Lasix 20 mg at that time. Called the ambulance on ambulance arrival he was given a DuoNeb and Decadron 10 mg. Was initially found to be with increased work of breathing or respiratory distress per EMS report. Following duo nebs and steroids his work of breathing did improve denies any fevers or chills denies new cough no history of PE or DVT does have leg swelling denies any current chest pain Former cocaine + alcohol and cigarettes (reduced the latter to / ppd) - Current Medication List Current Medications: Active Medications Albuterol/Ipratropium (Duoneb -) 1 amp NEB Q6H PRN PRN Reason: SHORTNESS OF BREATH Last Admin: 02/02/19 08:04 Dose: 1 amp Amlodipine Besylate (Norvasc -) 5 mg PO DAILY [facility] Last Admin: 02/02/19 10:07 Dose: 5 mg Apixaban (Eliquis -) 5 mg PO BID [facility] Last Admin: 02/02/19 10:07 Dose: 5 mg Aspirin (Asa -) 81 mg PO DAILY [facility] Last Admin: 02/02/19 10:07 Dose: 81 mg Carvedilol (Coreg -) 6.25 mg PO BID [facility] Last Admin: 02/02/19 10:08 Dose: 6.25 mg Duloxetine HCl (Cymbalta -) 30 mg PO DAILY [facility] Last Admin: 02/02/19 10:07 Dose: 30 mg Furosemide (Lasix Injection -) 40 mg IVPUSH BID@0600,1400 [facility] Last Admin: 02/02/19 05:29 Dose: 40 mg Mometasone Furoate (Asmanex 220mcg -) 1 puff IH HS [facility] Last Admin: 02/01/19 21:40 Dose: 1 puff Rosuvastatin Calcium (Crestor -) 10 mg PO HS [facility] Last Admin: 02/01/19 21:40 Dose: 10 mg Sacubitril/Valsartan (Entresto 24 Mg-26 Mg Tablet) 1 tab PO BID [facility] Last Admin: 02/02/19 10:07 Dose: 1 tab Spironolactone (Aldactone -) 50 mg PO DAILY [facility] Last Admin: 02/02/19 10:07 Dose: 50 mg - Objective Vital Signs: Vital Signs Temperature 98.3 F 02/02/19 06:00 Pulse Rate 83 02/02/19 06:00 Respiratory Rate 22 H 02/02/19 06:00 Blood Pressure 111/91 02/02/19 06:00 O2 Sat by Pulse Oximetry (%) 98 02/02/19 00:24 Eyes: Yes: WNL, Conjunctiva Clear, EOM Intact HENT: Yes: WNL, Atraumatic, Normocephalic Neck: Yes: WNL, Supple, Trachea Midline Cardiovascular: Yes: WNL, Regular Rate and Rhythm Respiratory: Yes: WNL, Regular, CTA Bilaterally Gastrointestinal: Yes: WNL, Normal Bowel Sounds Genitourinary: Yes: WNL Musculoskeletal: Yes: WNL Extremities: Yes: WNL Edema: No Integumentary: Yes: WNL Neurological: Yes: WNL, Alert, Oriented ...Motor Strength: WNL Psychiatric: Yes: WNL Labs: CBC, BMP 02/01/19 06:10 02/01/19 06:10 Assessment/Plan - Problems (1) Obesity Code(s): E66.9 - OBESITY, UNSPECIFIED (2) Anxiety Code(s): F41.9 - ANXIETY DISORDER, UNSPECIFIED (3) Sedentary lifestyle Code(s): Z91.89 - OTH PERSONAL RISK FACTORS, NOT ELSEWHERE CLASSIFIED (4) Acute respiratory failure Code(s): J96.00 - ACUTE RESPIRATORY FAILURE, UNSP W HYPOXIA OR HYPERCAPNIA (5) Tobacco abuse Code(s): Z72.0 - TOBACCO USE (6) Troponin level elevated Code(s): R79.89 - OTHER SPECIFIED ABNORMAL FINDINGS OF BLOOD CHEMISTRY (7) Acute on chronic systolic and diastolic heart failure, NYHA class 3 Assessment/Plan: +)JVD; congestive changes on CXR. BP elevated on admissikon, and likely a major contributer to pt's acute systolic CHF. Continue carvedilol, Entresto. IV Furosemide 40 mg bid. Increase spironolactone to 50 mg qd. F/u BP, HR, BUN/Cr, electrolytes, daily weight, Is and Os. Code(s): I50.43 - ACUTE ON CHRONIC COMBINED SYSTOLIC AND DIASTOLIC HRT FAIL (8) Atrial fibrillation Code(s): I48.91 - UNSPECIFIED ATRIAL FIBRILLATION (9) COPD (chronic obstructive pulmonary disease) Code(s): J44.9 - CHRONIC OBSTRUCTIVE PULMONARY DISEASE, UNSPECIFIED (10) Diabetes mellitus Code(s): E11.9 - TYPE 2 DIABETES MELLITUS WITHOUT COMPLICATIONS (11) HTN (hypertension) Code(s): I10 - ESSENTIAL (PRIMARY) HYPERTENSION (12) Hypercholesterolemia Code(s): E78.00 - PURE HYPERCHOLESTEROLEMIA, UNSPECIFIED
--- NOTE | 2019-02-02 12:02 | CONS ---
PULMONARY CONSULTATION DATE OF CONSULTATION: 02/01/2019 REFERRING PHYSICIAN: Aneta Abarca MD HISTORY: Patient is a 68-year-old male with past medical history of congestive heart failure with severe global hypokinesia left ventricle with severely reduced left ventricular systolic function with an ejection fraction of 35%, diastolic dysfunction, hypertension, insulin-dependent diabetes mellitus not ASHD, hypertension, likely COPD, CVA. Admitted to [facility] on January 31 with complaint of [id number] of increasing shortness of breath. Patient was recently hospitalized at [facility] secondary to congestive heart failure. States that for the past 2 weeks or so he started noticing increasing shortness of breath, dyspnea on exertion. He also complains of orthopnea. States he woke up 3 AM on the morning of admission to take his medications and felt short of breath at which time he presented to the emergency room. In the ER, he was in severe respiratory distress. He was started on BiPAP, administered Lasix, and transferred up to medical floor for further management. Patient denies any complaints of chest pain, but he does complain of chest pressure. Denies any nausea, vomiting, or diaphoresis. Denies any fevers or chills. He has an occasional cough, which is nonproductive. He has a history of tobacco use approximately 1 pack every 3 days for the past greater than 30 years. He currently still smokes a few cigarettes daily. He also states he has a history of occupational exposure to chemicals or fumes but unsure exactly which ones he was exposed to. PAST MEDICAL HISTORY: Again includes severe congestive heart failure with severe left ventricular systolic dysfunction, hypertension, hyperlipidemia, COPD, insulin-dependent diabetes mellitus, paroxysmal atrial fibrillation, and CVA. CURRENT MEDICATIONS: Include Lasix IV 40 mg daily, Aldactone, Entresto, Crestor , Norvasc, Coreg, DuoNeb, Cymbalta, Eliquis, fluticasone, Flovent Diskus. REVIEW OF SYSTEMS: Positive orthopnea, positive dyspnea, positive chest pressure. No nausea, no vomiting. No lower extremity edema. PHYSICAL EXAMINATION: General: Patient is a well-developed, well-nourished male awake, alert. Dyspneic on nasal cannula. Vital Signs: Blood pressure is 139/91, respiratory rate is 28, tachypneic, temperature 98, heart rate is 103. O2 saturation 40% on BiPAP. HEENT: Normocephalic, atraumatic. Neck: Supple. Heart: Tachycardic, S1, S2. Chest: Bibasilar crackles. Abdomen: Soft. Bowel sounds are positive. Extremities: No cyanosis or edema. LABORATORIES: WBC; INR 1.02, WBC 10.3, hemoglobin 11.4, hematocrit 34.4 with a platelet count of 226,000. Blood gas not performed. Chemistries; troponin 0.06. BNP 1235. Chest x-ray: Cardiomegaly, congestion bilaterally, bilateral pleural effusions. IMPRESSION: 1. Acute respiratory failure secondary acute on chronic systolic, diastolic congestive heart failure. 2. Severe left ventricular systolic dysfunction with [id number] global hypokinesia with a left ventricular ejection fraction of 30%-35%. 3. Arteriosclerotic heart disease. 4. Paroxysmal atrial fibrillation. 5. Positive troponin, likely demand ischemia, rule out non-ST myocardial infarction. 6. Chronic obstructive pulmonary disease. 7. Insulin-dependent diabetes mellitus. 8. History of cerebrovascular accident, hypertension. 9. Anemia. 10. Hyperlipidemia. 11. Tobacco abuse. PLAN: Continue Lasix, Aldactone. Continue Entresto. NIPPV as needed. Supplemental O2 to maintain O2 saturation 90% or greater. Inhaled bronchodilators. Strict intake and outputs. Obtain chest x-rays. Monitor electrolytes. Trend troponins. Daily weighs. Smoking cessation counseled.Low dose chest ct for lung cancer screening MIRIAM MARCH M.D. GILMER/[id number] MTDD
--- NOTE | 2019-02-02 13:30 | PN ---
Progress Note (short form) - Note Progress Note: PULMONARY States breathing is improving. No cough or wheezing. No chest pain. Vital Signs Period Temp Pulse Resp BP Sys/Coates Pulse Ox Last 24 Hr 97.8 F-98.3 F 83-90 20-22 109-139/60-91 97-98 Gen: NAD at rest Heart: RRR Lung: decreased breath sounds at the bases Abd: soft, nontender Ext: no edema CBC, BMP 02/01/19 06:10 02/01/19 06:10 Active Medications Albuterol/Ipratropium (Duoneb -) 1 amp NEB Q6H PRN PRN Reason: SHORTNESS OF BREATH Last Admin: 02/02/19 08:04 Dose: 1 amp Amlodipine Besylate (Norvasc -) 5 mg PO DAILY [facility] Last Admin: 02/02/19 10:07 Dose: 5 mg Apixaban (Eliquis -) 5 mg PO BID [facility] Last Admin: 02/02/19 10:07 Dose: 5 mg Aspirin (Asa -) 81 mg PO DAILY [facility] Last Admin: 02/02/19 10:07 Dose: 81 mg Carvedilol (Coreg -) 6.25 mg PO BID [facility] Last Admin: 02/02/19 10:08 Dose: 6.25 mg Duloxetine HCl (Cymbalta -) 30 mg PO DAILY [facility] Last Admin: 02/02/19 10:07 Dose: 30 mg Furosemide (Lasix Injection -) 40 mg IVPUSH BID@0600,1400 [facility] Last Admin: 02/02/19 05:29 Dose: 40 mg Mometasone Furoate (Asmanex 220mcg -) 1 puff IH [facility] Last Admin: 02/01/19 21:40 Dose: 1 puff Rosuvastatin Calcium (Crestor -) 10 mg PO [facility] Last Admin: 02/01/19 21:40 Dose: 10 mg Sacubitril/Valsartan (Entresto 24 Mg-26 Mg Tablet) 1 tab PO BID [facility] Last Admin: 02/02/19 10:07 Dose: 1 tab Spironolactone (Aldactone -) 50 mg PO DAILY [facility] Last Admin: 02/02/19 10:07 Dose: 50 mg A/P Acute on Chronic Systolic/Diastolic Heart Failure CAD +Troponins likely Demand Ischemia Paroxysmal Atrial Fibrillation COPD HTN DM Hyperlipidemia r/o [place] Smoker - continue lasix, aldactone - entresto - monitor urine output, creatinine - daily weights - O2 to keep SpO2 >90% - inhaled bronchodiltors - outpt PFTs, NPSG - rate controlled - continue anticoagulation - smoking cessation
--- NOTE | 2019-02-02 22:27 | PN ---
Progress Note, Physician History of Present Illness: Pt states that he is still dyspneic - Current Medication List Current Medications: Active Medications Albuterol/Ipratropium (Duoneb -) 1 amp NEB Q6H PRN PRN Reason: SHORTNESS OF BREATH Last Admin: 02/02/19 08:04 Dose: 1 amp Amlodipine Besylate (Norvasc -) 5 mg PO DAILY [facility] Last Admin: 02/02/19 10:07 Dose: 5 mg Apixaban (Eliquis -) 5 mg PO BID [facility] Last Admin: 02/02/19 10:07 Dose: 5 mg Aspirin (Asa -) 81 mg PO DAILY [facility] Last Admin: 02/02/19 10:07 Dose: 81 mg Carvedilol (Coreg -) 6.25 mg PO BID [facility] Last Admin: 02/02/19 10:08 Dose: 6.25 mg Duloxetine HCl (Cymbalta -) 30 mg PO DAILY [facility] Last Admin: 02/02/19 10:07 Dose: 30 mg Furosemide (Lasix Injection -) 40 mg IVPUSH BID@0600,1400 [facility] Last Admin: 02/02/19 14:40 Dose: 40 mg Mometasone Furoate (Asmanex 220mcg -) 1 puff IH HS [facility] Last Admin: 02/01/19 21:40 Dose: 1 puff Rosuvastatin Calcium (Crestor -) 10 mg PO HS [facility] Last Admin: 02/01/19 21:40 Dose: 10 mg Sacubitril/Valsartan (Entresto 24 Mg-26 Mg Tablet) 1 tab PO BID [facility] Last Admin: 02/02/19 10:07 Dose: 1 tab Spironolactone (Aldactone -) 50 mg PO DAILY [facility] Last Admin: 02/02/19 10:07 Dose: 50 mg - Objective Vital Signs: Vital Signs Temperature 98.4 F 02/02/19 14:15 Pulse Rate 79 02/02/19 14:15 Respiratory Rate 19 02/02/19 14:15 Blood Pressure 114/71 02/02/19 14:15 O2 Sat by Pulse Oximetry (%) 97 02/02/19 11:20 Constitutional: Yes: Well Nourished Neck: Yes: WNL, Supple Cardiovascular: Yes: WNL, Regular Rate and Rhythm Respiratory: Yes: Diminished Gastrointestinal: Yes: WNL, Normal Bowel Sounds, Soft Edema: Yes Labs: CBC, BMP 02/01/19 06:10 02/01/19 06:10 Problem List - Problems (1) Acute on chronic congestive heart failure Assessment/Plan: Cont IV lasix Cont entresto/spironolactone Monitor electrolytes Code(s): I50.9 - HEART FAILURE, UNSPECIFIED Qualifiers: Heart failure type: unspecified Qualified Code(s): I50.9 - Heart failure, unspecified (2) CAD (coronary artery disease) Assessment/Plan: Monitor serail cpk/troponin Cont asa Code(s): I25.10 - ATHSCL HEART DISEASE OF [place] CORONARY ARTERY W/O ANG PCTRS (3) Atrial fibrillation Assessment/Plan: Heart rate controlled Cont eleiquis Code(s): I48.91 - UNSPECIFIED ATRIAL FIBRILLATION (4) COPD (chronic obstructive pulmonary disease) Assessment/Plan: Cont duoneb Pulmonary consult Code(s): J44.9 - CHRONIC OBSTRUCTIVE PULMONARY DISEASE, UNSPECIFIED Qualifiers: COPD type: unspecified COPD Qualified Code(s): J44.9 - Chronic obstructive pulmonary disease, unspecified (5) HTN (hypertension) Assessment/Plan: BP stable Cont norvasc/coreg Code(s): I10 - ESSENTIAL (PRIMARY) HYPERTENSION (6) Tobacco abuse Code(s): Z72.0 - TOBACCO USE (7) Obesity Code(s): E66.9 - OBESITY, UNSPECIFIED (8) Anxiety Assessment/Plan: Due to depression Cont cymbalta Code(s): F41.9 - ANXIETY DISORDER, UNSPECIFIED
[2019-02-02] MEDS: ROSUVASTATIN CA 10 MG TABLET (FP) PO SCH (22:39)
[2019-02-02] MEDS: MOMETASONE FUROATE 220 MCG/IH INHALER IH SCH (22:39)
[2019-02-03] MEDS: metFORMIN HCL 500 MG TABLET (FP) PO SCH ×2 (06:32→16:55)
[2019-02-03] MEDS: INSULIN SLIDING SCALE (NOVOLOG) 1 VIAL SQ SCH ×4 (06:32→22:46)
[2019-02-03] MEDS: FUROSEMIDE 40 MG/4 ML INJECTABLE VIAL IVPUSH SCH ×2 (06:32→13:13)
[2019-02-03 06:39] LABS: BASO % 1.2 % (0-2.0); EOS % 3.3 % (0-4.5); HEMATOCRIT 36.5 % (35.4-49); LYMPH % 32.6 % (8-40); MCH 29.7 pg (25.7-33.7); MEAN CELL VOLUME 89.9 fl (80-96); MEAN PLT VOLUME 10.7 fl (7.5-11.1); MONO % 7.5 % (3.8-10.2); NEUT % 55.4 % (42.8-82.8); PLATELET COUNT 211 K/MM3 (134-434); RBC 4.06 M/mm3 (4.00-5.60); RDW 15.1 % (11.9-15.9); WHITE BLOOD COUNT 9.2 K/mm3 (4.0-10.0)
[2019-02-03 07:00] LABS: ALBUMIN 3.4 g/dl (3.4-5.0); BILIRUBIN,TOTAL 0.6 mg/dL (0.2-1); CALCIUM 7.9 mg/dL (8.5-10.1); CREATININE 1.1 mg/dL (0.55-1.3); POTASSIUM 3.7 mmol/L (3.5-5.1); TOT PROT 6.2 g/dl (6.4-8.2)
[2019-02-03] MEDS: APIXABAN 5 MG TABLET PO SCH ×2 (09:51→22:45)
[2019-02-03] MEDS: amLODIPine BESYLATE 5 MG TABLET (FP) PO SCH (09:52)
[2019-02-03] MEDS: CARVEDILOL 6.25 MG TABLET (FP) PO SCH ×2 (09:52→22:45)
[2019-02-03] MEDS: ASPIRIN 81 MG CHEWABLE TABLETS PO SCH (09:52)
[2019-02-03] MEDS: SACUBITRIL/VALSARTAN 24 MG-26 MG TABLET PO SCH ×2 (09:52→22:45)
[2019-02-03] MEDS: DULoxetine HCL 30 MG CAPSULE.DR PO SCH (09:52)
[2019-02-03] MEDS: SPIRONOLACTONE 25 MG TABLET (FP) PO SCH (09:52)
--- NOTE | 2019-02-03 12:38 | PN ---
Progress Note (short form) - Note Progress Note: PULMONARY Breathing continues to improve. No cough or wheezing. No chest pain. Vital Signs Period Temp Pulse Resp BP Sys/Coates Pulse Ox Last 24 Hr 97.9 F-98.4 F 78-82 - 114-134/68-89 97 Gen: NAD at rest Heart: RRR Lung: decreased breath sounds at the bases Abd: soft, nontender Ext: no edema CBC, BMP 02/03/19 05:25 02/03/19 05:25 Active Medications Albuterol/Ipratropium (Duoneb -) 1 amp NEB Q6H PRN PRN Reason: SHORTNESS OF BREATH Last Admin: 02/02/19 08:04 Dose: 1 amp Amlodipine Besylate (Norvasc -) 5 mg PO DAILY [facility] Last Admin: 02/03/19 09:52 Dose: 5 mg Apixaban (Eliquis -) 5 mg PO BID [facility] Last Admin: 02/03/19 09:51 Dose: 5 mg Aspirin (Asa -) 81 mg PO DAILY [facility] Last Admin: 02/03/19 09:52 Dose: 81 mg Carvedilol (Coreg -) 6.25 mg PO BID [facility] Last Admin: 02/03/19 09:52 Dose: 6.25 mg Duloxetine HCl (Cymbalta -) 30 mg PO DAILY [facility] Last Admin: 02/03/19 09:52 Dose: 30 mg Furosemide (Lasix Injection -) 40 mg IVPUSH BID@0600,1400 [facility] Last Admin: 02/03/19 06:32 Dose: 40 mg Insulin Aspart (Novolog Vial Sliding Scale -) 1 vial SQ [facility]; Protocol Last Admin: 02/03/19 11:14 Dose: 6 units Insulin Detemir (Levemir Vial) 20 units SQ [facility] Metformin HCl (Glucophage -) 500 mg PO BID@0700,1630 [facility] Last Admin: 02/03/19 06:32 Dose: 500 mg Mometasone Furoate (Asmanex 220mcg -) 1 puff IH [facility] Last Admin: 02/02/19 22:39 Dose: 1 puff Rosuvastatin Calcium (Crestor -) 10 mg PO [facility] Last Admin: 02/02/19 22:39 Dose: 10 mg Sacubitril/Valsartan (Entresto 24 Mg-26 Mg Tablet) 1 tab PO BID [facility] Last Admin: 02/03/19 09:52 Dose: 1 tab Spironolactone (Aldactone -) 50 mg PO DAILY [facility] Last Admin: 02/03/19 09:52 Dose: 50 mg A/P Acute on Chronic Systolic/Diastolic Heart Failure CAD +Troponins likely Demand Ischemia Paroxysmal Atrial Fibrillation COPD HTN DM Hyperlipidemia r/o [place] Smoker - continue lasix, aldactone - entresto - monitor urine output, creatinine - daily weights - O2 to keep SpO2 >90% - inhaled bronchodiltors - outpt PFTs, NPSG - rate controlled - continue anticoagulation - smoking cessation
[2019-02-03] MEDS ORDERED: ACETAMINOPHEN 325 MG TABLET (FP) PO ONE (15:15)
[2019-02-03] MEDS ORDERED: INSULIN (LEVEMIR) 100 UNITS/ML UNITS SQ SCH (22:00)
--- NOTE | 2019-02-03 22:11 | PN ---
Progress Note, Physician History of Present Illness: No new complaints - Current Medication List Current Medications: Active Medications Albuterol/Ipratropium (Duoneb -) 1 amp NEB Q6H PRN PRN Reason: SHORTNESS OF BREATH Last Admin: 02/02/19 08:04 Dose: 1 amp Amlodipine Besylate (Norvasc -) 5 mg PO DAILY [facility] Last Admin: 02/03/19 09:52 Dose: 5 mg Apixaban (Eliquis -) 5 mg PO BID [facility] Last Admin: 02/03/19 09:51 Dose: 5 mg Aspirin (Asa -) 81 mg PO DAILY [facility] Last Admin: 02/03/19 09:52 Dose: 81 mg Carvedilol (Coreg -) 6.25 mg PO BID [facility] Last Admin: 02/03/19 09:52 Dose: 6.25 mg Duloxetine HCl (Cymbalta -) 30 mg PO DAILY [facility] Last Admin: 02/03/19 09:52 Dose: 30 mg Furosemide (Lasix Injection -) 40 mg IVPUSH BID@0600,1400 [facility] Last Admin: 02/03/19 13:13 Dose: 40 mg Insulin Aspart (Novolog Vial Sliding Scale -) 1 vial SQ [facility]; Protocol Last Admin: 02/03/19 16:56 Dose: 4 units Insulin Detemir (Levemir Vial) 20 units SQ [facility] Metformin HCl (Glucophage -) 500 mg PO BID@0700,1630 [facility] Last Admin: 02/03/19 16:55 Dose: 500 mg Mometasone Furoate (Asmanex 220mcg -) 1 puff IH [facility] Last Admin: 02/02/19 22:39 Dose: 1 puff Rosuvastatin Calcium (Crestor -) 10 mg PO [facility] Last Admin: 02/02/19 22:39 Dose: 10 mg Sacubitril/Valsartan (Entresto 24 Mg-26 Mg Tablet) 1 tab PO BID [facility] Last Admin: 02/03/19 09:52 Dose: 1 tab Spironolactone (Aldactone -) 50 mg PO DAILY [facility] Last Admin: 02/03/19 09:52 Dose: 50 mg - Objective Vital Signs: Vital Signs Temperature 98.1 F 02/03/19 20:12 Pulse Rate 88 02/03/19 20:12 Respiratory Rate 18 02/03/19 20:12 Blood Pressure 150/96 02/03/19 20:12 O2 Sat by Pulse Oximetry (%) 95 02/03/19 20:35 Neck: Yes: WNL, Supple Cardiovascular: Yes: WNL, Regular Rate and Rhythm Respiratory: Yes: Diminished Gastrointestinal: Yes: WNL, Normal Bowel Sounds, Soft Edema: Yes Edema: LLE: Trace, RLE: Trace Labs: CBC, BMP 02/03/19 05:25 02/03/19 05:25 Problem List - Problems (1) Acute on chronic congestive heart failure Assessment/Plan: Cont IV lasix Cont entresto/spironolactone Monitor electrolytes Code(s): I50.9 - HEART FAILURE, UNSPECIFIED Qualifiers: Heart failure type: unspecified Qualified Code(s): I50.9 - Heart failure, unspecified (2) CAD (coronary artery disease) Assessment/Plan: Monitor serail cpk/troponin Cont asa Code(s): I25.10 - ATHSCL HEART DISEASE OF [place] CORONARY ARTERY W/O ANG PCTRS (3) Atrial fibrillation Assessment/Plan: Heart rate controlled Cont eleiquis Code(s): I48.91 - UNSPECIFIED ATRIAL FIBRILLATION (4) COPD (chronic obstructive pulmonary disease) Assessment/Plan: Cont duoneb Pulmonary consult Code(s): J44.9 - CHRONIC OBSTRUCTIVE PULMONARY DISEASE, UNSPECIFIED Qualifiers: COPD type: unspecified COPD Qualified Code(s): J44.9 - Chronic obstructive pulmonary disease, unspecified (5) HTN (hypertension) Assessment/Plan: BP stable Cont norvasc/coreg Code(s): I10 - ESSENTIAL (PRIMARY) HYPERTENSION (6) Tobacco abuse Code(s): Z72.0 - TOBACCO USE (7) Obesity Code(s): E66.9 - OBESITY, UNSPECIFIED (8) Anxiety Assessment/Plan: Due to depression Cont cymbalta Code(s): F41.9 - ANXIETY DISORDER, UNSPECIFIED
[2019-02-03] MEDS: MOMETASONE FUROATE 220 MCG/IH INHALER IH SCH (22:45)
[2019-02-03] MEDS: ROSUVASTATIN CA 10 MG TABLET (FP) PO SCH (22:45)
[2019-02-04] MEDS: metFORMIN HCL 500 MG TABLET (FP) PO SCH ×2 (06:47→16:57)
[2019-02-04] MEDS: FUROSEMIDE 40 MG/4 ML INJECTABLE VIAL IVPUSH SCH ×2 (06:48→13:50)
[2019-02-04] MEDS: INSULIN SLIDING SCALE (NOVOLOG) 1 VIAL SQ SCH ×4 (06:48→22:42)
[2019-02-04] MEDS ORDERED: PT OWN MED DRAWER 7, Y5N ONE ×3 (10:17→22:13)
[2019-02-04] MEDS: ASPIRIN 81 MG CHEWABLE TABLETS PO SCH (10:19)
[2019-02-04] MEDS: APIXABAN 5 MG TABLET PO SCH ×2 (10:20→22:41)
[2019-02-04] MEDS: CARVEDILOL 6.25 MG TABLET (FP) PO SCH ×2 (10:20→22:41)
[2019-02-04] MEDS: SPIRONOLACTONE 25 MG TABLET (FP) PO SCH (10:20)
[2019-02-04] MEDS: DULoxetine HCL 30 MG CAPSULE.DR PO SCH (10:20)
[2019-02-04] MEDS: amLODIPine BESYLATE 5 MG TABLET (FP) PO SCH (10:20)
[2019-02-04] MEDS: SACUBITRIL/VALSARTAN 24 MG-26 MG TABLET PO SCH ×2 (10:23→23:25)
--- NOTE | 2019-02-04 11:41 | PN ---
Progress Note, Physician History of Present Illness: pulmonary alert,feeling better,sob improving,-cp. - Current Medication List Current Medications: Active Medications Albuterol/Ipratropium (Duoneb -) 1 amp NEB Q6H PRN PRN Reason: SHORTNESS OF BREATH Last Admin: 02/02/19 08:04 Dose: 1 amp Amlodipine Besylate (Norvasc -) 5 mg PO DAILY [facility] Last Admin: 02/04/19 10:20 Dose: 5 mg Apixaban (Eliquis -) 5 mg PO BID [facility] Last Admin: 02/04/19 10:20 Dose: 5 mg Aspirin (Asa -) 81 mg PO DAILY [facility] Last Admin: 02/04/19 10:19 Dose: 81 mg Carvedilol (Coreg -) 6.25 mg PO BID [facility] Last Admin: 02/04/19 10:20 Dose: 6.25 mg Duloxetine HCl (Cymbalta -) 30 mg PO DAILY [facility] Last Admin: 02/04/19 10:20 Dose: 30 mg Furosemide (Lasix Injection -) 40 mg IVPUSH BID@0600,1400 [facility] Last Admin: 02/04/19 06:48 Dose: 40 mg Insulin Aspart (Novolog Vial Sliding Scale -) 1 vial SQ [facility]; Protocol Last Admin: 02/04/19 06:48 Dose: 6 units Insulin Detemir (Levemir Vial) 40 units SQ [facility] Metformin HCl (Glucophage -) 500 mg PO BID@0700,1630 [facility] Last Admin: 02/04/19 06:47 Dose: 500 mg Mometasone Furoate (Asmanex 220mcg -) 1 puff IH [facility] Last Admin: 02/03/19 22:45 Dose: 1 puff Rosuvastatin Calcium (Crestor -) 10 mg PO HS [facility] Last Admin: 02/03/19 22:45 Dose: 10 mg Sacubitril/Valsartan (Entresto 24 Mg-26 Mg Tablet) 1 tab PO BID [facility] Last Admin: 02/04/19 10:23 Dose: 1 tab Spironolactone (Aldactone -) 50 mg PO DAILY [facility] Last Admin: 02/04/19 10:20 Dose: 50 mg - Objective Vital Signs: Vital Signs Temperature 98.2 F 02/04/19 05:00 Pulse Rate 108 H 02/04/19 05:00 Respiratory Rate 18 02/04/19 05:00 Blood Pressure 136/76 02/04/19 05:00 O2 Sat by Pulse Oximetry (%) 95 02/03/19 20:35 Constitutional: Yes: Well Nourished, Calm Eyes: Yes: WNL HENT: Yes: WNL Neck: Yes: WNL Cardiovascular: Yes: Regular Rate and Rhythm, S1, S2 Respiratory: Yes: Diminished Gastrointestinal: Yes: Normal Bowel Sounds, Soft ...Rectal Exam: Yes: Hemorrhoids/External Extremities: Yes: WNL Edema: No Labs: CBC, BMP 02/03/19 05:25 Problem List - Problems (1) Tobacco abuse Code(s): Z72.0 - TOBACCO USE (2) Tobacco abuse counseling Code(s): Z71.6 - TOBACCO ABUSE COUNSELING (3) Acute on chronic systolic and diastolic heart failure, NYHA class 3 Code(s): I50.43 - ACUTE ON CHRONIC COMBINED SYSTOLIC AND DIASTOLIC HRT FAIL (4) Atrial fibrillation Code(s): I48.91 - UNSPECIFIED ATRIAL FIBRILLATION (5) CHF exacerbation Code(s): I50.9 - HEART FAILURE, UNSPECIFIED Qualifiers: Heart failure type: unspecified Qualified Code(s): I50.9 - Heart failure, unspecified (6) COPD (chronic obstructive pulmonary disease) Code(s): J44.9 - CHRONIC OBSTRUCTIVE PULMONARY DISEASE, UNSPECIFIED Qualifiers: COPD type: unspecified COPD Qualified Code(s): J44.9 - Chronic obstructive pulmonary disease, unspecified (7) Diabetes mellitus Code(s): E11.9 - TYPE 2 DIABETES MELLITUS WITHOUT COMPLICATIONS (8) Dyspnea Code(s): R06.00 - DYSPNEA, UNSPECIFIED Qualifiers: Dyspnea type: shortness of breath Qualified Code(s): R06.02 - Shortness of breath; R06.00 - Dyspnea, unspecified; R06.01 - Orthopnea (9) HTN (hypertension) Code(s): I10 - ESSENTIAL (PRIMARY) HYPERTENSION (10) Hypercholesterolemia Code(s): E78.00 - PURE HYPERCHOLESTEROLEMIA, UNSPECIFIED (11) Acute respiratory failure Code(s): J96.00 - ACUTE RESPIRATORY FAILURE, UNSP W HYPOXIA OR HYPERCAPNIA (12) Troponin level elevated Code(s): R79.89 - OTHER SPECIFIED ABNORMAL FINDINGS OF BLOOD CHEMISTRY Assessment/Plan IMP ACUTE RESPIRATORY FAILURE improving ACUTE ON CHRONIC SYSTOLIC/DIASTOLIC CHF SEVERE LV SYSTOLIC DYSFUNCTION,MODERATE -SEVERE GLOBAL HYPOKINESIA LVEF 30 -35% ASHD NON-OBSTRUCTIVE + TROPONIN LIKELY DEMAND ISCHEMIA ,R/O NSTEMI PAF COPD IDDM H/O CVA HTN HLD ANEMIA SMOKER SUSPECTED [place] PLAN LASIX ,ALDACTONE ENTRESO ELIQUIS NIPPV NEEDED SUPPLEMENTAL O2 TO MAINTAIN O2 SAT 90% OR GREATER INHALED BRONCHODILATORS STRICT I+OS F/U CHEST X-RAYS MONITOR LYTES TREND TROPONINS DAILY WTS SMOKING CESSATION COUNSELED OUTPATIENT PFTS OUTPATIENT SLEEP STUDIES OUTPATIENT LOW DOSE CHEST CT FOR LUNG CANCER SCREENING DR MARCH Problem List - Problems (1) Tobacco abuse Code(s): Z72.0 - TOBACCO USE (2) Tobacco abuse counseling Code(s): Z71.6 - TOBACCO ABUSE COUNSELING (3) Acute on chronic systolic and diastolic heart failure, NYHA class 3 Code(s): I50.43 - ACUTE ON CHRONIC COMBINED SYSTOLIC AND DIASTOLIC HRT FAIL (4) Atrial fibrillation Code(s): I48.91 - UNSPECIFIED ATRIAL FIBRILLATION (5) CHF exacerbation Code(s): I50.9 - HEART FAILURE, UNSPECIFIED Qualifiers: Heart failure type: unspecified Qualified Code(s): I50.9 - Heart failure, unspecified (6) COPD (chronic obstructive pulmonary disease) Code(s): J44.9 - CHRONIC OBSTRUCTIVE PULMONARY DISEASE, UNSPECIFIED (7) Diabetes mellitus Code(s): E11.9 - TYPE 2 DIABETES MELLITUS WITHOUT COMPLICATIONS (8) Dyspnea Code(s): R06.00 - DYSPNEA, UNSPECIFIED Qualifiers: Dyspnea type: shortness of breath Qualified Code(s): R06.02 - Shortness of breath; R06.00 - Dyspnea, unspecified; R06.01 - Orthopnea (9) HTN (hypertension) Code(s): I10 - ESSENTIAL (PRIMARY) HYPERTENSION (10) Hypercholesterolemia Code(s): E78.00 - PURE HYPERCHOLESTEROLEMIA, UNSPECIFIED (11) Acute respiratory failure Code(s): J96.00 - ACUTE RESPIRATORY FAILURE, UNSP W HYPOXIA OR HYPERCAPNIA (12) Troponin level elevated Code(s): R79.89 - OTHER SPECIFIED ABNORMAL FINDINGS OF BLOOD CHEMISTRY
--- NOTE | 2019-02-04 13:47 | PN ---
Progress Note, Physician Chief Complaint: Pt A&Ox3; animated (regarding TV program); no chest pain; no dyspnea unless he moves "too fast". History of Present Illness: 68-year-old black male with PMhistory of nonischemic ccardiomyopthy (severely reduced LVEF),COPD hypertension, obesity, sedentary lifestyle, sleep apnea, anxiety, here today complaining of worsening shortness of breath. Patient states he was recently mid to the hospital discharged on 1211 about 3 AM this morning suddenly felt worsening shortness of breath did take his medications which include at home p.o. dose of Lasix 20 mg at that time. Called the ambulance on ambulance arrival he was given a DuoNeb and Decadron 10 mg. Was initially found to be with increased work of breathing or respiratory distress per EMS report. Following duo nebs and steroids his work of breathing did improve denies any fevers or chills denies new cough no history of PE or DVT does have leg swelling denies any current chest pain Former cocaine + alcohol and cigarettes (reduced the latter to 1/4 ppd) - - Current Medication List Current Medications: Active Medications Albuterol/Ipratropium (Duoneb -) 1 amp NEB Q6H PRN PRN Reason: SHORTNESS OF BREATH Last Admin: 02/02/19 08:04 Dose: 1 amp Amlodipine Besylate (Norvasc -) 5 mg PO DAILY [facility] Last Admin: 02/04/19 10:20 Dose: 5 mg Apixaban (Eliquis -) 5 mg PO BID [facility] Last Admin: 02/04/19 10:20 Dose: 5 mg Aspirin (Asa -) 81 mg PO DAILY [facility] Last Admin: 02/04/19 10:19 Dose: 81 mg Carvedilol (Coreg -) 6.25 mg PO BID [facility] Last Admin: 02/04/19 10:20 Dose: 6.25 mg Duloxetine HCl (Cymbalta -) 30 mg PO DAILY [facility] Last Admin: 02/04/19 10:20 Dose: 30 mg Furosemide (Lasix Injection -) 40 mg IVPUSH BID@0600,1400 [facility] Last Admin: 02/04/19 06:48 Dose: 40 mg Insulin Aspart (Novolog Vial Sliding Scale -) 1 vial SQ [facility]; Protocol Last Admin: 02/04/19 11:51 Dose: 8 units Insulin Detemir (Levemir Vial) 40 units SQ [facility] Metformin HCl (Glucophage -) 500 mg PO BID@0700,1630 [facility] Last Admin: 02/04/19 06:47 Dose: 500 mg Mometasone Furoate (Asmanex 220mcg -) 1 puff IH [facility] Last Admin: 02/03/19 22:45 Dose: 1 puff Rosuvastatin Calcium (Crestor -) 10 mg PO [facility] Last Admin: 02/03/19 22:45 Dose: 10 mg Sacubitril/Valsartan (Entresto 24 Mg-26 Mg Tablet) 1 tab PO BID [facility] Last Admin: 02/04/19 10:23 Dose: 1 tab Spironolactone (Aldactone -) 50 mg PO DAILY [facility] Last Admin: 02/04/19 10:20 Dose: 50 mg - Objective Vital Signs: Vital Signs Temperature 97.5 F L 02/04/19 09:00 Pulse Rate 82 02/04/19 09:00 Respiratory Rate 20 02/04/19 09:00 Blood Pressure 126/74 02/04/19 09:00 O2 Sat by Pulse Oximetry (%) 98 02/04/19 09:00 Labs: CBC, BMP 02/03/19 05:25 02/03/19 05:25 Problem List - Problems (1) Obesity Code(s): E66.9 - OBESITY, UNSPECIFIED (2) Anxiety Code(s): F41.9 - ANXIETY DISORDER, UNSPECIFIED (3) Sedentary lifestyle Code(s): Z91.89 - OTH PERSONAL RISK FACTORS, NOT ELSEWHERE CLASSIFIED (4) Acute respiratory failure Code(s): J96.00 - ACUTE RESPIRATORY FAILURE, UNSP W HYPOXIA OR HYPERCAPNIA (5) Tobacco abuse Code(s): Z72.0 - TOBACCO USE (6) Troponin level elevated Code(s): R79.89 - OTHER SPECIFIED ABNORMAL FINDINGS OF BLOOD CHEMISTRY (7) Acute on chronic systolic and diastolic heart failure, NYHA class 3 Code(s): I50.43 - ACUTE ON CHRONIC COMBINED SYSTOLIC AND DIASTOLIC HRT FAIL (8) Atrial fibrillation Code(s): I48.91 - UNSPECIFIED ATRIAL FIBRILLATION (9) COPD (chronic obstructive pulmonary disease) Code(s): J44.9 - CHRONIC OBSTRUCTIVE PULMONARY DISEASE, UNSPECIFIED Qualifiers: COPD type: unspecified COPD Qualified Code(s): J44.9 - Chronic obstructive pulmonary disease, unspecified (10) Diabetes mellitus Code(s): E11.9 - TYPE 2 DIABETES MELLITUS WITHOUT COMPLICATIONS (11) HTN (hypertension) Code(s): I10 - ESSENTIAL (PRIMARY) HYPERTENSION (12) Hypercholesterolemia Code(s): E78.00 - PURE HYPERCHOLESTEROLEMIA, UNSPECIFIED
--- NOTE | 2019-02-04 13:51 | PN ---
Progress Note, Physician Chief Complaint: Pt A&Ox3; feeling better; no chest pain or dyspnea at rest. History of Present Illness: 68-year-old black male with PMhistory of nonischemic ccardiomyopthy (severely reduced LVEF),COPD hypertension, obesity, sedentary lifestyle, sleep apnea, anxiety, here today complaining of worsening shortness of breath. Patient states he was recently mid to the hospital discharged on 1211 about 3 AM this morning suddenly felt worsening shortness of breath did take his medications which include at home p.o. dose of Lasix 20 mg at that time. Called the ambulance on ambulance arrival he was given a DuoNeb and Decadron 10 mg. Was initially found to be with increased work of breathing or respiratory distress per EMS report. Following duo nebs and steroids his work of breathing did improve denies any fevers or chills denies new cough no history of PE or DVT does have leg swelling denies any current chest pain Former cocaine + alcohol and cigarettes (reduced the latter to 1/4 ppd) - - Current Medication List Current Medications: Active Medications Albuterol/Ipratropium (Duoneb -) 1 amp NEB Q6H PRN PRN Reason: SHORTNESS OF BREATH Last Admin: 02/02/19 08:04 Dose: 1 amp Amlodipine Besylate (Norvasc -) 5 mg PO DAILY [facility] Last Admin: 02/04/19 10:20 Dose: 5 mg Apixaban (Eliquis -) 5 mg PO BID [facility] Last Admin: 02/04/19 10:20 Dose: 5 mg Aspirin (Asa -) 81 mg PO DAILY [facility] Last Admin: 02/04/19 10:19 Dose: 81 mg Carvedilol (Coreg -) 6.25 mg PO BID [facility] Last Admin: 02/04/19 10:20 Dose: 6.25 mg Duloxetine HCl (Cymbalta -) 30 mg PO DAILY [facility] Last Admin: 02/04/19 10:20 Dose: 30 mg Furosemide (Lasix Injection -) 40 mg IVPUSH BID@0600,1400 [facility] Last Admin: 02/04/19 06:48 Dose: 40 mg Insulin Aspart (Novolog Vial Sliding Scale -) 1 vial SQ [facility]; Protocol Last Admin: 02/04/19 11:51 Dose: 8 units Insulin Detemir (Levemir Vial) 40 units SQ [facility] Metformin HCl (Glucophage -) 500 mg PO BID@0700,1630 [facility] Last Admin: 02/04/19 06:47 Dose: 500 mg Mometasone Furoate (Asmanex 220mcg -) 1 puff IH [facility] Last Admin: 02/03/19 22:45 Dose: 1 puff Rosuvastatin Calcium (Crestor -) 10 mg PO [facility] Last Admin: 02/03/19 22:45 Dose: 10 mg Sacubitril/Valsartan (Entresto 24 Mg-26 Mg Tablet) 1 tab PO BID [facility] Last Admin: 02/04/19 10:23 Dose: 1 tab Spironolactone (Aldactone -) 50 mg PO DAILY [facility] Last Admin: 02/04/19 10:20 Dose: 50 mg - Objective Vital Signs: Vital Signs Temperature 97.5 F L 02/04/19 09:00 Pulse Rate 82 02/04/19 09:00 Respiratory Rate 20 02/04/19 09:00 Blood Pressure 126/74 02/04/19 09:00 O2 Sat by Pulse Oximetry (%) 98 02/04/19 09:00 Constitutional: Yes: Obese Eyes: Yes: WNL HENT: Yes: WNL Neck: Yes: WNL Cardiovascular: Yes: Regular Rate and Rhythm, S1, S2, S4 Labs: CBC, BMP 02/03/19 05:25 02/03/19 05:25 Problem List - Problems (1) Obesity Assessment/Plan: truncal obesity (pt weighed 165 lbs in his 20s; now 210 lbs, concentrated "in the bellly--I eat too much"). Code(s): E66.9 - OBESITY, UNSPECIFIED (2) Anxiety Code(s): F41.9 - ANXIETY DISORDER, UNSPECIFIED (3) Sedentary lifestyle Code(s): Z91.89 - OTH PERSONAL RISK FACTORS, NOT ELSEWHERE CLASSIFIED (4) Acute respiratory failure Code(s): J96.00 - ACUTE RESPIRATORY FAILURE, UNSP W HYPOXIA OR HYPERCAPNIA (5) Tobacco abuse Code(s): Z72.0 - TOBACCO USE (6) Troponin level elevated Code(s): R79.89 - OTHER SPECIFIED ABNORMAL FINDINGS OF BLOOD CHEMISTRY (7) Acute on chronic systolic and diastolic heart failure, NYHA class 3 Assessment/Plan: Improving clinically F/u CXR PA and Lat. Code(s): I50.43 - ACUTE ON CHRONIC COMBINED SYSTOLIC AND DIASTOLIC HRT FAIL (8) Atrial fibrillation Code(s): I48.91 - UNSPECIFIED ATRIAL FIBRILLATION (9) COPD (chronic obstructive pulmonary disease) Code(s): J44.9 - CHRONIC OBSTRUCTIVE PULMONARY DISEASE, UNSPECIFIED Qualifiers: COPD type: unspecified COPD Qualified Code(s): J44.9 - Chronic obstructive pulmonary disease, unspecified (10) Diabetes mellitus Code(s): E11.9 - TYPE 2 DIABETES MELLITUS WITHOUT COMPLICATIONS (11) HTN (hypertension) Code(s): I10 - ESSENTIAL (PRIMARY) HYPERTENSION (12) Hypercholesterolemia Code(s): E78.00 - PURE HYPERCHOLESTEROLEMIA, UNSPECIFIED
--- NOTE | 2019-02-04 21:27 | PN ---
Progress Note, Physician History of Present Illness: No new complaints - Current Medication List Current Medications: Active Medications Albuterol/Ipratropium (Duoneb -) 1 amp NEB Q6H PRN PRN Reason: SHORTNESS OF BREATH Last Admin: 02/02/19 08:04 Dose: 1 amp Amlodipine Besylate (Norvasc -) 5 mg PO DAILY [facility] Last Admin: 02/04/19 10:20 Dose: 5 mg Apixaban (Eliquis -) 5 mg PO BID [facility] Last Admin: 02/04/19 10:20 Dose: 5 mg Aspirin (Asa -) 81 mg PO DAILY [facility] Last Admin: 02/04/19 10:19 Dose: 81 mg Carvedilol (Coreg -) 6.25 mg PO BID [facility] Last Admin: 02/04/19 10:20 Dose: 6.25 mg Duloxetine HCl (Cymbalta -) 30 mg PO DAILY [facility] Last Admin: 02/04/19 10:20 Dose: 30 mg Furosemide (Lasix Injection -) 40 mg IVPUSH BID@0600,1400 [facility] Last Admin: 02/04/19 13:50 Dose: 40 mg Insulin Aspart (Novolog Vial Sliding Scale -) 1 vial SQ [facility]; Protocol Last Admin: 02/04/19 16:57 Dose: 6 units Insulin Detemir (Levemir Vial) 40 units SQ [facility] Metformin HCl (Glucophage -) 500 mg PO BID@0700,1630 [facility] Last Admin: 02/04/19 16:57 Dose: 500 mg Mometasone Furoate (Asmanex 220mcg -) 1 puff IH [facility] Last Admin: 02/03/19 22:45 Dose: 1 puff Rosuvastatin Calcium (Crestor -) 10 mg PO [facility] Last Admin: 02/03/19 22:45 Dose: 10 mg Sacubitril/Valsartan (Entresto 24 Mg-26 Mg Tablet) 1 tab PO BID [facility] Last Admin: 02/04/19 10:23 Dose: 1 tab Spironolactone (Aldactone -) 50 mg PO DAILY [facility] Last Admin: 02/04/19 10:20 Dose: 50 mg - Objective Vital Signs: Vital Signs Temperature 97.5 F L 02/04/19 20:20 Pulse Rate 108 H 02/04/19 20:20 Respiratory Rate 18 02/04/19 20:20 Blood Pressure 139/82 02/04/19 20:20 O2 Sat by Pulse Oximetry (%) 98 02/04/19 09:00 Neck: Yes: WNL, Supple Cardiovascular: Yes: WNL, Regular Rate and Rhythm Respiratory: Yes: Diminished Gastrointestinal: Yes: WNL, Normal Bowel Sounds, Soft, Abdomen, Obese Edema: No Labs: CBC, BMP 02/03/19 05:25 02/03/19 05:25 Problem List - Problems (1) Acute on chronic congestive heart failure Assessment/Plan: Cont IV lasix Cont entresto/spironolactone Monitor electrolytes CXR showed ?diminished congestive changes and prominent roc Will check ct scan chest Code(s): I50.9 - HEART FAILURE, UNSPECIFIED Qualifiers: Heart failure type: unspecified Qualified Code(s): I50.9 - Heart failure, unspecified (2) CAD (coronary artery disease) Assessment/Plan: Monitor serail cpk/troponin Cont asa Code(s): I25.10 - ATHSCL HEART DISEASE OF [place] CORONARY ARTERY W/O ANG PCTRS (3) Atrial fibrillation Assessment/Plan: Heart rate controlled Cont eleiquis Code(s): I48.91 - UNSPECIFIED ATRIAL FIBRILLATION (4) COPD (chronic obstructive pulmonary disease) Assessment/Plan: Cont duoneb Pulmonary consult Code(s): J44.9 - CHRONIC OBSTRUCTIVE PULMONARY DISEASE, UNSPECIFIED Qualifiers: COPD type: unspecified COPD Qualified Code(s): J44.9 - Chronic obstructive pulmonary disease, unspecified (5) HTN (hypertension) Assessment/Plan: BP stable Cont norvasc/coreg Code(s): I10 - ESSENTIAL (PRIMARY) HYPERTENSION (6) Tobacco abuse Code(s): Z72.0 - TOBACCO USE (7) Obesity Code(s): E66.9 - OBESITY, UNSPECIFIED (8) Anxiety Code(s): F41.9 - ANXIETY DISORDER, UNSPECIFIED
[2019-02-04] MEDS ORDERED: INSULIN (LEVEMIR) 100 UNITS/ML UNITS SQ SCH (22:00)
[2019-02-04] MEDS: ROSUVASTATIN CA 10 MG TABLET (FP) PO SCH (22:41)
[2019-02-04] MEDS: MOMETASONE FUROATE 220 MCG/IH INHALER IH SCH (22:41)
[2019-02-05] MEDS: FUROSEMIDE 40 MG/4 ML INJECTABLE VIAL IVPUSH SCH (05:35)
[2019-02-05] MEDS: INSULIN SLIDING SCALE (NOVOLOG) 1 VIAL SQ SCH ×2 (06:00→13:05)
[2019-02-05 07:04] LABS: BASO % 0.8 % (0-2.0); EOS % 2.6 % (0-4.5); HEMATOCRIT 35.5 % (35.4-49); HEMOGLOBIN 12.1 GM/dL (11.7-16.9); MCH 29.9 pg (25.7-33.7); MEAN CELL VOLUME 87.9 fl (80-96); MEAN PLT VOLUME 9.9 fl (7.5-11.1); MONO % 6.5 % (3.8-10.2); NEUT % 59.1 % (42.8-82.8); PLATELET COUNT 225 K/MM3 (134-434); RBC 4.04 M/mm3 (4.00-5.60); RDW 14.6 % (11.9-15.9); WHITE BLOOD COUNT 9.6 K/mm3 (4.0-10.0)
[2019-02-05 07:47] LABS: ALBUMIN 3.5 g/dl (3.4-5.0); BILIRUBIN,TOTAL 0.5 mg/dL (0.2-1); BLOOD UREA NITROGEN 18.2 mg/dL (7-18); CALCIUM 8.4 mg/dL (8.5-10.1); CREATININE 1.1 mg/dL (0.55-1.3); POTASSIUM 3.5 mmol/L (3.5-5.1); TOT PROT 6.2 g/dl (6.4-8.2)
[2019-02-05] MEDS ORDERED: PT OWN MED DRAWER 7, Y5N ONE (09:27)
[2019-02-05] MEDS: DULoxetine HCL 30 MG CAPSULE.DR PO SCH (09:56)
[2019-02-05] MEDS: APIXABAN 5 MG TABLET PO SCH (09:56)
[2019-02-05] MEDS: CARVEDILOL 6.25 MG TABLET (FP) PO SCH (09:56)
[2019-02-05] MEDS: SPIRONOLACTONE 25 MG TABLET (FP) PO SCH (09:56)
[2019-02-05] MEDS: ASPIRIN 81 MG CHEWABLE TABLETS PO SCH (09:56)
[2019-02-05] MEDS: amLODIPine BESYLATE 5 MG TABLET (FP) PO SCH (09:56)
[2019-02-05] MEDS: SACUBITRIL/VALSARTAN 24 MG-26 MG TABLET PO SCH (10:58)
[2019-02-05] MEDS ORDERED: CARVEDILOL 6.25 MG TABLET (FP) PO ONE (11:45)
[2019-02-05 12:33] VITALS: TEMP 98
[2019-02-05 12:45] LABS: MAGNESIUM 1.7 mg/dL (1.8-2.4)
[2019-02-05] MEDS ORDERED: FUROSEMIDE 40 MG TABLET (FP) PO SCH (13:30)
--- NOTE | 2019-02-05 13:45 | PN ---
Progress Note (short form) - Note Progress Note: PULMONARY Breathing continues to improve. No cough or wheezing. CT chest done not read yet but shows trace pleural effusions and mild basilar atelectasis. Vital Signs Period Temp Pulse Resp BP Sys/Coates Pulse Ox Last 24 Hr 97.5 F-98.0 F 64-108 18-20 113-139/68-89 96-98 Gen: NAD at rest Heart: RRR Lung: decreased breath sounds at the bases Abd: soft, nontender Ext: no edema CBC, BMP 02/05/19 06:20 02/05/19 06:20 Active Medications Albuterol/Ipratropium (Duoneb -) 1 amp NEB Q6H PRN PRN Reason: SHORTNESS OF BREATH Last Admin: 02/02/19 08:04 Dose: 1 amp Amlodipine Besylate (Norvasc -) 5 mg PO DAILY [facility] Last Admin: 02/05/19 09:56 Dose: 5 mg Apixaban (Eliquis -) 5 mg PO BID [facility] Last Admin: 02/05/19 09:56 Dose: 5 mg Aspirin (Asa -) 81 mg PO DAILY [facility] Last Admin: 02/05/19 09:56 Dose: 81 mg Carvedilol (Coreg -) 12.5 mg PO BID [facility] Duloxetine HCl (Cymbalta -) 30 mg PO DAILY [facility] Last Admin: 02/05/19 09:56 Dose: 30 mg Furosemide (Lasix -) 40 mg PO DAILY [facility] Insulin Aspart (Novolog Vial Sliding Scale -) 1 vial SQ [facility]; Protocol Last Admin: 02/05/19 13:05 Dose: 6 units Insulin Detemir (Levemir Vial) 40 units SQ [facility] Last Admin: 02/04/19 22:42 Dose: 40 units Mometasone Furoate (Asmanex 220mcg -) 1 puff IH [facility] Last Admin: 02/04/19 22:41 Dose: 1 puff Rosuvastatin Calcium (Crestor -) 10 mg PO [facility] Last Admin: 02/04/19 22:41 Dose: 10 mg Sacubitril/Valsartan (Entresto 24 Mg-26 Mg Tablet) 1 tab PO BID [facility] Last Admin: 02/05/19 10:58 Dose: 1 tab Spironolactone (Aldactone -) 50 mg PO DAILY [facility] Last Admin: 02/05/19 09:56 Dose: 50 mg A/P Acute on Chronic Systolic/Diastolic Heart Failure CAD +Troponins likely Demand Ischemia Paroxysmal Atrial Fibrillation COPD HTN DM Hyperlipidemia r/o [place] Smoker - lasix, aldactone per cardiology - entresto - monitor urine output, creatinine - daily weights - O2 to keep SpO2 >90% - inhaled bronchodiltors - outpt PFTs, NPSG - rate controlled - continue anticoagulation - smoking cessation - can be discharged from pulmonary standpoint
[2019-02-05 15:39] VITALS: BP 134/83; PULSE 103
[2019-02-05] MEDS ORDERED: CARVEDILOL 12.5 MG TABLET (FP) PO SCH (22:00)
== END 2019-02-05 18:03 | disposition home or self-care (01) | DRG 291 ==
LOC: JER 07:27 → JERBED 09:27 → J4W 23:39
PROVIDERS: ADMIT Internal Medicine; ATTEND Internal Medicine
DX: I11.0 Hypertensive heart disease with heart failure (principal); J96.00 Acute respiratory failure, unspecified whether with hypoxia or hypercapnia; I24.8 Other forms of acute ischemic heart disease; J98.11 Atelectasis; I50.43 Acute on chronic combined systolic (congestive) and diastolic (congestive) heart failure; I48.0 Paroxysmal atrial fibrillation; E66.9 Obesity, unspecified; F17.210 Nicotine dependence, cigarettes, uncomplicated; J44.9 Chronic obstructive pulmonary disease, unspecified; I25.10 Atherosclerotic heart disease of native coronary artery without angina pectoris; E78.5 Hyperlipidemia, unspecified; E11.9 Type 2 diabetes mellitus without complications; Z68.31 Body mass index [BMI] 31.0-31.9, adult; I42.9 Cardiomyopathy, unspecified; F41.9 Anxiety disorder, unspecified
CPT/HCPCS: 36415; 36600; 71045-TC-FY; 71046-TC-FY; 71260-TC; 76604; 80053; 82550; 82553; 82803; 82962; 83036; 83735; 83880; 84484; 85025; 93005; 93010; 93308; 94640; 94660; 99285-25